=== PATIENT | male | born 1945 | race Caucasian/White ===

== ENCOUNTER 2016-08-20 09:55 | Inpatient (IN) | payer OTHER ==
[~2016-08-20] VITALS: Ht 167.6 cm; Wt 85.0 kg
[~2016-08-20 09:55] MED LIST: ALLO300T2 PO; AMLO-147 PO; ASPI-664 PO; ATOR20TA38 PO; HYDR-3671 PO; LEVO500T72 PO; MED4DP PO; METO25TA7 PO; MTF1000T PO
[2016-08-20] MEDS ORDERED: APR50 PO (10:37)
[2016-08-20] MEDS ORDERED: FURO-110 PO (10:38)
[2016-08-20] MEDS ORDERED: LOSA1TAB20 PO (10:38)
[2016-08-20] MEDS ORDERED: AZITHROMYCIN 500MG/NS (PMX) 250 ML IV STA (10:38)
[2016-08-20] MEDS ORDERED: BUDE6HFA INHALATION (10:38)
[2016-08-20] MEDS ORDERED: CEFTRIAXONE 1 GM/50 ML (PMX) 50 ML IVPB STA (10:38)
[2016-08-20] MEDS ORDERED: LEVALBUTEROL (NEB) 1.25 MG/0.5 ML AMP HHN ONE (11:00)
[2016-08-20] MEDS ORDERED: IPRATROPIUM (NEB) 0.5 MG/2.5 ML AMP INH ONE (11:00)
--- NOTE | 2016-08-20 11:13 | RADRPT ---
PROCEDURE: XR Chest. CLINICAL INDICATION: Shortness of breath. TECHNIQUE: Single frontal view of the chest was obtained COMPARISON: Chest x-ray 08/27/2015 09:24 a.m. FINDINGS: There are atherosclerotic calcifications in the aortic arch. There are degenerative osteophytes in the thoracic spine. The soft tissues are generous. The heart, pulmonary vasculature, lung chatterjee an d pleural spaces are normal. The left ventricle is mildly enlarged. There are clips in the left para tracheal area. IMPRESSION: 1. Atherosclerosis aortic arch with no evidence of an acute infiltrate. 2. Mild left ventricular enlargement. 3. Spondylosis of the thoracic spine. 4. No significant changes noted as compared to 08/27/2015. RPTAT:AAJJ Physician Timbo Date Time Electronically viewed and signed by Physician Timbo on 08/20/2016 11:13 SHIVA/
[2016-08-20 11:17] LABS: BASOPHILS % 0.1 % (0.0-2.0); HEMATOCRIT 44.2 % (42.0-52.0); HEMOGLOBIN 14.9 g/dl (14.0-18.0); LYMPHOCYTES # 0.3 10^3/ul (0.8-2.9); LYMPHOCYTES % 2.5 % (15.0-51.0); MEAN CORPUSCULAR HEMOGLOBIN 30.7 pg (29.0-33.0); MEAN CORPUSCULAR HGB CONC 33.7 g/dl (32.0-37.0); MEAN CORPUSCULAR VOLUME 91.1 fl (82.0-101.0); MEAN PLATELET VOLUME 9.8 fl (7.4-10.4); MONOCYTE # 0.4 10^3/ul (0.3-0.9); MONOCYTES % 3.8 % (0.0-11.0); NEUTROPHIL # 9.7 10^3/ul (1.6-7.5); NEUTROPHILS % 93.6 % (39.0-77.0); PLATELET COUNT 169 10^3/UL (140-440); RED BLOOD COUNT 4.86 10^6/ul (4.70-6.10); RED CELL DISTRIBUTION WIDTH 15.8 % (11.5-14.5); UNCORRECTED WBC 10.4 10^3/ul (4.8-10.8); WHITE BLOOD COUNT 10.4 10^3/ul (4.8-10.8)
[2016-08-20 11:18] LABS: CONDITION 1; LH ANALYZER COMMENTS 1
[2016-08-20 11:27] LABS: ALBUMIN 4.4 g/dl (3.3-4.9)
[2016-08-20 11:28] LABS: POTASSIUM 3.6 mmol/L (3.5-5.1)
[2016-08-20 11:29] LABS: CREATININE 3.5 mg/dl (0.61-1.24)
[2016-08-20 11:30] LABS: ALBUMIN/GLOBULIN RATIO 1.18; BILIRUBIN,INDIRECT 1.1 mg/dl (0-1.1); BILIRUBIN,TOTAL 1.1 mg/dl (0.2-1.3); TOTAL PROTEIN 8.1 g/dl (6.1-8.1)
[2016-08-20 11:31] LABS: CALCIUM 8.9 mg/dl (8.4-10.2)
[2016-08-20 11:46] LABS: TROPONIN-I 2.39 ng/ml (0.00-0.12)
[2016-08-20] MEDS ORDERED: ENOXAPARIN 100 MG/ML SYG SC ONE (12:30)
[2016-08-20 13:25] LABS: D-DIMER 3063.15 ng/ml (<460)
[2016-08-20] MEDS ORDERED: FUROSEMIDE 40 MG INJ IV ONE (14:00)
--- NOTE | 2016-08-20 14:09 | ERA ---
ER Documentation Chief Complaint Date/Time DATE: 08/20/16 TIME: 14:04 Chief Complaint sob for the past few days. no fevers. no cough or congestion no cp HPI This is 71-year-old male who states he had shortness of breath this morning that has progressively gotten worse over the past 2 days. He says that he is having dyspnea on exertion and orthopnea now and he never has had prior cardiac history. He has not had any chest pain. The daughter states that he had a fever and cough 3 days ago but lasted 1 day. Patient does not have any leg pain back pain abdominal pain nausea vomiting. He has no cough currently. He said this morning gradually started having increased work of breathing. His oxygenation level was 91% in triage ROS All systems reviewed and are negative except as per history of present illness. Medications Home Meds Active Scripts Methylprednisolone* (Medrol* DOSE PACK) 4 Mg/Dose-Pack Tab.ds.pk, 4 MG PO . DIRECTED for 6 Days, PACKET Prov:ASHWINI STARK MD 08/28/15 Levofloxacin* (Levaquin*) 500 Mg Tablet, 500 MG PO DAILY for 7 Days, TAB Prov:ASHWINI STARK MD 08/28/15 Reported Medications Budesonide-Formoterol Fumarate* (Symbicort*) 160-4.5 Hfa.aer.ad, 2 PUFF INHALATION BID, #1 EACH 08/20/16 Losartan-Hydrochlorothiazide (Losartan-HCTZ) 100-25 Mg Tab, 1 TAB PO DAILY, TAB 08/20/16 Furosemide* (Lasix*) 20 Mg Tablet, 20 MG PO DAILY, TAB 08/20/16 Hydralazine Hcl* (Hydralazine Hcl*) 50 Mg Tab, 50 MG PO Q8, #90 TAB 08/20/16 Atorvastatin Calcium* (Atorvastatin Calcium*) 20 Mg Tablet, 20 MG PO QHS, #30 TAB 08/23/15 Aspirin* (Aspirin* EC) 81 Mg Tablet.dr, 81 MG PO DAILY, TAB 08/23/15 Metoprolol Succinate* (Toprol XL*) 25 Mg Tab.sr.24h, 25 MG PO DAILY, #30 TAB 08/23/15 Amlodipine Besylate* (Amlodipine Besylate*) 10 Mg Tablet, 10 MG PO DAILY, #30 TAB 08/23/15 Metformin* (Glucophage*) 1,000 Mg Tablet, 1000 MG PO BID, #60 TAB 08/23/15 Allopurinol* (Allopurinol*) 300 Mg Tablet, 300 MG PO DAILY, TAB 08/23/15 Discontinued Reported Medications Hydralazine Hcl* (Hydralazine Hcl*) 25 Mg Tab, 25 MG PO Q8, #90 TAB 08/23/15 Allergies Allergies: Coded Allergies: No Known Allergy (Unverified , 08/20/16) PMhx/Soc History of Surgery: Yes (L Foot surgery, L carotid Endarterectomy) Anesthesia Reaction: No Hx Neurological Disorder: No Hx Respiratory Disorders: Yes (COPD ) Hx Cardiac Disorders: Yes (htn, CHF) Hx Psychiatric Problems: No Hx Miscellaneous Medical Probl: Yes (CENTRAL OBESITY) Hx Alcohol Use: No Hx Substance Use: No Hx Tobacco Use: Yes Smoking Status: Former smoker FmHx Family History: No coronary disease Physical Exam Vitals Vital Signs Date Time Temp Pulse Resp B/P Pulse Ox O2 Delivery O2 Flow Rate FiO2 08/20/16 13:45 105 22 123/81 100 Mask 08/20/16 11:09 120 28 92 Nasal Cannula 5.0 08/20/16 10:40 Nasal Cannula 5 08/20/16 10:40 Nasal Cannula 5.0 08/20/16 09:59 100.0 125 32 143/82 89 Physical Exam Const: Well-developed, well-nourished Head: Atraumatic, normocephalic Eyes: Normal Conjunctiva, PERRLA, EOMI, normal sclera, no nystagmus ENT: Normal External Ears, Nose and Mouth, moist mucus membranes. Neck: Full range of motion. No meningismus, no lymphadenopathy. Resp: Slight increased work of breathing with diffuse rhonchi scattered throughout both lung chatterjee Cardio: Tachycardia no murmurs, S1 S2 present Abd: Soft, non tender x 4, non distended. Normal bowel sounds, no guarding or rebound, no pulsitile abdominal masses or bruits Skin: No petechiae or rashes, no ecchymosis , no maculopapular rash Back: No midline or flank tenderness Ext: No cyanosis, or edema, FROM x 4, normal inspection, neurovascularly intact x 4 Neur: Awake and alert, STR 5/5 x 4, sensation intact x 4, no focal findings, cerebellum intact Psych: Normal Mood and Affect Result Diagram: 2/7/17 1030 08/20/16 1030 Results 24 hrs Laboratory Tests Test 08/20/16 10:30 08/20/16 11:30 Alanine Aminotransferase (ALT/SGPT) 60IU/L Albumin 4.4g/dl Albumin/Globulin Ratio 1.18 Alkaline Phosphatase 163IU/L Anion Gap 28 Aspartate Amino Transf (AST/SGOT) 77IU/L B-Type Natriuretic Peptide 53171WN/ML Basophils # 0.010^3/ul Basophils % 0.1% Blood Morphology Comment Blood Urea Nitrogen 66mg/dl Calcium Level 8.9mg/dl Carbon Dioxide Level 21mmol/L Chloride Level 90mmol/L Creatinine 3.50mg/dl Direct Bilirubin 0.00mg/dl Eosinophils # 0.010^3/ul Eosinophils % 0.0% Globulin 3.70g/dl Glucose Level 207mg/dl Hematocrit 44.2% Hemoglobin 14.9g/dl Indirect Bilirubin 1.1mg/dl Lymphocytes # 0.310^3/ul Lymphocytes % 2.5% Mean Corpuscular Hemoglobin 30.7pg Mean Corpuscular Hemoglobin Concent 33.7g/dl Mean Corpuscular Volume 91.1fl Mean Platelet Volume 9.8fl Monocytes # 0.410^3/ul Monocytes % 3.8% Neutrophils # 9.710^3/ul Neutrophils % 93.6% Nucleated Red Blood Cells # 0.010^3/ul Nucleated Red Blood Cells % 0.0/100WBC Platelet Count 95542^3/UL Potassium Level 3.6mmol/L Red Blood Count 4.8610^6/ul Red Cell Distribution Width 15.8% Sodium Level 135mmol/L Total Bilirubin 1.1mg/dl Total Protein 8.1g/dl Troponin I 2.390ng/ml White Blood Count 10.410^3/ul D-Dimer 3063.15ng/ml D-Dimer Comment Current Medications Medications (Trade) Dose Ordered Sig/Renato Route PRN Reason Start Time Stop Time Status Last Admin Dose Admin Ipratropium Justice 1.5 mg 1.5 mg ONCE ONCE INH 08/20/16 11:00 08/20/16 11:01 DC 08/20/16 11:08 Azithromycin 250 ml @ 250 mls/hr ONCE STAT IV 08/20/16 10:38 08/20/16 11:37 DC 2/7/17 11:44 Ceftriaxone Sodium (Rocephin) 50 ml @ 100 mls/hr ONCE STAT IVPB 08/20/16 10:38 08/20/16 11:07 DC 08/20/16 10:50 Levalbuterol (Xopenex Neb) 1.25 mg ONCE ONCE HHN 08/20/16 11:00 08/20/16 11:01 DC 08/20/16 11:08 Enoxaparin Sodium (Lovenox) 90 mg ONCE ONCE SC 08/20/16 12:30 08/20/16 12:31 DC 08/20/16 12:34 Furosemide (Lasix) 40 mg ONCE ONCE IV 08/20/16 14:00 08/20/16 14:01 UNV Procedures/MDM EKG: Rate/Rhythm: Sinus tachycardia QRS, ST, QT: NORMAL FL, QRS, QT] Impression: Sinus tachycardia ]PROCEDURE: XR Chest. CLINICAL INDICATION: Shortness of breath. TECHNIQUE: Single frontal view of the chest was obtained COMPARISON: Chest x-ray 08/27/2015 09:24 a.m. FINDINGS: There are atherosclerotic calcifications in the aortic arch. There are degenerative osteophytes in the thoracic spine. The soft tissues are generous. The heart, pulmonary vasculature, lung chatterjee and pleural spaces are normal. The left ventricle is mildly enlarged. There are clips in the left paratracheal area. IMPRESSION: 1. Atherosclerosis aortic arch with no evidence of an acute infiltrate. 2. Mild left ventricular enlargement. 3. Spondylosis of the thoracic spine. 4. No significant changes noted as compared to 08/27/2015. RPTAT:AAJJ Physician Timbo Date Time Electronically viewed and signed by Paddy Santizo Physician on 08/20/2016 11:13 SHIVA/ CC: SUSANA BABCOCK DO Patient has an elevated troponin and d-dimer and BNP. This patient may have had a myocardial infarction, though silent, that is put him into heart failure. There is no overt heart failure on chest x-ray however he sounds on his lung exam are consistent with heart failure. He also could have had a pulmonary embolism causing an elevated troponin and BNP I have ordered a VQ scan because his creatinine is too high however this may be inconclusive We will need to order sonogram of legs Been treated with Lovenox We will admit to telemetry for further workup Critical Care Time: 30 minutes Treatments/Evaluations: Close monitoring and treatment of unstable vital signs, cardiorespiratory, and neurologic status, while maintaining tight balance of fluid, respiratory, and cardiac interventions. This time includes discussing the case with the patient and the patient's family. This time does not include all procedures stated elsewhere in this record. This time also includes reviewing old records, labs and radiological studies. This time includes examining and re-examining the patient. Additionally, this time also includes arranging care with admitting and consulting physicians. Departure Diagnosis: Primary Impression: Non-STEMI (non-ST elevated myocardial infarction) Additional Impression: Dyspnea Qualified Code: R06.00 - Dyspnea, unspecified type Condition: Stable SUSANA BABCOCK DO Aug 20, 2016 14:08
[2016-08-20] MEDS ORDERED: ONDANSETRON 4 MG INJ IV PRN ×2 (14:30→15:30)
[2016-08-20] MEDS ORDERED: ACETAMINOPHEN 325 MG TAB PO PRN ×2 (14:30→15:30)
--- NOTE | 2016-08-20 14:57 | RADRPT ---
PROCEDURE: US Lower extremity Venous. CLINICAL INDICATION: Bilateral lower extremity swelling TECHNIQUE: Multiple sonographic images of the bilateral lower extremity deep venous system was obt ained utilizing grayscale, color-flow, compressive sonography and doppler imaging with augmentation. The images were reviewed on a PACS workstation. COMPARISON: None. FINDINGS: There is normal compressibility and flow within the bilateral common femoral, superficial femoral , posterior tibial and popliteal veins. RPTAT: AA IMPRESSION: No sonographic evidence for deep venous thrombosis. .David Hughes MD, MD Date Time Electronically viewed and signed by .David Hughes MD, on 08/20/2016 14:56 .S/
[2016-08-20] MEDS ORDERED: NITROGLYCERIN (SL) 0.4 MG TAB SL PRN (15:30)
[2016-08-20] MEDS ORDERED: HEPARIN 1000 UNITS/ML 10 ML INJ IV ONE (15:30)
[2016-08-20] MEDS ORDERED: LORAZEPAM 2 MG INJ IV PRN (15:30)
[2016-08-20] MEDS ORDERED: NACL 0.9% 3 ML SYG IV SCH (15:30)
[2016-08-20] MEDS ORDERED: DOCUSATE SODIUM 100 MG CAP PO PRN (15:30)
[2016-08-20] MEDS ORDERED: HEPARIN 1000 UNITS/ML 10 ML INJ IV PRN (15:30)
[2016-08-20] MEDS ORDERED: HEPARIN 25000 UNITS/D5W 250 ML IV SCH (16:00)
[2016-08-20] MEDS ORDERED: GLUCOSE GEL 15 GRAM TUBE PO PRN ×2 (16:30)
[2016-08-20] MEDS ORDERED: DEXTROSE 50% 50 ML SYRINGE IV PRN ×2 (16:30)
[2016-08-20] MEDS ORDERED: GLUCAGON 1 MG INJ IM PRN (16:30)
[2016-08-20] MEDS ORDERED: GLUCOSE GEL 15 GRAM TUBE BUCCAL PRN (16:30)
[2016-08-20 16:34] LABS: INR 0.87; PROTIME 11.8 Sec (12.2-14.2); PT RATIO 0.9
[2016-08-20 16:35] LABS: PARTIAL THROMBOPLASTIN TIME 40.7 Sec (25.0-35.0)
--- NOTE | 2016-08-20 16:35 | RADRPT ---
PROCEDURE: US Renal CLINICAL INDICATION: renal failure TECHNIQUE: Multiple sonographic images of the kidneys and bladder were obtained. Evaluation of th e kidneys and bladder was performed as well with pink scale and color and Doppler evaluation using a curved array transducer. The images were reviewed on a high-resolution PACS workstation. COMPARISON: No prior studies are available for comparison. FINDINGS: The right kidney measures 11.6 cm in length. The left kidney measures 12.4 cm in length. Mild increased echogenic kidneys. Focal 7 mm echogenic structure in the left kidney. No hydronephrosis. The bladder is grossly unrema rkable. IMPRESSION: No hydronephrosis. 7 mm nonobstructing left renal stone suggested. Echogenic kidneys can be seen with medical renal disease. RPTAT: AA .Jarad Bhandari MD, MD Date Time Electronically viewed and signed by .Jarad Bhandari MD, MD on 08/20/2016 16:35 .T/
[2016-08-20 16:36] LABS: CHOL/HDL RATIO 4.9 RATIO; MAGNESIUM 1.6 mg/dl (1.7-2.5)
--- NOTE | 2016-08-20 16:46 | HP ---
Date/Time of Note Date/Time of Note DATE: 08/20/16 TIME: 16:25 Assessment/Plan VTE Prophylaxis VTE Prophylaxis Intervention: heparin Assessment/Plan Assessment/Plan 71 yo male with past medical history of COPD, Essential Hypertension, Smoking abuse, Type II DM, CAD s/p PCI who presents with shortness of breath and lightheadedness. 1. Acute hypoxemic respiratory failure - 2/2 ACS vs PE - will admit the patient to telemetry, consult pulmonology, consult cardiology, obtain a 2D ECHO, cycle cardiac markers, check TSH/Mag, Morphine/BB/Aspirin/NTG SL prn, heparin drip 2. NSTEMI - will continue with heparin drip, see #1 3. CHF diastolic dysfunction - acute on chronic - continue with lasix, elevated BNP 4. Acute Renal Failure - 2/2 to ATN - will consult nephrology, IVF, renally adjust medications, avoid nephrotoxins 5. Essential Hypertension - continue with BB, HCTZ, lisinopril 6. Type II DM - check hgba1c, ISS 7. CAD s/p PCI - see #1 8. COPD - see #1, continue with nebulizers and symbicort 9. GI ppx - pepcid 10. DVT ppx - heparin gtt answered all of his questions. as per clinical course. this history and physical took greater then 45 minutes to complete HPI/ROS Admit Date/Time Admit Date/Time 08/20/2016, 4:26 pm Hx of Present Illness 71 yo male with past medical history of COPD, Essential Hypertension, Smoking abuse, Type II DM, CAD s/p PCI who presents with shortness of breath and lightheadedness. The patient states that for the last several days he has been having progressively worsening shortness of breath. He has been using his nebulizers and aerosol treatments for a longer period of time. Otherwise complains of chills, one episode of nausea with NBNB vomiting, no diarrhea/ constipation, and malaise. Otherwise denies any cardiac/pleuritic chest pain, loss of consciousness, headaches, urinary/bowel irregularities, or other constitutional symptoms. He did have a heart cath last year 03/2016 and underwent a PCI. ED course: therapeutic dose of lovenox, breathing treatments, V/Q scan ECHO: 08/2015 Conclusions 1. Normal left ventricular systolic function. Normal left ventricular cavity size. Normal left ventricular wall thickness. Ejection fraction is visually estimated at 60 %. Tissue Doppler/Mitral Doppler indices are consistent with impaired relaxation (Stage I diastolic dysfunction). 2. No significant aortic stenosis or insufficiency. severely thickened Non coronary cusp. clinical correlation is required. 3. Normal appearance of the tricuspid valve. Unable to obtain RVSP due to minimal presence of tricuspid regurgitation. 4. Normal appearance and function of the mitral valve with trace physiologic regurgitation. ROS 14 point review of systems completed, please refer to HPI for any positive findings PMH/Family/Social Past Medical History COPD Medical History: coronary artery disease, diabetes, high cholesterol, hypertension Past Surgical History PCI, left CEA, foot surgery Family History Significant Family History: hypertension (mother), other (both parents are ) Social History Alcohol Use: rarely Smoking Status: Former smoker Drug Use: none Exam/Review of Systems Vital Signs Vitals Vital Signs Date Time Temp Pulse Resp B/P Pulse Ox O2 Delivery O2 Flow Rate FiO2 08/20/16 16:00 101 20 122/79 08/20/16 13:45 100 Mask 08/20/16 11:09 5.0 08/20/16 09:59 100.0 Exam Exam Gen Aguila: moderate respiratory distress, AAOx4, obese male HEENT: NC/AT, PERRLA, EOMI, no pharyngeal erythema, no tonsillar exudates, no lymphadenopathy, no JVD, no carotid bruits NECK: supple, no thyromegaly THORAX: symmetrical, no obvious deformities CV: S1S2, RRR, no M/G/R Lungs: coarse breath sounds, with diminished breath sounds to the bases bilaterally, no overt wheezing or crackles appreciated Abd: soft, NT/ND, +BS, no rebound, no guarding, neg HSM, protuberant EXT: trace bilateral lower extremity edema, no ecchymosis, no clubbing, FROM Neuro: CN II-XII grossly intact, no focal deficits Psych: fair mood and affect Skin: C/D/I Labs Result Diagram: 08/20/16 1030 08/20/16 1030 Medications Medications Current Medications Sodium Chloride (NS) 1,000 ml @ 50 mls/hr Q20H IV ; Start 08/21/16 at 00:00 Lorazepam (Ativan) 0.5 mg Q6H PRN IV ANXIETY; Start 08/20/16 at 15:30 Ondansetron HCl (Zofran Inj) 4 mg Q6H PRN IV NAUSEA AND/OR VOMITING; Start 08/20 at 15:30 Aspirin (Aspirin) 81 mg DAILY PO ; Start 08/21/16 at 09:00 Nitroglycerin (Nitroglycerin (Sl Tab) 0.4 Mg) 1 tab Q5M PRN SL CHEST PAIN; Start 08/20/16 at 15:30 Acetaminophen (Tylenol Tab) 650 mg Q6H PRN PO PAIN LEVEL 1-3 OR FEVER; Start at 15:30 Morphine Sulfate (morphine) 2 mg Q4H PRN IV PAIN LEVEL 7-10; Start 08/20/16 at 15:30 Docusate Sodium (Colace) 100 mg Q12H PRN PO CONSTIPATION; Start 08/20/16 at 15: 30 Famotidine (Pepcid Iv) 20 mg DAILY IV ; Start 08/20/16 at 21:00 Atorvastatin Calcium (Lipitor) 20 mg QHS PO ; Start 08/20/16 at 21:00 Hydralazine HCl (Apresoline) 50 mg Q8 PO ; Start 08/20/16 at 22:00 Metoprolol Succinate (Toprol Xl) 25 mg DAILY PO ; Start 08/21/16 at 09:00 Hydrochlorothiazide (Hydrochlorothiazide) 25 mg DAILY PO ; Start 08/21/16 at 09: 00 Salmeterol Xinafoate/ Fluticasone (Advair 250/50 Diskus) 1 inh BID INH ; Start 08/20/16 at 21:00 Furosemide (Lasix) 20 mg BID IV ; Start 08/20/16 at 21:00 Miscellaneous Information 1 ea NOTE XX ; Start 08/20/16 at 16:30 Glucose (Glutose) 15 gm Q15M PRN PO DECREASED GLUCOSE; Start 08/20/16 at 16:30 Glucose (Glutose) 22.5 gm Q15M PRN PO DECREASED GLUCOSE; Start 08/20/16 at 16:30 Dextrose (D50w Syringe) 25 ml Q15M PRN IV DECREASED GLUCOSE; Start 08/20/16 at 16:30 Dextrose (D50w Syringe) 50 ml Q15M PRN IV DECREASED GLUCOSE; Start 08/20/16 at 16:30 Glucagon (Glucagen) 1 mg Q15M PRN IM DECREASED GLUCOSE; Start 08/20/16 at 16:30 Glucose (Glutose) 15 gm Q15M PRN BUCCAL DECREASED GLUCOSE; Start 08/20/16 at 16: 30 Procedures Procedures Venous Duplex LE IMPRESSION: No sonographic evidence for deep venous thrombosis. CXR IMPRESSION: 1. Atherosclerosis aortic arch with no evidence of an acute infiltrate. 2. Mild left ventricular enlargement. 3. Spondylosis of the thoracic spine. 4. No significant changes noted as compared to 08/27/2015. GEOVANNI GUEVARA MD Aug 20, 2016 16:36
[2016-08-20 17:07] LABS: THYROID STIMULATING HORMONE 1.56 MIU/L (0.465-4.680)
--- NOTE | 2016-08-20 17:11 | CONS ---
DATE OF ADMISSION: 08/20/2016 DATE OF CONSULTATION: 08/20/2016 REFERRING PHYSICIAN: Pedro Bashir, Nephrology. REASON FOR CONSULTATION: Acute kidney injury. Creatinine 3.5. HISTORY OF PRESENT ILLNESS: This is a 71-year-old male who has a past medical history of hypertensi on, CHF, COPD, diabetes mellitus, history of previous carotid atherosclerosis had a carotid endarter ectomy. The patient presented with a complaint of shortness of breath for the past few days. No f ever, no cough or congestion. The patient has a very congested lung examination and had a high BMP. The patient is noted to have a possible congestive heart failure exacerbation and also is noted t o have acute kidney injury with a creatinine of 3.5. The patient gives a history of dyspnea on exer tion and orthopnea now. Denies any previous cardiac history. He had a fever and cough 3 days ago, but this lasted for 1 day, currently no fever, no chills, headache, dizziness, blurry vision, consti pation, diarrhea, dysuria, increased urinary frequency. He was saturating 91% on room air. The patient denies any dysuria, hematuria or any hesitancy in the urine flow. He also denies any bl ood in the urine. No fevers, chills, headache. REVIEW OF SYSTEMS: As per HPI. PAST MEDICAL HISTORY: Hypertension, COPD, borderline diabetes mellitus, history of congestive heart failure, obesity. PAST SURGICAL HISTORY: History of left foot surgery, history of left carotid endarterectomy. FAMILY HISTORY: Noncontributory. SOCIAL HISTORY: No smoking, alcohol or recreational drug use. PHYSICAL EXAMINATION: VITAL SIGNS: Temperature 100, heart rate 105, respiration 22, blood pressure 122/79, saturation 100 % on face mask. GENERAL: Awake, in moderate distress due to the shortness of breath and hypoxia. HEENT: Pupils equal, round, reactive to light. NECK: Jugular venous distention up to the mid-neck. Neck supple. HEART: S1, S2, tachycardia, no murmur. LUNGS: Bilateral basilar crackles present. No wheezing. ABDOMEN: Soft, nontender, nondistended. Bowel sounds are present. EXTREMITIES: No clubbing, cyanosis, edema. NEUROLOGICAL: Nonfocal, intact. PSYCHIATRIC: Appropriate affect and mood. LABORATORY DATA AND DIAGNOSTIC IMAGING: Sodium 135, potassium 3.6, chloride 90, bicarbonate 21, BU N 66, creatinine 3.5, glucose 207, calcium 8.9. BNP 13,700. Troponin 2.39, albumin 4.4. D-dimer i s 3063. WBC 10.4, hemoglobin 14.9, platelet count is 169, Chest x-ray shows no obvious infiltrates. Lower extremity Doppler ultrasound is negative for DVT. IMPRESSION: This is a 71-year-old male with: 1. Acute hypoxic respiratory distress, likely secondary to congestive heart failure, diastolic, rul e out pulmonary embolism. 2. Elevated D-dimer. Rule out pulmonary embolisms. 3. Acute kidney injury versus acute kidney injury on chronic kidney disease, unknown stage, seconda ry to cardiorenal syndrome. 4. 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 5. History of congestive heart failure. 6. History of chronic obstructive pulmonary disease. 7. Acute non-ST elevation myocardial infarction. PLAN: Thank you, Dr. Bashir, for this consultation. Patient is currently seen in the emergency ro om. He is ordered to have a VQ scan to rule out pulmonary embolism. The patient cannot have a CT a ngiogram due to the elevated creatinine. I will order the CK total and uric acid with a.m. labs. 1. Urine studies including UA, urine sodium, urine protein, urine creatinine and urine eosinophils has been ordered. 2. I will stop the patient's Losartan 100 mg due to the creatinine of 3.5. 3. The patient received Lasix 40 mg IV x1 in the emergency room. I will start the patient on Lasix 20 mg IV b.i.d. 4. Heparin drip has been started with anticipation of pulmonary embolisms. 5. IV antibiotics to cover for pneumonia since the patient is febrile in the emergency room. 6. Lovenox has been given for elevated troponin consistent with non-ST elevation myocardial infarct ion. 7. Renal ultrasound has been ordered for the workup of acute kidney injury. Thank you, Dr. Bashir, for this consultation. I will continue to follow this patient while being i n the [facility]. Dictated By: LUBNA TAVARES MD, KP/JOVANNY Conf#: [id number] DID#: [id number]
--- NOTE | 2016-08-20 17:35 | CONS ---
Date/Time of Note Date/Time of Note DATE: 08/20/16 TIME: 17:26 Assessment/Plan Assessment/Plan Additional Assessment/Plan Acute kidney injury Elevated troponin concerning for non-ST elevation NM CAD with history of PCI COPD exacerbation Chronic respiratory failure Diabetes -Would continue IV heparin, patient was on Effient and tells me he has been compliant with medications. Would restart. Continue aspirin and statin therapy. Trend cardiac enzymes, obtain echocardiogram, telemetry monitoring. Hold all nephrotoxic medications. Respiratory treatment and oxygen supplementation. Consultation Date/Type/Reason Admit Date/Time 08/20/2016, 4:26 pm Type of Consultation: cv Reason for Consultation Elevated troponin Hx of Present Illness This is a 71-year-old male with history of COPD on home oxygen, CAD with PCI in March 2016, hypertension, who presents with fatigue, cough and shortness of breath going on for one week. Patient with intermittent fevers and chills. Cough is mildly productive with mild wheezing. Patient's fatigue continued to worsen today as well as cough so he came to the emergency room for evaluation. Denies any chest pain, dizziness or lightheadedness. He denies palpitations. He denies nausea or abdominal pain. 12 point review of systems was performed with all pertinent positives and negatives mentioned above and all else is negative Past Medical History COPD on home oxygen Medical History: coronary artery disease, diabetes, high cholesterol, hypertension Past Surgical History Past Surgical Hx: angioplasty Family History Significant Family History: no pertinent family hx Social History Alcohol Use: rarely Smoking Status: Former smoker Drug Use: none Exam/Review of Systems Vital Signs Vitals Vital Signs Date Time Temp Pulse Resp B/P Pulse Ox O2 Delivery O2 Flow Rate FiO2 08/20/16 16:00 101 20 122/79 08/20/16 13:45 100 Mask 08/20/16 11:09 5.0 08/20/16 09:59 100.0 Exam Mild dyspnea with wheezing, no apparent distress Constitutional: alert, oriented Head: normocephalic Neck: supple Respiratory: other (course breath sounds bilaterally with mild scattered rhonchi, minimal end expiratory wheezing) Cardiovascular: other (S1-S2 heard), regular rate and rhythm Gastrointestinal: bowel sounds, non-tender, soft Extremities: edema Results Result Diagram: 08/20/16 1030 08/20/16 1030 Results 24 hrs Laboratory Tests Test 08/20/16 10:30 08/20/16 11:30 08/20/16 15:30 Alanine Aminotransferase (ALT/SGPT) 60 Albumin 4.4 Albumin/Globulin Ratio 1.18 Alkaline Phosphatase 163 H Anion Gap 28 H Aspartate Amino Transf (AST/SGOT) 77 H B-Type Natriuretic Peptide 45528 H Basophils # 0.0 Basophils % 0.1 Blood Morphology Comment Blood Urea Nitrogen 66 H Calcium Level 8.9 Carbon Dioxide Level 21 Chloride Level 90 L Cholesterol Level 152 Cholesterol/HDL Ratio 4.9 Creatinine 3.50 H Direct Bilirubin 0.00 Eosinophils # 0.0 Eosinophils % 0.0 Globulin 3.70 H Glucose Level 207 HDL Cholesterol 31 Hematocrit 44.2 Hemoglobin 14.9 Indirect Bilirubin 1.1 LDL Cholesterol, Calculated 79 Lymphocytes # 0.3 L Lymphocytes % 2.5 L Magnesium Level 1.6 L Mean Corpuscular Hemoglobin 30.7 Mean Corpuscular Hemoglobin Concent 33.7 Mean Corpuscular Volume 91.1 Mean Platelet Volume 9.8 Monocytes # 0.4 Monocytes % 3.8 Neutrophils # 9.7 H Neutrophils % 93.6 H Nucleated Red Blood Cells # 0.0 Nucleated Red Blood Cells % 0.0 Platelet Count 169 # Potassium Level 3.6 Red Blood Count 4.86 Red Cell Distribution Width 15.8 H Sodium Level 135 Thyroid Stimulating Hormone (TSH) Pending Total Bilirubin 1.1 Total Protein 8.1 Triglycerides Level 211 H Troponin I 2.390 *H White Blood Count 10.4 D-Dimer 3063.15 H D-Dimer Comment Activated Partial Thromboplast Time 40.7 H INR International Normalized Ratio 0.87 Prothrombin Time 11.8 L Prothrombin Time Ratio 0.9 Medications Medications Current Medications Sodium Chloride (NS) 1,000 ml @ 50 mls/hr Q20H IV ; Start 08/21/16 at 00:00 Lorazepam (Ativan) 0.5 mg Q6H PRN IV ANXIETY; Start 08/20/16 at 15:30 Ondansetron HCl (Zofran Inj) 4 mg Q6H PRN IV NAUSEA AND/OR VOMITING; Start 08/20 at 15:30 Aspirin (Aspirin) 81 mg DAILY PO ; Start 08/21/16 at 09:00 Nitroglycerin (Nitroglycerin (Sl Tab) 0.4 Mg) 1 tab Q5M PRN SL CHEST PAIN; Start 08/20/16 at 15:30 Acetaminophen (Tylenol Tab) 650 mg Q6H PRN PO PAIN LEVEL 1-3 OR FEVER; Start at 15:30 Morphine Sulfate (morphine) 2 mg Q4H PRN IV PAIN LEVEL 7-10; Start 08/20/16 at 15:30 Docusate Sodium (Colace) 100 mg Q12H PRN PO CONSTIPATION; Start 08/20/16 at 15: 30 Famotidine (Pepcid Iv) 20 mg DAILY IV ; Start 08/20/16 at 21:00 Atorvastatin Calcium (Lipitor) 20 mg QHS PO ; Start 08/20/16 at 21:00 Hydralazine HCl (Apresoline) 50 mg Q8 PO ; Start 08/20/16 at 22:00 Metoprolol Succinate (Toprol Xl) 25 mg DAILY PO ; Start 08/21/16 at 09:00 Salmeterol Xinafoate/ Fluticasone (Advair 250/50 Diskus) 1 inh BID INH ; Start 08/20/16 at 21:00 Miscellaneous Information 1 ea NOTE XX ; Start 08/20/16 at 16:30 Glucose (Glutose) 15 gm Q15M PRN PO DECREASED GLUCOSE; Start 08/20/16 at 16:30 Glucose (Glutose) 22.5 gm Q15M PRN PO DECREASED GLUCOSE; Start 08/20/16 at 16:30 Dextrose (D50w Syringe) 25 ml Q15M PRN IV DECREASED GLUCOSE; Start 08/20/16 at 16:30 Dextrose (D50w Syringe) 50 ml Q15M PRN IV DECREASED GLUCOSE; Start 08/20/16 at 16:30 Glucagon (Glucagen) 1 mg Q15M PRN IM DECREASED GLUCOSE; Start 08/20/16 at 16:30 Glucose (Glutose) 15 gm Q15M PRN BUCCAL DECREASED GLUCOSE; Start 08/20/16 at 16: 30 Prasugrel (Effient) 10 mg DAILY PO ; Start 08/20/16 at 17:30; Status UNV Procedures Procedures ECG demonstrates sinus tachycardia at 121 bpm, incomplete right bundle-branch block, QRS 72 ms, nonspecific STT wave abnormalities Eddie Gutierrez DO Aug 20, 2016 17:35
[2016-08-20 17:53] LABS: CK-MB 2.01 ng/ml (0.0-2.4); TROPONIN-I 2.29 ng/ml (0.00-0.12)
[2016-08-20] MEDS: INSULIN ASPART [NOVOLOG] 3 ML PEN SC SCH ×2 (18:00→21:00)
[2016-08-20 18:05] VITALS: TEMP 100
[2016-08-20 20:09] VITALS: PULSE 108
[2016-08-20 20:33] VITALS: BP 140/79; RESP 21
[2016-08-20] MEDS: SALMETEROL/FLUTICASONE 250/50 INHA INH SCH (21:00)
[2016-08-20] MEDS ORDERED: NON-FORMULARY/PATIENT OWN MED (Budesonide-Formoterol Fumarate* (Symbicort*) 2 PUFF) INHALATION SCH (21:00)
[2016-08-20] MEDS ORDERED: ATORVASTATIN 20 MG TAB PO SCH (21:00)
[2016-08-20 21:13] VITALS: Ht 167.6 cm; Wt 85.0 kg
[2016-08-20] MEDS: ATORVASTATIN 40 MG TAB PO SCH (21:31)
[2016-08-20] MEDS: PRASUGREL HYDROCHLORIDE 10 MG TABLET PO SCH (21:31)
[2016-08-20] MEDS: FAMOTIDINE 20 MG INJ IV SCH (21:32)
[2016-08-20] MEDS: METOPROLOL 25 MG TAB PO SCH (21:32)
[2016-08-20] MEDS: FUROSEMIDE 20 MG INJ IV SCH (21:52)
[2016-08-20] MEDS: SOD CHLORIDE 0.9% 1,000 ML IV SCH (21:52)
[2016-08-20] MEDS: morphine 2 MG INJ IV PRN (22:03)
--- NOTE | 2016-08-20 22:15 | RADRPT ---
PROCEDURE: Ventilation-perfusion lung scan CLINICAL INDICATION: 71 -year-old patient with shortness of breath. TECHNIQUE: Following the inhalation of approximately 1.0 mCi of Tc-99m stannous DTPA aerosol, vent ilation images were obtained. The patient was then given an intravenous injection of 5.1 mCi of Tc- 99m MAA, in perfusion images were obtained. COMPARISON: No prior VQ scans. Correlation was made with chest x-ray dated August 20, 2016. FINDINGS: Ventilation images demonstrate nonhomogeneous distribution of activity in the lungs bilaterally. Perfusion images reveal matched nonhomogeneous distribution of activity in both lungs. The findings represent low probability for pulmonary embolus. IMPRESSION: Low probability for pulmonary embolus. RPTAT: QQ .Gail Chino MD, Date Time Electronically viewed and signed by .Gail Chino MD, on 08/20/2016 22:14 .L/
[2016-08-20 22:20] LABS: CK-MB 1.72 ng/ml (0.0-2.4)
[2016-08-20 22:22] LABS: TROPONIN-I 1.98 ng/ml (0.00-0.12)
[2016-08-20] MEDS: HEPARIN 25000 UNITS/250 ML 250 ML IV SCH (22:49)
[2016-08-20 23:11] LABS: ADD UMIC YES; URINE BILIRUBIN (Dip) NEGATIVE (NEGATIVE); URINE BLOOD (Dip) 1+ (NEGATIVE); URINE COLOR LT. YELLOW (YELLOW); URINE GLUCOSE (Dip) NEGATIVE (NEGATIVE); URINE KETONES (Dip) NEGATIVE (NEGATIVE); URINE LEUKOCYTE ESTERASE (Dip) NEGATIVE (NEGATIVE); URINE NITRITE (Dip) NEGATIVE (NEGATIVE); URINE TOTAL PROTEIN (Dip) 2+ (NEGATIVE); URINE UROBILINOGEN (Dip) 0.2 E.U./dL (0.1-1.0)
[2016-08-20 23:22] LABS: BACTERIA,URINE MODERATE; TRANSITIONAL EPI CELLS,URINE MODERATE
[2016-08-21] VITALS (12 sets, daily range): BP systolic 97–133; BP diastolic 62–90; PULSE 89–110; RESP 18–21
[2016-08-21] MEDS: FUROSEMIDE 20 MG INJ IV SCH ×2 (05:37→17:52)
[2016-08-21] MEDS: INSULIN ASPART [NOVOLOG] 3 ML PEN SC SCH ×4 (08:00→20:43)
[2016-08-21 08:21] LABS: BASOPHILS % 0.5 % (0.0-2.0); EOSINOPHILS # 0.1 10^3/ul (0.0-0.5); EOSINOPHILS % 0.9 % (0.0-7.0); HEMATOCRIT 38.9 % (42.0-52.0); LYMPHOCYTES # 0.4 10^3/ul (0.8-2.9); LYMPHOCYTES % 5.6 % (15.0-51.0); MEAN CORPUSCULAR HEMOGLOBIN 30.7 pg (29.0-33.0); MEAN CORPUSCULAR HGB CONC 33.4 g/dl (32.0-37.0); MEAN CORPUSCULAR VOLUME 91.7 fl (82.0-101.0); MEAN PLATELET VOLUME 9.4 fl (7.4-10.4); MONOCYTE # 0.8 10^3/ul (0.3-0.9); MONOCYTES % 10.6 % (0.0-11.0); NEUTROPHIL # 6.5 10^3/ul (1.6-7.5); NEUTROPHILS % 82.4 % (39.0-77.0); PLATELET COUNT 159 10^3/UL (140-440); RED BLOOD COUNT 4.24 10^6/ul (4.70-6.10); RED CELL DISTRIBUTION WIDTH 15.9 % (11.5-14.5); UNCORRECTED WBC 7.9 10^3/ul (4.8-10.8); WHITE BLOOD COUNT 7.9 10^3/ul (4.8-10.8)
[2016-08-21 08:30] LABS: CONDITION 1; LH ANALYZER COMMENTS 1
[2016-08-21 08:34] LABS: POTASSIUM 3.6 mmol/L (3.5-5.1)
[2016-08-21 08:37] LABS: CALCIUM 8.5 mg/dl (8.4-10.2); CREATININE 2.37 mg/dl (0.61-1.24)
[2016-08-21] MEDS ORDERED: LOSARTAN 50 MG TAB PO SCH ×2 (09:00)
[2016-08-21] MEDS ORDERED: HYDROCHLOROTHIAZIDE 25 MG TAB PO SCH (09:00)
[2016-08-21] MEDS ORDERED: NON-FORMULARY/PATIENT OWN MED (Losartan-Hydrochlorothiazide (Losartan-HCTZ) 1 TAB) PO SCH (09:00)
[2016-08-21] MEDS ORDERED: METOPROLOL (XL) 25 MG TAB PO SCH (09:00)
[2016-08-21] MEDS: FAMOTIDINE 20 MG INJ IV SCH (09:15)
[2016-08-21] MEDS: PRASUGREL HYDROCHLORIDE 10 MG TABLET PO SCH (09:15)
[2016-08-21] MEDS: ASPIRIN 81 MG TAB PO SCH (09:15)
[2016-08-21 09:16] LABS: URIC ACID 10.8 mg/dl (3.1-7.9)
[2016-08-21] MEDS: METOPROLOL 25 MG TAB PO SCH ×2 (09:16→20:44)
[2016-08-21] MEDS: SALMETEROL/FLUTICASONE 250/50 INHA INH SCH ×2 (09:16→20:45)
--- NOTE | 2016-08-21 11:12 | PN ---
Date/Time of Note Date/Time of Note DATE: 08/21/16 TIME: 11:07 Assessment/Plan VTE Prophylaxis VTE Prophylaxis Intervention: heparin Lines/Catheters IV [facility]ter Type [facility]from [facility] Peripheral IV Urinary Cath still in place: Yes Reason Cath still needed: urinary retention Assessment/Plan Assessment/Plan 71 yo male with past medical history of COPD, Essential Hypertension, Smoking abuse, Type II DM, CAD s/p PCI who presents with shortness of breath and lightheadedness. 1. Acute hypoxemic respiratory failure - 2/2 ACS vs PE - PE less likely, awaiting ECHO results, c/w pulm recs, supplemental O2, Stress Test today 2. NSTEMI - will continue with heparin drip, see #1 3. CHF diastolic dysfunction - acute on chronic - continue with lasix, elevated BNP, f/u ECHO 4. Acute Renal Failure - 2/2 to ATN - will consult nephrology, IVF, renally adjust medications, avoid nephrotoxins - improving 5. Essential Hypertension - continue with BB, HCTZ, lisinopril 6. Type II DM - hgba1c 7.1, ISS 7. CAD s/p PCI - see #1 8. COPD - see #1, continue with nebulizers and symbicort 9. GI ppx - pepcid 10. DVT ppx - heparin gtt dispo - continue with current treatment, possible stress test today. f/u recs. as per clinical course. this progress note took greater than 40 minutes to complete Subjective 24 Hr Interval Summary Free Text/Dictation Patient was admitted for worsening shortness of breath. still complaining of it , improved. He had a low probability V/Q scan. He was kept NPO as per nursing, possible LHC. Spoke to him about the care plan. 20 minutes spent. Exam/Review of Systems Vital Signs Vitals Vital Signs Date Time Temp Pulse Resp B/P Pulse Ox O2 Delivery O2 Flow Rate FiO2 08/21/16 08:54 100 08/21/16 08:02 98.2 18 133/74 90 08/20/16 20:00 3.0 08/20/16 18:05 Mask Intake and Output 08/20/16 08/20/16 08/21/16 15:00 23:00 07:00 Intake Total 530 ml Output Total 600 ml Balance -70 ml Exam Gen Aguila: mild respiratory distress, AAOx4, obese male HEENT: NC/AT, PERRLA, EOMI, no pharyngeal erythema, no tonsillar exudates, no lymphadenopathy, no JVD, no carotid bruits NECK: supple, no thyromegaly THORAX: symmetrical, no obvious deformities CV: S1S2, RRR, no M/G/R Lungs: coarse breath sounds, with diminished breath sounds to the bases bilaterally, no overt wheezing or crackles appreciated- improving aeration Abd: soft, NT/ND, +BS, no rebound, no guarding, neg HSM, protuberant EXT: trace bilateral lower extremity edema, no ecchymosis, no clubbing, FROM Neuro: CN II-XII grossly intact, no focal deficits Psych: fair mood and affect Skin: C/D/I Results Result Diagram: 08/21/16 0640 08/21/16 0640 Results 24 hrs Laboratory Tests Test 08/20/16 11:30 08/20/16 15:30 08/20/16 17:15 08/20/16 19:39 D-Dimer 3063.15 H D-Dimer Comment Activated Partial Thromboplast Time 40.7 H INR International Normalized Ratio 0.87 Prothrombin Time 11.8 L Prothrombin Time Ratio 0.9 Creatine Kinase 420 H Creatine Kinase Index 0.5 Creatinine Kinase MB (Mass) 2.01 Troponin I 2.290 *H Bedside Glucose 165 Test 08/20/16 21:42 08/20/16 22:00 08/21/16 06:40 08/21/16 09:12 Creatine Kinase 385 H 230 #H Creatine Kinase Index 0.4 Creatinine Kinase MB (Mass) 1.72 Troponin I 1.980 *H Urine Amorphous Urates MANY Urine Bacteria MODERATE Urine Bilirubin NEGATIVE Urine Clarity CLOUDY H Urine Coarse Granular Casts MODERATE Urine Color LT. YELLOW Urine Eosinophils % 0.0 Urine Glucose NEGATIVE Urine Hemoglobin 1+ H Urine Ketones NEGATIVE Urine Leukocyte Esterase NEGATIVE Urine Microscopic RBC 2-5 Urine Microscopic WBC 2-5 Urine Nitrite NEGATIVE Urine Random Creatinine 106.93 Urine Random Sodium 54 Urine Specific Scott 1.025 Urine Total Protein Urine Transitional Epithelial Cells MODERATE Urine Urobilinogen 0.2 E.U./dL Urine pH 5.5 Activated Partial Thromboplast Time 104.1 *H Anion Gap 21 #H Basophils # 0.0 Basophils % 0.5 Blood Morphology Comment Blood Urea Nitrogen 66 H Calcium Level 8.5 Carbon Dioxide Level 26 Chloride Level 94 L Creatinine 2.37 #H Eosinophils # 0.1 Eosinophils % 0.9 Glucose Level 125 # Hematocrit 38.9 L Hemoglobin 13.0 L Hemoglobin A1c 7.1 H Lymphocytes # 0.4 L Lymphocytes % 5.6 L Mean Corpuscular Hemoglobin 30.7 Mean Corpuscular Hemoglobin Concent 33.4 Mean Corpuscular Volume 91.7 Mean Platelet Volume 9.4 Monocytes # 0.8 Monocytes % 10.6 Neutrophils # 6.5 Neutrophils % 82.4 H Nucleated Red Blood Cells # 0.0 Nucleated Red Blood Cells % 0.0 Platelet Count 159 Potassium Level 3.6 Red Blood Count 4.24 L Red Cell Distribution Width 15.9 H Sodium Level 137 Uric Acid 10.8 H White Blood Count 7.9 # Bedside Glucose 130 Medications Medications Current Medications Sodium Chloride (NS) 1,000 ml @ 50 mls/hr Q20H IV Last administered on 21:52; Admin Dose 50 MLS/HR; Start 08/21/16 at 00:00 Lorazepam (Ativan) 0.5 mg Q6H PRN IV ANXIETY; Start 08/20/16 at 15:30 Ondansetron HCl (Zofran Inj) 4 mg Q6H PRN IV NAUSEA AND/OR VOMITING; Start 08/20 at 15:30 Aspirin (Aspirin) 81 mg DAILY PO Last administered on 08/21/16 09:15; Admin Dose 81 MG; Start 08/21/16 at 09:00 Nitroglycerin (Nitroglycerin (Sl Tab) 0.4 Mg) 1 tab Q5M PRN SL CHEST PAIN; Start 08/20/16 at 15:30 Acetaminophen (Tylenol Tab) 650 mg Q6H PRN PO PAIN LEVEL 1-3 OR FEVER; Start at 15:30 Morphine Sulfate (morphine) 2 mg Q4H PRN IV PAIN LEVEL 7-10 Last administered on 08/20/16 22:03; Admin Dose 2 MG; Start 08/20/16 at 15:30 Docusate Sodium (Colace) 100 mg Q12H PRN PO CONSTIPATION; Start 08/20/16 at 15: 30 Famotidine (Pepcid Iv) 20 mg DAILY IV Last administered on 08/21/16 09:15; Admin Dose 20 MG; Start 08/20/16 at 21:00 Hydralazine HCl (Apresoline) 50 mg Q8 PO Last administered on 08/20/16 21:32; Admin Dose 50 MG; Start 08/20/16 at 22:00 Salmeterol Xinafoate/ Fluticasone (Advair 250/50 Diskus) 1 inh BID INH Last administered on 08/21/16 09:16; Admin Dose 1 INH; Start 08/20/16 at 21:00 Miscellaneous Information 1 ea NOTE XX ; Start 08/20/16 at 16:30 Glucose (Glutose) 15 gm Q15M PRN PO DECREASED GLUCOSE; Start 08/20/16 at 16:30 Glucose (Glutose) 22.5 gm Q15M PRN PO DECREASED GLUCOSE; Start 08/20/16 at 16:30 Dextrose (D50w Syringe) 25 ml Q15M PRN IV DECREASED GLUCOSE; Start 08/20/16 at 16:30 Dextrose (D50w Syringe) 50 ml Q15M PRN IV DECREASED GLUCOSE; Start 08/20/16 at 16:30 Glucagon (Glucagen) 1 mg Q15M PRN IM DECREASED GLUCOSE; Start 08/20/16 at 16:30 Glucose (Glutose) 15 gm Q15M PRN BUCCAL DECREASED GLUCOSE; Start 08/20/16 at 16: 30 Prasugrel (Effient) 10 mg DAILY PO Last administered on 08/21/16 09:15; Admin Dose 10 MG; Start 08/20/16 at 17:30 Atorvastatin Calcium (Lipitor) 40 mg QHS PO Last administered on 08/20/16 21:31 ; Admin Dose 40 MG; Start 08/20/16 at 21:00 Metoprolol Tartrate (Lopressor) 25 mg BID PO Last administered on 08/21/16 09: 16; Admin Dose 25 MG; Start 08/20/16 at 21:00 Procedures Procedures NM scan IMPRESSION: Low probability for pulmonary embolus. GEOVANNI GUEVARA MD Aug 21, 2016 11:12
--- NOTE | 2016-08-21 13:07 | CONS ---
Date/Time of Note Date/Time of Note DATE: 08/21/16 TIME: 12:58 Assessment/Plan Assessment/Plan Additional Assessment/Plan 1. Acute hypoxic respiratory distress, likely secondary to congestive heart failure, diastoli 2. Elevated D-dimer. V/Q scan showed low probability of PE. 3. Acute kidney injury versus acute kidney injury on chronic kidney disease, unknown stage, secondary to cardiorenal syndrome. 4. 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 5. History of congestive heart failure. 6. History of chronic obstructive pulmonary disease. 7. Acute non-ST elevation myocardial infarction. 8. Left kidney Non obstructing renal stone PLAN: V/Q showed Low probability PE- on heparin gtt good urine output, Gaspar has good urine output US showed medical renal disease, left kidney non obstructinve renal stone on Lasix 20mg IV BID- CXR in AM Gaspar in place will isidroo david Consultation Date/Type/Reason Admit Date/Time Aug 20, 2016 at 14:25 Initial Consult Date Type of Consultation: NEPHROLOGY Reason for Consultation acute on chronic renal failure Referring Provider: JOAO ALBERTS MD 24 HR Interval Summary Free Text/Dictation Cr better, BUN still same, pt has Urine output 600cc Exam/Review of Systems Vital Signs Vitals Vital Signs Date Time Temp Pulse Resp B/P Pulse Ox O2 Delivery O2 Flow Rate FiO2 08/21/16 12:06 89 08/21/16 11:44 97.7 18 108/65 91 08/21/16 07:35 3.0 08/20/16 18:05 Mask Intake and Output 08/20/16 08/20/16 08/21/16 15:00 23:00 07:00 Intake Total 530 ml Output Total 600 ml Balance -70 ml Exam GENERAL: Awake, in moderate distress due to the shortness of breath and hypoxia. HEENT: Pupils equal, round, reactive to light. NECK: Jugular venous distention up to the mid-neck. Neck supple. HEART: S1, S2, tachycardia, no murmur. LUNGS: Bilateral basilar crackles present. No wheezing. ABDOMEN: Soft, nontender, nondistended. Bowel sounds are present. EXTREMITIES: No clubbing, cyanosis, edema. NEUROLOGICAL: Nonfocal, intact. PSYCHIATRIC: Appropriate affect and mood. Results Result Diagram: 2/8/17 0640 2/8/17 0640 Results 24 hrs Laboratory Tests Test 08/20/16 15:30 08/20/16 17:15 08/20/16 19:39 08/20/16 21:42 Activated Partial Thromboplast Time 40.7 H INR International Normalized Ratio 0.87 Prothrombin Time 11.8 L Prothrombin Time Ratio 0.9 Creatine Kinase 420 H 385 H Creatine Kinase Index 0.5 0.4 Creatinine Kinase MB (Mass) 2.01 1.72 Troponin I 2.290 *H 1.980 *H Bedside Glucose 165 Test 08/20/16 22:00 08/21/16 06:40 08/21/16 09:12 08/21/16 12:04 Urine Amorphous Urates MANY Urine Bacteria MODERATE Urine Bilirubin NEGATIVE Urine Clarity CLOUDY H Urine Coarse Granular Casts MODERATE Urine Color LT. YELLOW Urine Eosinophils % 0.0 Urine Glucose NEGATIVE Urine Hemoglobin 1+ H Urine Ketones NEGATIVE Urine Leukocyte Esterase NEGATIVE Urine Microscopic RBC 2-5 Urine Microscopic WBC 2-5 Urine Nitrite NEGATIVE Urine Random Creatinine 106.93 Urine Random Sodium 54 Urine Specific Jay Em 1.025 Urine Total Protein Urine Transitional Epithelial Cells MODERATE Urine Urobilinogen 0.2 E.U./dL Urine pH 5.5 Activated Partial Thromboplast Time 104.1 *H Anion Gap 21 #H Basophils # 0.0 Basophils % 0.5 Blood Morphology Comment Blood Urea Nitrogen 66 H Calcium Level 8.5 Carbon Dioxide Level 26 Chloride Level 94 L Creatine Kinase 230 #H Creatinine 2.37 #H Eosinophils # 0.1 Eosinophils % 0.9 Glucose Level 125 # Hematocrit 38.9 L Hemoglobin 13.0 L Hemoglobin A1c 7.1 H Lymphocytes # 0.4 L Lymphocytes % 5.6 L Mean Corpuscular Hemoglobin 30.7 Mean Corpuscular Hemoglobin Concent 33.4 Mean Corpuscular Volume 91.7 Mean Platelet Volume 9.4 Monocytes # 0.8 Monocytes % 10.6 Neutrophils # 6.5 Neutrophils % 82.4 H Nucleated Red Blood Cells # 0.0 Nucleated Red Blood Cells % 0.0 Platelet Count 159 Potassium Level 3.6 Red Blood Count 4.24 L Red Cell Distribution Width 15.9 H Sodium Level 137 Uric Acid 10.8 H White Blood Count 7.9 # Bedside Glucose 130 127 Medications Medications Current Medications Sodium Chloride (NS) 1,000 ml @ 50 mls/hr Q20H IV Last administered on t 21:52; Admin Dose 50 MLS/HR; Start 08/21/16 at 00:00 Lorazepam (Ativan) 0.5 mg Q6H PRN IV ANXIETY; Start 08/20/16 at 15:30 Ondansetron HCl (Zofran Inj) 4 mg Q6H PRN IV NAUSEA AND/OR VOMITING; Start 08/20 at 15:30 Aspirin (Aspirin) 81 mg DAILY PO Last administered on 08/21/16 09:15; Admin Dose 81 MG; Start 08/21/16 at 09:00 Nitroglycerin (Nitroglycerin (Sl Tab) 0.4 Mg) 1 tab Q5M PRN SL CHEST PAIN; Start 08/20/16 at 15:30 Acetaminophen (Tylenol Tab) 650 mg Q6H PRN PO PAIN LEVEL 1-3 OR FEVER; Start at 15:30 Morphine Sulfate (morphine) 2 mg Q4H PRN IV PAIN LEVEL 7-10 Last administered on 08/20/16 22:03; Admin Dose 2 MG; Start 08/20/16 at 15:30 Docusate Sodium (Colace) 100 mg Q12H PRN PO CONSTIPATION; Start 08/20/16 at 15: 30 Famotidine (Pepcid Iv) 20 mg DAILY IV Last administered on 08/21/16 09:15; Admin Dose 20 MG; Start 08/20/16 at 21:00 Hydralazine HCl (Apresoline) 50 mg Q8 PO Last administered on 08/20/16 21:32; Admin Dose 50 MG; Start 08/20/16 at 22:00 Salmeterol Xinafoate/ Fluticasone (Advair 250/50 Diskus) 1 inh BID INH Last administered on 08/21/16 09:16; Admin Dose 1 INH; Start 08/20/16 at 21:00 Miscellaneous Information 1 ea NOTE XX ; Start 08/20/16 at 16:30 Glucose (Glutose) 15 gm Q15M PRN PO DECREASED GLUCOSE; Start 08/20/16 at 16:30 Glucose (Glutose) 22.5 gm Q15M PRN PO DECREASED GLUCOSE; Start 08/20/16 at 16:30 Dextrose (D50w Syringe) 25 ml Q15M PRN IV DECREASED GLUCOSE; Start 08/20/16 at 16:30 Dextrose (D50w Syringe) 50 ml Q15M PRN IV DECREASED GLUCOSE; Start 08/20/16 at 16:30 Glucagon (Glucagen) 1 mg Q15M PRN IM DECREASED GLUCOSE; Start 08/20/16 at 16:30 Glucose (Glutose) 15 gm Q15M PRN BUCCAL DECREASED GLUCOSE; Start 08/20/16 at 16: 30 Prasugrel (Effient) 10 mg DAILY PO Last administered on 08/21/16 09:15; Admin Dose 10 MG; Start 08/20/16 at 17:30 Atorvastatin Calcium (Lipitor) 40 mg QHS PO Last administered on 08/20/16 21:31 ; Admin Dose 40 MG; Start 08/20/16 at 21:00 Metoprolol Tartrate (Lopressor) 25 mg BID PO Last administered on 08/21/16 09: 16; Admin Dose 25 MG; Start 08/20/16 at 21:00 LUBNA TAVARES MD Aug 21, 2016 13:07
--- NOTE | 2016-08-21 13:08 | CONS ---
Date/Time of Note Date/Time of Note DATE: 08/21/16 TIME: 13:06 Assessment/Plan Assessment/Plan Additional Assessment/Plan Acute kidney injury Non-ST elevation GA CAD with history of PCI COPD exacerbation Chronic respiratory failure Diabetes -Renal function improving, troponins are trending down. Patient denies any chest pain and shortness of breath has improved. Echocardiogram pending. Continue aspirin, Effient, statin, beta lory and heparin. 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 Fox and awaiting his response. Consultation Date/Type/Reason Admit Date/Time Aug 20, 2016 at 14:25 Initial Consult Date Type of Consultation: cv 24 HR Interval Summary Free Text/Dictation Patient denies chest pain, shortness of breath has improved significantly. Cough is still present but improving Exam/Review of Systems Vital Signs Vitals Vital Signs Date Time Temp Pulse Resp B/P Pulse Ox O2 Delivery O2 Flow Rate FiO2 08/21/16 12:06 89 08/21/16 11:44 97.7 18 108/65 91 08/21/16 07:35 3.0 08/20/16 18:05 Mask Intake and Output 08/20/16 08/20/16 08/21/16 15:00 23:00 07:00 Intake Total 530 ml Output Total 600 ml Balance -70 ml Exam No apparent distress Constitutional: alert, oriented Neck: supple Respiratory: other (course breath sounds bilaterally, minimal end expiratory wheezing) Cardiovascular: other (S1 and S2), regular rate and rhythm Gastrointestinal: bowel sounds, non-tender, soft Extremities: edema (trace) Results Result Diagram: 08/21/16 0640 08/21/16 0640 Results 24 hrs Laboratory Tests Test 08/20/16 15:30 08/20/16 17:15 08/20/16 19:39 08/20/16 21:42 Activated Partial Thromboplast Time 40.7 H INR International Normalized Ratio 0.87 Prothrombin Time 11.8 L Prothrombin Time Ratio 0.9 Creatine Kinase 420 H 385 H Creatine Kinase Index 0.5 0.4 Creatinine Kinase MB (Mass) 2.01 1.72 Troponin I 2.290 *H 1.980 *H Bedside Glucose 165 Test 08/20/16 22:00 08/21/16 06:40 08/21/16 09:12 08/21/16 12:04 Urine Amorphous Urates MANY Urine Bacteria MODERATE Urine Bilirubin NEGATIVE Urine Clarity CLOUDY H Urine Coarse Granular Casts MODERATE Urine Color LT. YELLOW Urine Eosinophils % 0.0 Urine Glucose NEGATIVE Urine Hemoglobin 1+ H Urine Ketones NEGATIVE Urine Leukocyte Esterase NEGATIVE Urine Microscopic RBC 2-5 Urine Microscopic WBC 2-5 Urine Nitrite NEGATIVE Urine Random Creatinine 106.93 Urine Random Sodium 54 Urine Specific [place] 1.025 Urine Total Protein Urine Transitional Epithelial Cells MODERATE Urine Urobilinogen 0.2 E.U./dL Urine pH 5.5 Activated Partial Thromboplast Time 104.1 *H Anion Gap 21 #H Basophils # 0.0 Basophils % 0.5 Blood Morphology Comment Blood Urea Nitrogen 66 H Calcium Level 8.5 Carbon Dioxide Level 26 Chloride Level 94 L Creatine Kinase 230 #H Creatinine 2.37 #H Eosinophils # 0.1 Eosinophils % 0.9 Glucose Level 125 # Hematocrit 38.9 L Hemoglobin 13.0 L Hemoglobin A1c 7.1 H Lymphocytes # 0.4 L Lymphocytes % 5.6 L Mean Corpuscular Hemoglobin 30.7 Mean Corpuscular Hemoglobin Concent 33.4 Mean Corpuscular Volume 91.7 Mean Platelet Volume 9.4 Monocytes # 0.8 Monocytes % 10.6 Neutrophils # 6.5 Neutrophils % 82.4 H Nucleated Red Blood Cells # 0.0 Nucleated Red Blood Cells % 0.0 Platelet Count 159 Potassium Level 3.6 Red Blood Count 4.24 L Red Cell Distribution Width 15.9 H Sodium Level 137 Uric Acid 10.8 H White Blood Count 7.9 # Bedside Glucose 130 127 Medications Medications Current Medications Sodium Chloride (NS) 1,000 ml @ 50 mls/hr Q20H IV Last administered on 21:52; Admin Dose 50 MLS/HR; Start 08/21/16 at 00:00 Lorazepam (Ativan) 0.5 mg Q6H PRN IV ANXIETY; Start 08/20/16 at 15:30 Ondansetron HCl (Zofran Inj) 4 mg Q6H PRN IV NAUSEA AND/OR VOMITING; Start 08/20 at 15:30 Aspirin (Aspirin) 81 mg DAILY PO Last administered on 08/21/16 09:15; Admin Dose 81 MG; Start 08/21/16 at 09:00 Nitroglycerin (Nitroglycerin (Sl Tab) 0.4 Mg) 1 tab Q5M PRN SL CHEST PAIN; Start 08/20/16 at 15:30 Acetaminophen (Tylenol Tab) 650 mg Q6H PRN PO PAIN LEVEL 1-3 OR FEVER; Start at 15:30 Morphine Sulfate (morphine) 2 mg Q4H PRN IV PAIN LEVEL 7-10 Last administered on 08/20/16 22:03; Admin Dose 2 MG; Start 08/20/16 at 15:30 Docusate Sodium (Colace) 100 mg Q12H PRN PO CONSTIPATION; Start 08/20/16 at 15: 30 Famotidine (Pepcid Iv) 20 mg DAILY IV Last administered on 08/21/16 09:15; Admin Dose 20 MG; Start 08/20/16 at 21:00 Hydralazine HCl (Apresoline) 50 mg Q8 PO Last administered on 08/20/16 21:32; Admin Dose 50 MG; Start 08/20/16 at 22:00 Salmeterol Xinafoate/ Fluticasone (Advair 250/50 Diskus) 1 inh BID INH Last administered on 08/21/16 09:16; Admin Dose 1 INH; Start 08/20/16 at 21:00 Miscellaneous Information 1 ea NOTE XX ; Start 08/20/16 at 16:30 Glucose (Glutose) 15 gm Q15M PRN PO DECREASED GLUCOSE; Start 08/20/16 at 16:30 Glucose (Glutose) 22.5 gm Q15M PRN PO DECREASED GLUCOSE; Start 08/20/16 at 16:30 Dextrose (D50w Syringe) 25 ml Q15M PRN IV DECREASED GLUCOSE; Start 08/20/16 at 16:30 Dextrose (D50w Syringe) 50 ml Q15M PRN IV DECREASED GLUCOSE; Start 08/20/16 at 16:30 Glucagon (Glucagen) 1 mg Q15M PRN IM DECREASED GLUCOSE; Start 08/20/16 at 16:30 Glucose (Glutose) 15 gm Q15M PRN BUCCAL DECREASED GLUCOSE; Start 08/20/16 at 16: 30 Prasugrel (Effient) 10 mg DAILY PO Last administered on 08/21/16 09:15; Admin Dose 10 MG; Start 08/20/16 at 17:30 Atorvastatin Calcium (Lipitor) 40 mg QHS PO Last administered on 08/20/16 21:31 ; Admin Dose 40 MG; Start 08/20/16 at 21:00 Metoprolol Tartrate (Lopressor) 25 mg BID PO Last administered on 08/21/16 09: 16; Admin Dose 25 MG; Start 08/20/16 at 21:00 Eddie Gutierrez DO Aug 21, 2016 13:08
[2016-08-21] MEDS: morphine 2 MG INJ IV PRN (15:50)
[2016-08-21] MEDS ORDERED: ALBUTEROL/IPRATROPIUM (NEB) 3 ML AMP HHN SCH (16:00)
[2016-08-21] MEDS: SOD CHLORIDE 0.9% 1,000 ML IV SCH (16:01)
--- NOTE | 2016-08-21 16:23 | CONS ---
DATE OF ADMISSION: 08/20/2016 DATE OF CONSULTATION: PULMONARY CONSULTATION REASON FOR CONSULTATION: Shortness of breath. Thank you, Dr. Bashir, for this consultation. HISTORY OF PRESENT ILLNESS: This is a pleasant 71-year-old gentleman with extensive remote tobacco history, came in with a several-day history of increasing shortness of breath, orthopnea, PND. Unde rwent a V/Q scan which showed low probability of pulmonary embolism. He did have elevated D-dimer. In addition, past medical history is complicated by diastolic dysfunction and chronic kidney diseas e which made CT angiogram contraindicated. Denied any fever or chills. He had occasional cough. N o hemoptysis or hematemesis. No nausea, no vomiting, no recent travel history. 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 MEDICATIONS: Per chart. ALLERGIES: NONE KNOWN. SOCIAL HISTORY: Nonsmoker, no alcohol, no history of drug use. FAMILY HISTORY: Noncontributory. SYSTEMS REVIEW: A 12-point review of systems was negative other than that mentioned above. PHYSICAL EXAMINATION: GENERAL: Well-nourished, well-developed gentleman, comfortable at rest, in no acute distress. VITAL SIGNS: Currently afebrile, pulse is 100, blood pressure 108/65, O2 saturation 96% on 3 L nasa l cannula. NECK: Supple. No JVD or lymphadenopathy. CARDIAC: S1, S2, no added sounds or murmurs. CHEST: Diminished air entry bilaterally. No rales or wheezes. ABDOMEN: Soft, nontender. No guarding or rebound. EXTREMITIES: No cyanosis, clubbing, edema. NEUROLOGIC: Generalized weakness, but no focal deficits. LABORATORY DATA: BUN 66, creatinine 2.37. INR was 0.87. White count 7.9, hemoglobin 13. DIAGNOSTIC DATA: Chest x-ray: No significant infiltrates or effusions. V/Q scan was low probabili ty. Lower extremity Dopplers unremarkable for deep vein thrombosis. Renal ultrasound showed a 7 mm nonobstructing left renal calculus. IMPRESSION AND PLAN: 1. Dyspnea, likely secondary to diastolic dysfunction and volume overload. 2. Possible component of acute on chronic bronchitis, although no bronchospasm today. 3. Hypoxemia secondary to above. 4. Chronic kidney disease. 5. History of essential hypertension. PLAN: 1. Agree with gentle diuresis. 2. Arterial blood gas on room air in the a.m. 3. Probable home O2 evaluation. 4. Outpatient pulmonary function testing. 5. Outpatient bronchodilator treatment. Dictated By: ALISA TAYLOR/JOVANNY Conf#: [id number] DID#: [id number]
[2016-08-21] MEDS ORDERED: LEVALBUTEROL (NEB) 0.63 MG/3 ML AMP HHN PRN (18:00)
[2016-08-21] MEDS ORDERED: IPRATROPIUM (NEB) 0.5 MG/2.5 ML AMP HHN PRN (18:00)
[2016-08-21 18:47] LABS: AADO2 Arterial 34.9 mmHg (7.0-24.0); Allen Test ACCEPTAB; Arterial Base Excess -1.7 mmol/L (-3.0-3); Arterial COHb 0.6 % (0.0-3.0); Arterial Fraction of Oxyhgb 92.3 % (93.0-99.0); Arterial HCO3 21.2 mmol/L (22.0-26.0); Arterial MetHb 0.5 % (0.0-1.5); Arterial Total Hemglobin 14.5 g/dl (12.0-18.0); MODE ROOM AIR
[2016-08-21] MEDS: HEPARIN 25000 UNITS/250 ML 250 ML IV SCH (19:46)
[2016-08-21] MEDS ORDERED: IPRATROPIUM (NEB) 0.5 MG/2.5 ML AMP HHN SCH (20:00)
[2016-08-21] MEDS ORDERED: LEVALBUTEROL (NEB) 0.63 MG/3 ML AMP HHN SCH (20:00)
[2016-08-21] MEDS: ATORVASTATIN 40 MG TAB PO SCH (20:43)
[2016-08-21] MEDS: ALBUTEROL/IPRATROPIUM (NEB) 3 ML AMP HHN SCH (21:50)
--- NOTE | 2016-08-21 21:54 | RADRPT ---
Echocardiogram Report Patient Name: PRAVEENA ROMANO Gender: Male Date: 1945 Study Date: 21-Aug-2016 Depositing Machine Operator: Monica Koehler [facility] Location: [id number] Ref. Physician: GEOVANNI GUEVARA Quality: Good Procedures: Transthoracic echocardiogram with complete 2D, M-Mode, and doppler examination. Indications: NSTEMI. Pulmonary embolism. 2D/M Mode Doppler Measurement Value Normal Ranges Measurement Value Normal Ranges LVIDd 2D 4.3 3.5 - 5.6 cm AV Peak Jaya 1.6 m/sec LVIDs 2D 2.1 2.1 - 4.1 cm AV Peak PG 9.9 mmHg LVPWd 2D 0.7 0.6 - 1.1 cm LVOT Peak Jaya 1.1 m/sec IVSd 2D 0.9 0.6 - 1.1 cm LVOT Peak PG 5.1 mmHg AoR Diam 2D 2.4 2.0 - 3.7 cm MV E Peak Jaya 0.6 m/sec EDV 2D 84.4 cm3 MV A Peak Jaya 1.2 m/sec ESV 2D 9.6 cm3 MV E/A 0.5 LA Dimen 2D 3.2 2.3 - 4.0 cm MV Decel Time 171 msec MV Decel [place] 3 MV E/A 0.5 TR Peak Jaya 3.5 m/sec TR Peak PG 49.2 mmHg RVSP 52.0 mmHg Findings Left Ventricle: Normal left ventricular systolic function. Normal left ventricular cavity size. Normal left ventricular wall thickness. Ejection fraction is visually estimated at 65 %. Tissue Doppler/Mitral Doppler indices are consistent with impaired relaxation (Stage I diastolic dysfunction). These segments of the LV are hypokinetic inferolateral mid segment and inferolateral base. Right Ventricle: Moderate enlargement of right ventricle. Mild right ventricular hypokinesis. Flattened septum in systole consistent with RV pressure overload. Left Atrium: The left atrium is normal in size. Right Atrium: There is mild enlargement of right atrium. Mitral Valve: Mitral valve leaflets appear mildly thickened. Trace mitral regurgitation. Aortic Valve: No significant aortic stenosis or insufficiency. Aortic cusps appear mildly calcified. Tricuspid Valve: Normal appearance of the tricuspid valve. Estimated peak PA systolic pressure 52 mmHg. There is mild tricuspid regurgitation. Pulmonic Valve: Normal pulmonic valve appearance. There is trace pulmonic regurgitation. Pericardium: Normal pericardium with no significant pericardial effusion. Aorta: Normal aortic root. IVC: Normal size and normal respiratory collapse consistent with normal right atrial pressure. Conclusions Normal left ventricular systolic function. Normal left ventricular cavity size. Normal left ventricular wall thickness. Ejection fraction is visually estimated at 65 %. Tissue Doppler/Mitral Doppler indices are consistent with impaired relaxation (Stage I diastolic dysfunction). These segments of the LV are hypokinetic infero-lateral mid segment. and infero-lateral base. Moderate enlargement of right ventricle. Mild right ventricular hypokinesis. Flattened septum in systole consistent with RV pressure overload. The left atrium is normal in size. There is mild enlargement of right atrium. Estimated peak PA systolic pressure 52 mmHg. There is mild tricuspid regurgitation. No significant valvular stenosis or regurgitation seen of remaining visualized valves. Normal pericardium with no significant pericardial effusion. Electronically Signed By: Eddie Gutierrez 21-Aug-2016 21:54:20 -0800 Patient Name: PRAVEENA ROMANO Study Date: 21-Aug-2016 [id number]
[2016-08-22] VITALS (12 sets, daily range): BP systolic 117–128; BP diastolic 63–73; PULSE 85–112; RESP 19–21
[2016-08-22] MEDS: ALBUTEROL/IPRATROPIUM (NEB) 3 ML AMP HHN SCH ×4 (02:12→19:53)
[2016-08-22] MEDS: HEPARIN 25000 UNITS/250 ML 250 ML IV SCH ×3 (03:34→21:46)
[2016-08-22] MEDS: FUROSEMIDE 20 MG INJ IV SCH ×2 (05:40→17:09)
[2016-08-22 07:03] LABS: INR 0.96; PROTIME 12.8 Sec (12.2-14.2)
[2016-08-22 07:08] LABS: BASOPHILS % 0.4 % (0.0-2.0); EOSINOPHILS # 0.1 10^3/ul (0.0-0.5); EOSINOPHILS % 1.6 % (0.0-7.0); HEMATOCRIT 37.8 % (42.0-52.0); LYMPHOCYTES # 0.5 10^3/ul (0.8-2.9); LYMPHOCYTES % 6.2 % (15.0-51.0); MEAN CORPUSCULAR HEMOGLOBIN 30.9 pg (29.0-33.0); MEAN CORPUSCULAR HGB CONC 34.4 g/dl (32.0-37.0); MEAN CORPUSCULAR VOLUME 89.8 fl (82.0-101.0); MEAN PLATELET VOLUME 9.6 fl (7.4-10.4); MONOCYTES % 12.8 % (0.0-11.0); NEUTROPHIL # 5.9 10^3/ul (1.6-7.5); PLATELET COUNT 158 10^3/UL (140-440); RED BLOOD COUNT 4.22 10^6/ul (4.70-6.10); UNCORRECTED WBC 7.5 10^3/ul (4.8-10.8); WHITE BLOOD COUNT 7.5 10^3/ul (4.8-10.8)
[2016-08-22 07:22] LABS: CONDITION 1; LH ANALYZER COMMENTS 1
[2016-08-22 07:35] LABS: ALBUMIN 3.5 g/dl (3.3-4.9)
[2016-08-22 07:38] LABS: ALBUMIN/GLOBULIN RATIO 1.16; BILIRUBIN,INDIRECT 0.6 mg/dl (0-1.1); BILIRUBIN,TOTAL 0.6 mg/dl (0.2-1.3); CALCIUM 8.5 mg/dl (8.4-10.2); CREATININE 1.48 mg/dl (0.61-1.24); TOTAL PROTEIN 6.5 g/dl (6.1-8.1)
[2016-08-22 07:39] LABS: POTASSIUM 2.8 mmol/L (3.5-5.1)
[2016-08-22 07:40] LABS: PARTIAL THROMBOPLASTIN TIME 83.3 Sec (25.0-35.0)
[2016-08-22] MEDS: INSULIN ASPART [NOVOLOG] 3 ML PEN SC SCH ×6 (08:32→20:25)
[2016-08-22] MEDS ORDERED: POTASSIUM CHLORIDE (SR) 20 MEQ TAB PO SCH (09:00)
[2016-08-22 09:39] LABS: AADO2 Arterial 98.5 mmHg (7.0-24.0); Allen Test ACCEPTAB; Arterial Base Excess 0.2 mmol/L (-3.0-3); Arterial COHb 0.7 % (0.0-3.0); Arterial Fraction of Oxyhgb 88.1 % (93.0-99.0); Arterial HCO3 22.9 mmol/L (22.0-26.0); Arterial MetHb 0.2 % (0.0-1.5); Arterial Total Hemglobin 14.4 g/dl (12.0-18.0); MODE NASAL CANNULA
[2016-08-22] MEDS: ASPIRIN 81 MG TAB PO SCH (10:01)
[2016-08-22] MEDS: PRASUGREL HYDROCHLORIDE 10 MG TABLET PO SCH (10:01)
[2016-08-22] MEDS: METOPROLOL 25 MG TAB PO SCH ×2 (10:02→20:26)
[2016-08-22] MEDS: FAMOTIDINE 20 MG INJ IV SCH (10:02)
[2016-08-22] MEDS: SALMETEROL/FLUTICASONE 250/50 INHA INH SCH ×2 (10:03→20:27)
--- NOTE | 2016-08-22 10:49 | PN ---
Date/Time of Note Date/Time of Note DATE: 08/22/16 TIME: 10:45 Assessment/Plan VTE Prophylaxis VTE Prophylaxis Intervention: heparin Lines/Catheters IV Catheter Type (from Nrs): Peripheral IV Urinary Cath still in place: Yes Reason Cath still needed: urinary retention Assessment/Plan Assessment/Plan 71 yo male with past medical history of COPD, Essential Hypertension, Smoking abuse, Type II DM, CAD s/p PCI who presents with shortness of breath and lightheadedness. 1. Acute hypoxemic respiratory failure - 2/2 ACS vs PE - PE less likely, ECHO EF 65% with stage I diastolic dysfunction, c/w pulm recs, supplemental O2, 2. NSTEMI - will continue with heparin drip, see #1 3. CHF diastolic dysfunction - acute on chronic - continue with lasix, elevated BNP, gentle diuresis 4. Acute Renal Failure - 2/2 to ATN - will consult nephrology, IVF, renally adjust medications, avoid nephrotoxins - improving 5. Essential Hypertension - continue with BB, HCTZ, lisinopril 6. Type II DM - hgba1c 7.1, ISS 7. CAD s/p PCI - see #1 8. COPD - see #1, continue with nebulizers and symbicort 9. GI ppx - pepcid 10. DVT ppx - heparin gtt dispo - continue with current treatment, right shoulder xray - if stable, dc tomorrow? this progress note took greater than 30 minutes to complete Subjective 24 Hr Interval Summary Free Text/Dictation No overnight events. States that he is breathing better. spoke to him about the care plan. he is complaining of right shoulder pain, denies any direct trauma or injury. 15 minutes spent. Exam/Review of Systems Vital Signs Vitals Vital Signs Date Time Temp Pulse Resp B/P Pulse Ox O2 Delivery O2 Flow Rate FiO2 08/22/16 08:36 2.0 08/22/16 08:35 76 20 Nasal Cannula 08/22/16 08:22 98.1 123/71 90 08/22/16 02:13 100 Intake and Output 08/21/16 08/21/16 08/22/16 15:00 23:00 07:00 Intake Total 1200 ml Output Total 1200 ml Balance 0 ml Exam Gen Aguila: mild respiratory distress, AAOx4, obese male HEENT: NC/AT, PERRLA, EOMI, no pharyngeal erythema, no tonsillar exudates, no lymphadenopathy, no JVD, no carotid bruits NECK: supple, no thyromegaly THORAX: symmetrical, no obvious deformities CV: S1S2, RRR, no M/G/R Lungs: coarse breath sounds, with diminished breath sounds to the bases bilaterally, no overt wheezing or crackles appreciated- improving aeration Abd: soft, NT/ND, +BS, no rebound, no guarding, neg HSM, protuberant EXT: trace bilateral lower extremity edema, no ecchymosis, no clubbing, FROM MSK: decreased range of motion on right shoulder, pain with passive elevation Neuro: CN II-XII grossly intact, no focal deficits Psych: fair mood and affect Skin: C/D/I Results Result Diagram: 08/22/16 0555 08/22/16 0555 Results 24 hrs Laboratory Tests Test 08/21/16 12:04 08/21/16 16:44 08/21/16 17:42 08/21/16 18:00 Bedside Glucose 127 270 H Activated Partial Thromboplast Time 37.5 H Arterial Blood HCO3 21.2 L Arterial Blood Base Excess -1.7 Arterial Blood Oxygen Saturation 93.3 L Wan Test ACCEPTAB Arterial Blood Gas Puncture Site Left Radial Arterial Blood Carboxyhemoglobin 0.6 Arterial Blood Date Drawn 08/21/2016 6:30:59 PM Arterial Blood Methemoglobin 0.5 Arterial Blood pCO2 (Temp correct) 30.9 L Arterial Blood pH (Temp corrected) 7.454 H Arterial Blood pO2 (Temp corrected) 69.4 L Blood Gas A-a O2 Differential 34.9 H Blood Gas Actual Respiration Rate 18 Blood Gas Modality ROOM AIR Blood Gas Notified Time 08/21/2016 6:46:45 PM Blood Gas Notified Whom AC Blood Gas Specimen Source Blood arterial Blood Gas Temperature 37.0 FiO2 21.0 Oxyhemoglobin Percent 92.3 L Total Hemoglobin 14.5 Test 08/21/16 20:43 08/22/16 01:33 08/22/16 05:55 08/22/16 07:00 Bedside Glucose 143 Activated Partial Thromboplast Time 126.7 *H 83.3 *H Alanine Aminotransferase (ALT/SGPT) 80 H Albumin 3.5 Albumin/Globulin Ratio 1.16 Alkaline Phosphatase 163 H Anion Gap 18 H Aspartate Amino Transf (AST/SGOT) 95 H Basophils # 0.0 Basophils % 0.4 Blood Morphology Comment Blood Urea Nitrogen 56 H Calcium Level 8.5 Carbon Dioxide Level 24 Chloride Level 95 L Creatinine 1.48 H Direct Bilirubin 0.00 Eosinophils # 0.1 Eosinophils % 1.6 Globulin 3.00 Glucose Level 145 Hematocrit 37.8 L Hemoglobin 13.0 L INR International Normalized Ratio 0.96 Indirect Bilirubin 0.6 Lymphocytes # 0.5 L Lymphocytes % 6.2 L Magnesium Level 1.5 L Mean Corpuscular Hemoglobin 30.9 Mean Corpuscular Hemoglobin Concent 34.4 Mean Corpuscular Volume 89.8 Mean Platelet Volume 9.6 Monocytes # 1.0 H Monocytes % 12.8 H Neutrophils # 5.9 Neutrophils % 79.0 H Nucleated Red Blood Cells # 0.0 Nucleated Red Blood Cells % 0.0 Platelet Count 158 Potassium Level 2.8 *L Prothrombin Time 12.8 Prothrombin Time Ratio 1.0 Red Blood Count 4.22 L Red Cell Distribution Width 16.0 H Sodium Level 134 L Total Bilirubin 0.6 Total Protein 6.5 # White Blood Count 7.5 Arterial Blood HCO3 22.9 Arterial Blood Base Excess 0.2 Arterial Blood Oxygen Saturation 88.9 L Wan Test ACCEPTAB Arterial Blood Gas Puncture Site Right Radial Arterial Blood Carboxyhemoglobin 0.7 Arterial Blood Date Drawn 08/22/2016 9:20:48 AM Arterial Blood Methemoglobin 0.2 Arterial Blood pCO2 (Temp correct) 32.0 L Arterial Blood pH (Temp corrected) 7.473 H Arterial Blood pO2 (Temp corrected) 56.2 L Blood Gas A-a O2 Differential 98.5 H Blood Gas Modality NASAL CANNULA Blood Gas Notified Time 08/22/2016 9:38:59 AM Blood Gas Notified Whom JLD Blood Gas Specimen Source Blood arterial Blood Gas Temperature 37.0 FiO2 27.0 Oxyhemoglobin Percent 88.1 L Total Hemoglobin 14.4 Test 08/22/16 08:17 Bedside Glucose 221 H Medications Medications Current Medications Sodium Chloride (NS) 1,000 ml @ 50 mls/hr Q20H IV Last administered on t 16:01; Admin Dose 50 MLS/HR; Start 08/21/16 at 00:00 Lorazepam (Ativan) 0.5 mg Q6H PRN IV ANXIETY; Start 08/20/16 at 15:30 Ondansetron HCl (Zofran Inj) 4 mg Q6H PRN IV NAUSEA AND/OR VOMITING; Start 08/20 at 15:30 Aspirin (Aspirin) 81 mg DAILY PO Last administered on 08/22/16 10:01; Admin Dose 81 MG; Start 08/21/16 at 09:00 Nitroglycerin (Nitroglycerin (Sl Tab) 0.4 Mg) 1 tab Q5M PRN SL CHEST PAIN; Start 08/20/16 at 15:30 Acetaminophen (Tylenol Tab) 650 mg Q6H PRN PO PAIN LEVEL 1-3 OR FEVER; Start at 15:30 Morphine Sulfate (morphine) 2 mg Q4H PRN IV PAIN LEVEL 7-10 Last administered on 08/21/16 15:50; Admin Dose 2 MG; Start 08/20/16 at 15:30 Docusate Sodium (Colace) 100 mg Q12H PRN PO CONSTIPATION; Start 08/20/16 at 15: 30 Famotidine (Pepcid Iv) 20 mg DAILY IV Last administered on 08/22/16 10:02; Admin Dose 20 MG; Start 08/20/16 at 21:00 Hydralazine HCl (Apresoline) 50 mg Q8 PO Last administered on 08/22/16 05:39; Admin Dose 50 MG; Start 08/20/16 at 22:00 Salmeterol Xinafoate/ Fluticasone (Advair 250/50 Diskus) 1 inh BID INH Last administered on 08/22/16 10:03; Admin Dose 1 INH; Start 08/20/16 at 21:00 Miscellaneous Information 1 ea NOTE XX ; Start 08/20/16 at 16:30 Glucose (Glutose) 15 gm Q15M PRN PO DECREASED GLUCOSE; Start 08/20/16 at 16:30 Glucose (Glutose) 22.5 gm Q15M PRN PO DECREASED GLUCOSE; Start 08/20/16 at 16:30 Dextrose (D50w Syringe) 25 ml Q15M PRN IV DECREASED GLUCOSE; Start 08/20/16 at 16:30 Dextrose (D50w Syringe) 50 ml Q15M PRN IV DECREASED GLUCOSE; Start 08/20/16 at 16:30 Glucagon (Glucagen) 1 mg Q15M PRN IM DECREASED GLUCOSE; Start 08/20/16 at 16:30 Glucose (Glutose) 15 gm Q15M PRN BUCCAL DECREASED GLUCOSE; Start 08/20/16 at 16: 30 Prasugrel (Effient) 10 mg DAILY PO Last administered on 08/22/16 10:01; Admin Dose 10 MG; Start 08/20/16 at 17:30 Atorvastatin Calcium (Lipitor) 40 mg QHS PO Last administered on 08/21/16 20:43 ; Admin Dose 40 MG; Start 08/20/16 at 21:00 Metoprolol Tartrate (Lopressor) 25 mg BID PO Last administered on 08/22/16 10: 02; Admin Dose 25 MG; Start 08/20/16 at 21:00 Potassium Chloride 40 meq 40 meq BID PO Last administered on 08/22/16 10:01; Admin Dose 40 MEQ; Start 08/22/16 at 09:00; Stop 08/22/16 at 17:00 Magnesium Sulfate/ Sodium Chloride (Magnesium Sulfate/NS) 106 ml @ 35.333 mls/ hr ONCE ONCE IVPB ; Start 08/22/16 at 12:00; Stop 08/22/16 at 14:59 Procedures Procedures ECHO Conclusions Normal left ventricular systolic function. Normal left ventricular cavity size. Normal left ventricular wall thickness. Ejection fraction is visually estimated at 65 %. Tissue Doppler/Mitral Doppler indices are consistent with impaired relaxation (Stage I diastolic dysfunction). These segments of the LV are hypokinetic infero-lateral mid segment. and infero-lateral base. Moderate enlargement of right ventricle. Mild right ventricular hypokinesis. Flattened septum in systole consistent with RV pressure overload. The left atrium is normal in size. There is mild enlargement of right atrium. Estimated peak PA systolic pressure 52 mmHg. There is mild tricuspid regurgitation. No significant valvular stenosis or regurgitation seen of remaining visualized valves. Normal pericardium with no significant pericardial effusion. GEOVANNI GUEVARA MD Aug 22, 2016 10:49
[2016-08-22] MEDS ORDERED: MAGNESIUM SULFATE 3 GM in SOD CHLORIDE 0.9% 100 ML IVPB ONE (12:00)
[2016-08-22] MEDS: SOD CHLORIDE 0.9% 1,000 ML IV SCH (12:21)
--- NOTE | 2016-08-22 12:49 | CONS ---
Date/Time of Note Date/Time of Note DATE: 08/22/16 TIME: 12:48 Consult Date/Type/Reason Admit Date/Time Aug 20, 2016 at 14:25 Initial Consult Date Type of Consultation: pulmonary Ordering Provider: JOAO ALBERTS MD Subjective Patient stable no new events breathing improved today Objective Vital Signs Date Time Temp Pulse Resp B/P Pulse Ox O2 Delivery O2 Flow Rate FiO2 08/22/16 08:36 2.0 08/22/16 08:35 76 20 Nasal Cannula 08/22/16 08:22 98.1 123/71 90 08/22/16 02:13 100 Intake and Output 08/21/16 08/21/16 08/22/16 15:00 23:00 07:00 Intake Total 1200 ml Output Total 1200 ml Balance 0 ml PHYSICAL EXAMINATION: GENERAL: Well-nourished, well-developed gentleman, comfortable at rest, in no acute distress. VITAL SIGNS: As above NECK: Supple. No JVD or lymphadenopathy. CARDIAC: S1, S2, no added sounds or murmurs. CHEST: Diminished air entry bilaterally. No rales or wheezes. ABDOMEN: Soft, nontender. No guarding or rebound. EXTREMITIES: No cyanosis, clubbing, edema. NEUROLOGIC: Generalized weakness, but no focal deficits. Results/Medications Result Diagram: 08/22/16 0555 08/22/16 0555 Results 24 hrs Laboratory Tests Test 08/21/16 16:44 08/21/16 17:42 08/21/16 18:00 08/21/16 20:43 Activated Partial Thromboplast Time 37.5 H Bedside Glucose 270 H 143 Arterial Blood HCO3 21.2 L Arterial Blood Base Excess -1.7 Arterial Blood Oxygen Saturation 93.3 L Wan Test ACCEPTAB Arterial Blood Gas Puncture Site Left Radial Arterial Blood Carboxyhemoglobin 0.6 Arterial Blood Date Drawn 08/21/2016 6:30:59 PM Arterial Blood Methemoglobin 0.5 Arterial Blood pCO2 (Temp correct) 30.9 L Arterial Blood pH (Temp corrected) 7.454 H Arterial Blood pO2 (Temp corrected) 69.4 L Blood Gas A-a O2 Differential 34.9 H Blood Gas Actual Respiration Rate 18 Blood Gas Modality ROOM AIR Blood Gas Notified Time 08/21/2016 6:46:45 PM Blood Gas Notified Whom AC Blood Gas Specimen Source Blood arterial Blood Gas Temperature 37.0 FiO2 21.0 Oxyhemoglobin Percent 92.3 L Total Hemoglobin 14.5 Test 08/22/16 01:33 08/22/16 05:55 08/22/16 07:00 08/22/16 08:17 Activated Partial Thromboplast Time 126.7 *H 83.3 *H Alanine Aminotransferase (ALT/SGPT) 80 H Albumin 3.5 Albumin/Globulin Ratio 1.16 Alkaline Phosphatase 163 H Anion Gap 18 H Aspartate Amino Transf (AST/SGOT) 95 H Basophils # 0.0 Basophils % 0.4 Blood Morphology Comment Blood Urea Nitrogen 56 H Calcium Level 8.5 Carbon Dioxide Level 24 Chloride Level 95 L Creatinine 1.48 H Direct Bilirubin 0.00 Eosinophils # 0.1 Eosinophils % 1.6 Globulin 3.00 Glucose Level 145 Hematocrit 37.8 L Hemoglobin 13.0 L INR International Normalized Ratio 0.96 Indirect Bilirubin 0.6 Lymphocytes # 0.5 L Lymphocytes % 6.2 L Magnesium Level 1.5 L Mean Corpuscular Hemoglobin 30.9 Mean Corpuscular Hemoglobin Concent 34.4 Mean Corpuscular Volume 89.8 Mean Platelet Volume 9.6 Monocytes # 1.0 H Monocytes % 12.8 H Neutrophils # 5.9 Neutrophils % 79.0 H Nucleated Red Blood Cells # 0.0 Nucleated Red Blood Cells % 0.0 Platelet Count 158 Potassium Level 2.8 *L Prothrombin Time 12.8 Prothrombin Time Ratio 1.0 Red Blood Count 4.22 L Red Cell Distribution Width 16.0 H Sodium Level 134 L Total Bilirubin 0.6 Total Protein 6.5 # White Blood Count 7.5 Arterial Blood HCO3 22.9 Arterial Blood Base Excess 0.2 Arterial Blood Oxygen Saturation 88.9 L Wan Test ACCEPTAB Arterial Blood Gas Puncture Site Right Radial Arterial Blood Carboxyhemoglobin 0.7 Arterial Blood Date Drawn 08/22/2016 9:20:48 AM Arterial Blood Methemoglobin 0.2 Arterial Blood pCO2 (Temp correct) 32.0 L Arterial Blood pH (Temp corrected) 7.473 H Arterial Blood pO2 (Temp corrected) 56.2 L Blood Gas A-a O2 Differential 98.5 H Blood Gas Modality NASAL CANNULA Blood Gas Notified Time 08/22/2016 9:38:59 AM Blood Gas Notified Whom JLD Blood Gas Specimen Source Blood arterial Blood Gas Temperature 37.0 FiO2 27.0 Oxyhemoglobin Percent 88.1 L Total Hemoglobin 14.4 Bedside Glucose 221 H Medications Current Medications Sodium Chloride (NS) 1,000 ml @ 50 mls/hr Q20H IV Last administered on 12:21; Admin Dose 50 MLS/HR; Start 08/21/16 at 00:00 Lorazepam (Ativan) 0.5 mg Q6H PRN IV ANXIETY; Start 08/20/16 at 15:30 Ondansetron HCl (Zofran Inj) 4 mg Q6H PRN IV NAUSEA AND/OR VOMITING; Start 08/20 at 15:30 Aspirin (Aspirin) 81 mg DAILY PO Last administered on 08/22/16 10:01; Admin Dose 81 MG; Start 08/21/16 at 09:00 Nitroglycerin (Nitroglycerin (Sl Tab) 0.4 Mg) 1 tab Q5M PRN SL CHEST PAIN; Start 08/20/16 at 15:30 Acetaminophen (Tylenol Tab) 650 mg Q6H PRN PO PAIN LEVEL 1-3 OR FEVER; Start at 15:30 Morphine Sulfate (morphine) 2 mg Q4H PRN IV PAIN LEVEL 7-10 Last administered on 08/21/16 15:50; Admin Dose 2 MG; Start 08/20/16 at 15:30 Docusate Sodium (Colace) 100 mg Q12H PRN PO CONSTIPATION; Start 08/20/16 at 15: 30 Famotidine (Pepcid Iv) 20 mg DAILY IV Last administered on 08/22/16 10:02; Admin Dose 20 MG; Start 08/20/16 at 21:00 Hydralazine HCl (Apresoline) 50 mg Q8 PO Last administered on 08/22/16 05:39; Admin Dose 50 MG; Start 08/20/16 at 22:00 Salmeterol Xinafoate/ Fluticasone (Advair 250/50 Diskus) 1 inh BID INH Last administered on 08/22/16 10:03; Admin Dose 1 INH; Start 08/20/16 at 21:00 Miscellaneous Information 1 ea NOTE XX ; Start 08/20/16 at 16:30 Glucose (Glutose) 15 gm Q15M PRN PO DECREASED GLUCOSE; Start 08/20/16 at 16:30 Glucose (Glutose) 22.5 gm Q15M PRN PO DECREASED GLUCOSE; Start 08/20/16 at 16:30 Dextrose (D50w Syringe) 25 ml Q15M PRN IV DECREASED GLUCOSE; Start 08/20/16 at 16:30 Dextrose (D50w Syringe) 50 ml Q15M PRN IV DECREASED GLUCOSE; Start 08/20/16 at 16:30 Glucagon (Glucagen) 1 mg Q15M PRN IM DECREASED GLUCOSE; Start 08/20/16 at 16:30 Glucose (Glutose) 15 gm Q15M PRN BUCCAL DECREASED GLUCOSE; Start 08/20/16 at 16: 30 Prasugrel (Effient) 10 mg DAILY PO Last administered on 08/22/16 10:01; Admin Dose 10 MG; Start 08/20/16 at 17:30 Atorvastatin Calcium (Lipitor) 40 mg QHS PO Last administered on 08/21/16 20:43 ; Admin Dose 40 MG; Start 08/20/16 at 21:00 Metoprolol Tartrate (Lopressor) 25 mg BID PO Last administered on 08/22/16 10: 02; Admin Dose 25 MG; Start 08/20/16 at 21:00 Potassium Chloride 40 meq 40 meq BID PO Last administered on 08/22/16 10:01; Admin Dose 40 MEQ; Start 08/22/16 at 09:00; Stop 08/22/16 at 17:00 Magnesium Sulfate/ Sodium Chloride (Magnesium Sulfate/NS) 106 ml @ 35.333 mls/ hr ONCE ONCE IVPB ; Start 08/22/16 at 12:00; Stop 08/22/16 at 14:59 Insulin Glargine (Lantus) 15 unit DAILY@20 SC ; Start 08/22/16 at 20:00 Assessment/Plan Chief Complaint/Hosp Course IMPRESSION AND PLAN: 1. Dyspnea, likely secondary to diastolic dysfunction and volume overload. 2. Possible component of acute on chronic bronchitis, although no bronchospasm today. 3. Hypoxemia secondary to above. 4. Chronic kidney disease. 5. History of essential hypertension. PLAN: 1. Continue diuretics 2. Arterial blood gas on room air 3. Probable home O2 evaluation. 4. Outpatient pulmonary function testing. 5. Outpatient bronchodilator treatment. 6. Replace potassium Consider discharge planning soon Problems: ALISA CHAVEZ MD, [facility] Aug 22, 2016 12:49
--- NOTE | 2016-08-22 12:55 | CONS ---
Date/Time of Note Date/Time of Note DATE: 08/22/16 TIME: 12:51 Assessment/Plan Assessment/Plan Additional Assessment/Plan 1. Acute hypoxic respiratory distress, likely secondary to congestive heart failure, diastoli 2. Elevated D-dimer. V/Q scan showed low probability of PE. 3. Acute kidney injury versus acute kidney injury on chronic kidney disease, unknown stage, secondary to cardiorenal syndrome. 4. 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 5. History of congestive heart failure. 6. History of chronic obstructive pulmonary disease. 7. Acute non-ST elevation myocardial infarction. 8. Left kidney Non obstructing renal stone PLAN: V/Q showed Low probability PE KCl 20meQ IV x 1 in addition to PO replacement good urine output, magnesium replacement, Cr improved to 1.5 US showed medical renal disease, left kidney non obstructinve renal stone continue Lasix 20mg IV BID Gaspar in place will tricia hernandez Consultation Date/Type/Reason Admit Date/Time Aug 20, 2016 at 14:25 Type of Consultation: NEPHROLOGY Referring Provider: JOAO ALBERTS MD 24 HR Interval Summary Free Text/Dictation K low, on IV lasix 20mg BID, Cr improved to 1.5 Exam/Review of Systems Vital Signs Vitals Vital Signs Date Time Temp Pulse Resp B/P Pulse Ox O2 Delivery O2 Flow Rate FiO2 08/22/16 08:36 2.0 08/22/16 08:35 76 20 Nasal Cannula 08/22/16 08:22 98.1 123/71 90 08/22/16 02:13 100 Intake and Output 08/21/16 08/21/16 08/22/16 14:59 22:59 06:59 Intake Total 1200 ml Output Total 1200 ml Balance 0 ml Exam HEART: S1, S2, tachycardia, no murmur. LUNGS: Bilateral basilar crackles present. No wheezing. ABDOMEN: Soft, nontender, nondistended. Bowel sounds are present. EXTREMITIES: No clubbing, cyanosis, edema. NEUROLOGICAL: Nonfocal, intact. PSYCHIATRIC: Appropriate affect and mood Results Result Diagram: 08/22/16 0555 08/22/16 0555 Results 24 hrs Laboratory Tests Test 08/21/16 16:44 08/21/16 17:42 08/21/16 18:00 08/21/16 20:43 Activated Partial Thromboplast Time 37.5 H Bedside Glucose 270 H 143 Arterial Blood HCO3 21.2 L Arterial Blood Base Excess -1.7 Arterial Blood Oxygen Saturation 93.3 L Wan Test ACCEPTAB Arterial Blood Gas Puncture Site Left Radial Arterial Blood Carboxyhemoglobin 0.6 Arterial Blood Date Drawn 08/21/2016 6:30:59 PM Arterial Blood Methemoglobin 0.5 Arterial Blood pCO2 (Temp correct) 30.9 L Arterial Blood pH (Temp corrected) 7.454 H Arterial Blood pO2 (Temp corrected) 69.4 L Blood Gas A-a O2 Differential 34.9 H Blood Gas Actual Respiration Rate 18 Blood Gas Modality ROOM AIR Blood Gas Notified Time 08/21/2016 6:46:45 PM Blood Gas Notified Whom AC Blood Gas Specimen Source Blood arterial Blood Gas Temperature 37.0 FiO2 21.0 Oxyhemoglobin Percent 92.3 L Total Hemoglobin 14.5 Test 08/22/16 01:33 08/22/16 05:55 08/22/16 07:00 08/22/16 08:17 Activated Partial Thromboplast Time 126.7 *H 83.3 *H Alanine Aminotransferase (ALT/SGPT) 80 H Albumin 3.5 Albumin/Globulin Ratio 1.16 Alkaline Phosphatase 163 H Anion Gap 18 H Aspartate Amino Transf (AST/SGOT) 95 H Basophils # 0.0 Basophils % 0.4 Blood Morphology Comment Blood Urea Nitrogen 56 H Calcium Level 8.5 Carbon Dioxide Level 24 Chloride Level 95 L Creatinine 1.48 H Direct Bilirubin 0.00 Eosinophils # 0.1 Eosinophils % 1.6 Globulin 3.00 Glucose Level 145 Hematocrit 37.8 L Hemoglobin 13.0 L INR International Normalized Ratio 0.96 Indirect Bilirubin 0.6 Lymphocytes # 0.5 L Lymphocytes % 6.2 L Magnesium Level 1.5 L Mean Corpuscular Hemoglobin 30.9 Mean Corpuscular Hemoglobin Concent 34.4 Mean Corpuscular Volume 89.8 Mean Platelet Volume 9.6 Monocytes # 1.0 H Monocytes % 12.8 H Neutrophils # 5.9 Neutrophils % 79.0 H Nucleated Red Blood Cells # 0.0 Nucleated Red Blood Cells % 0.0 Platelet Count 158 Potassium Level 2.8 *L Prothrombin Time 12.8 Prothrombin Time Ratio 1.0 Red Blood Count 4.22 L Red Cell Distribution Width 16.0 H Sodium Level 134 L Total Bilirubin 0.6 Total Protein 6.5 # White Blood Count 7.5 Arterial Blood HCO3 22.9 Arterial Blood Base Excess 0.2 Arterial Blood Oxygen Saturation 88.9 L Wan Test ACCEPTAB Arterial Blood Gas Puncture Site Right Radial Arterial Blood Carboxyhemoglobin 0.7 Arterial Blood Date Drawn 08/22/2016 9:20:48 AM Arterial Blood Methemoglobin 0.2 Arterial Blood pCO2 (Temp correct) 32.0 L Arterial Blood pH (Temp corrected) 7.473 H Arterial Blood pO2 (Temp corrected) 56.2 L Blood Gas A-a O2 Differential 98.5 H Blood Gas Modality NASAL CANNULA Blood Gas Notified Time 08/22/2016 9:38:59 AM Blood Gas Notified Whom JLD Blood Gas Specimen Source Blood arterial Blood Gas Temperature 37.0 FiO2 27.0 Oxyhemoglobin Percent 88.1 L Total Hemoglobin 14.4 Bedside Glucose 221 H Medications Medications Current Medications Sodium Chloride (NS) 1,000 ml @ 50 mls/hr Q20H IV Last administered on 12:21; Admin Dose 50 MLS/HR; Start 08/21/16 at 00:00 Lorazepam (Ativan) 0.5 mg Q6H PRN IV ANXIETY; Start 08/20/16 at 15:30 Ondansetron HCl (Zofran Inj) 4 mg Q6H PRN IV NAUSEA AND/OR VOMITING; Start 08/20 at 15:30 Aspirin (Aspirin) 81 mg DAILY PO Last administered on 08/22/16 10:01; Admin Dose 81 MG; Start 08/21/16 at 09:00 Nitroglycerin (Nitroglycerin (Sl Tab) 0.4 Mg) 1 tab Q5M PRN SL CHEST PAIN; Start 08/20/16 at 15:30 Acetaminophen (Tylenol Tab) 650 mg Q6H PRN PO PAIN LEVEL 1-3 OR FEVER; Start at 15:30 Morphine Sulfate (morphine) 2 mg Q4H PRN IV PAIN LEVEL 7-10 Last administered on 08/21/16 15:50; Admin Dose 2 MG; Start 08/20/16 at 15:30 Docusate Sodium (Colace) 100 mg Q12H PRN PO CONSTIPATION; Start 08/20/16 at 15: 30 Famotidine (Pepcid Iv) 20 mg DAILY IV Last administered on 08/22/16 10:02; Admin Dose 20 MG; Start 08/20/16 at 21:00 Hydralazine HCl (Apresoline) 50 mg Q8 PO Last administered on 08/22/16 05:39; Admin Dose 50 MG; Start 08/20/16 at 22:00 Salmeterol Xinafoate/ Fluticasone (Advair 250/50 Diskus) 1 inh BID INH Last administered on 08/22/16 10:03; Admin Dose 1 INH; Start 08/20/16 at 21:00 Miscellaneous Information 1 ea NOTE XX ; Start 08/20/16 at 16:30 Glucose (Glutose) 15 gm Q15M PRN PO DECREASED GLUCOSE; Start 08/20/16 at 16:30 Glucose (Glutose) 22.5 gm Q15M PRN PO DECREASED GLUCOSE; Start 08/20/16 at 16:30 Dextrose (D50w Syringe) 25 ml Q15M PRN IV DECREASED GLUCOSE; Start 08/20/16 at 16:30 Dextrose (D50w Syringe) 50 ml Q15M PRN IV DECREASED GLUCOSE; Start 08/20/16 at 16:30 Glucagon (Glucagen) 1 mg Q15M PRN IM DECREASED GLUCOSE; Start 08/20/16 at 16:30 Glucose (Glutose) 15 gm Q15M PRN BUCCAL DECREASED GLUCOSE; Start 08/20/16 at 16: 30 Prasugrel (Effient) 10 mg DAILY PO Last administered on 08/22/16 10:01; Admin Dose 10 MG; Start 08/20/16 at 17:30 Atorvastatin Calcium (Lipitor) 40 mg QHS PO Last administered on 08/21/16 20:43 ; Admin Dose 40 MG; Start 08/20/16 at 21:00 Metoprolol Tartrate (Lopressor) 25 mg BID PO Last administered on 08/22/16 10: 02; Admin Dose 25 MG; Start 08/20/16 at 21:00 Potassium Chloride 40 meq 40 meq BID PO Last administered on 08/22/16 10:01; Admin Dose 40 MEQ; Start 08/22/16 at 09:00; Stop 08/22/16 at 17:00 Magnesium Sulfate/ Sodium Chloride (Magnesium Sulfate/NS) 106 ml @ 35.333 mls/ hr ONCE ONCE IVPB ; Start 08/22/16 at 12:00; Stop 08/22/16 at 14:59 Insulin Glargine (Lantus) 15 unit DAILY@20 SC ; Start 08/22/16 at 20:00 LUBNA TAVARES MD Aug 22, 2016 12:55
[2016-08-22] MEDS ORDERED: POTASSIUM CHLORIDE (SR) 20 MEQ TAB PO STA (12:58)
[2016-08-22] MEDS ORDERED: POTASSIUM CHLORIDE 20 MEQ in SOD CHLORIDE 0.9% 100 ML IVPB ONE (13:00)
--- NOTE | 2016-08-22 14:46 | RADRPT ---
PROCEDURE: CR Right shoulder CLINICAL INDICATION: Shoulder pain TECHNIQUE: AP supine and Y view performed COMPARISON: No comparison available. FINDINGS: There is moderate glenohumeral osteoarthrosis. This is associated with joint space narrowing, subch ondral sclerosis and osteophytosis. There is moderate acromioclavicular degenerative disease. This is associated with narrowing, subchondral sclerosis and osteophytosis. The osseous structures are ot herwise normal the mineralization, architecture and alignment.No fracture or osseous lesion is ident ified. The soft tissues are unremarkable. IMPRESSION: Moderate glenohumeral osteoarthrosis. Moderate acromioclavicular degenerative disease RPTAT: RICNH .Mina Ceballos MD, MD Date Time Electronically viewed and signed by .Mina Ceballos MD, on 08/22/2016 14:45 .B/
--- NOTE | 2016-08-22 18:21 | CONS ---
Date/Time of Note Date/Time of Note DATE: 08/22/16 TIME: 18:19 Assessment/Plan Assessment/Plan Additional Assessment/Plan Acute kidney injury Non-ST elevation NH Preserved ejection fraction CAD with history of PCI COPD exacerbation Chronic respiratory failure Diabetes -Respiratory status continues to improve. Renal function improving. Would switch to p.o. Lasix from tomorrow. Continue dual antiplatelet therapy, beta- lory and statin therapy. Supplement potassium to maintain above 4.0 and magnesium above 2.0 .DC planning. Consultation Date/Type/Reason Admit Date/Time Aug 20, 2016 at 14:25 Type of Consultation: cv Referring Provider: JOAO ALBERTS MD 24 HR Interval Summary Free Text/Dictation Shortness of breath continues to improve, denies chest pain or palpitations Exam/Review of Systems Vital Signs Vitals Vital Signs Date Time Temp Pulse Resp B/P Pulse Ox O2 Delivery O2 Flow Rate FiO2 08/22/16 16:38 98.4 89 19 127/73 90 08/22/16 16:30 2.0 08/22/16 13:06 Nasal Cannula 08/22/16 02:13 100 Intake and Output 08/21/16 08/21/16 08/22/16 15:00 23:00 07:00 Intake Total 1200 ml Output Total 1200 ml Balance 0 ml Exam No apparent distress Constitutional: alert, oriented Head: normocephalic Neck: supple Respiratory: other (Coarse breath sounds bilaterally, no wheezing) Cardiovascular: other (S1-S2 heard), regular rate and rhythm Gastrointestinal: bowel sounds, non-tender, other (No guarding), soft Extremities: edema (Trace) Results Result Diagram: 08/22/16 0555 08/22/16 0555 Results 24 hrs Laboratory Tests Test 08/21/16 20:43 08/22/16 01:33 08/22/16 05:55 08/22/16 07:00 Bedside Glucose 143 Activated Partial Thromboplast Time 126.7 *H 83.3 *H Alanine Aminotransferase (ALT/SGPT) 80 H Albumin 3.5 Albumin/Globulin Ratio 1.16 Alkaline Phosphatase 163 H Anion Gap 18 H Aspartate Amino Transf (AST/SGOT) 95 H Basophils # 0.0 Basophils % 0.4 Blood Morphology Comment Blood Urea Nitrogen 56 H Calcium Level 8.5 Carbon Dioxide Level 24 Chloride Level 95 L Creatinine 1.48 H Direct Bilirubin 0.00 Eosinophils # 0.1 Eosinophils % 1.6 Globulin 3.00 Glucose Level 145 Hematocrit 37.8 L Hemoglobin 13.0 L INR International Normalized Ratio 0.96 Indirect Bilirubin 0.6 Lymphocytes # 0.5 L Lymphocytes % 6.2 L Magnesium Level 1.5 L Mean Corpuscular Hemoglobin 30.9 Mean Corpuscular Hemoglobin Concent 34.4 Mean Corpuscular Volume 89.8 Mean Platelet Volume 9.6 Monocytes # 1.0 H Monocytes % 12.8 H Neutrophils # 5.9 Neutrophils % 79.0 H Nucleated Red Blood Cells # 0.0 Nucleated Red Blood Cells % 0.0 Platelet Count 158 Potassium Level 2.8 *L Prothrombin Time 12.8 Prothrombin Time Ratio 1.0 Red Blood Count 4.22 L Red Cell Distribution Width 16.0 H Sodium Level 134 L Total Bilirubin 0.6 Total Protein 6.5 # White Blood Count 7.5 Arterial Blood HCO3 22.9 Arterial Blood Base Excess 0.2 Arterial Blood Oxygen Saturation 88.9 L Wan Test ACCEPTAB Arterial Blood Gas Puncture Site Right Radial Arterial Blood Carboxyhemoglobin 0.7 Arterial Blood Date Drawn 08/22/2016 9:20:48 AM Arterial Blood Methemoglobin 0.2 Arterial Blood pCO2 (Temp correct) 32.0 L Arterial Blood pH (Temp corrected) 7.473 H Arterial Blood pO2 (Temp corrected) 56.2 L Blood Gas A-a O2 Differential 98.5 H Blood Gas Modality NASAL CANNULA Blood Gas Notified Time 08/22/2016 9:38:59 AM Blood Gas Notified Whom JLD Blood Gas Specimen Source Blood arterial Blood Gas Temperature 37.0 FiO2 27.0 Oxyhemoglobin Percent 88.1 L Total Hemoglobin 14.4 Test 08/22/16 08:17 08/22/16 10:37 08/22/16 12:57 08/22/16 14:17 Bedside Glucose 221 H 167 Activated Partial Thromboplast Time 73.4 *H 58.1 H Test 08/22/16 17:06 Bedside Glucose 195 Medications Medications Current Medications Sodium Chloride (NS) 1,000 ml @ 50 mls/hr Q20H IV Last administered on t 12:21; Admin Dose 50 MLS/HR; Start 08/21/16 at 00:00 Lorazepam (Ativan) 0.5 mg Q6H PRN IV ANXIETY; Start 08/20/16 at 15:30 Ondansetron HCl (Zofran Inj) 4 mg Q6H PRN IV NAUSEA AND/OR VOMITING; Start 08/20 at 15:30 Aspirin (Aspirin) 81 mg DAILY PO Last administered on 08/22/16 10:01; Admin Dose 81 MG; Start 08/21/16 at 09:00 Nitroglycerin (Nitroglycerin (Sl Tab) 0.4 Mg) 1 tab Q5M PRN SL CHEST PAIN; Start 08/20/16 at 15:30 Acetaminophen (Tylenol Tab) 650 mg Q6H PRN PO PAIN LEVEL 1-3 OR FEVER; Start at 15:30 Morphine Sulfate (morphine) 2 mg Q4H PRN IV PAIN LEVEL 7-10 Last administered on 08/21/16 15:50; Admin Dose 2 MG; Start 08/20/16 at 15:30 Docusate Sodium (Colace) 100 mg Q12H PRN PO CONSTIPATION; Start 08/20/16 at 15: 30 Hydralazine HCl (Apresoline) 50 mg Q8 PO Last administered on 08/22/16 14:54; Admin Dose 50 MG; Start 08/20/16 at 22:00 Salmeterol Xinafoate/ Fluticasone (Advair 250/50 Diskus) 1 inh BID INH Last administered on 08/22/16 10:03; Admin Dose 1 INH; Start 08/20/16 at 21:00 Miscellaneous Information 1 ea NOTE XX ; Start 08/20/16 at 16:30 Glucose (Glutose) 15 gm Q15M PRN PO DECREASED GLUCOSE; Start 08/20/16 at 16:30 Glucose (Glutose) 22.5 gm Q15M PRN PO DECREASED GLUCOSE; Start 08/20/16 at 16:30 Dextrose (D50w Syringe) 25 ml Q15M PRN IV DECREASED GLUCOSE; Start 08/20/16 at 16:30 Dextrose (D50w Syringe) 50 ml Q15M PRN IV DECREASED GLUCOSE; Start 08/20/16 at 16:30 Glucagon (Glucagen) 1 mg Q15M PRN IM DECREASED GLUCOSE; Start 08/20/16 at 16:30 Glucose (Glutose) 15 gm Q15M PRN BUCCAL DECREASED GLUCOSE; Start 08/20/16 at 16: 30 Prasugrel (Effient) 10 mg DAILY PO Last administered on 08/22/16 10:01; Admin Dose 10 MG; Start 08/20/16 at 17:30 Atorvastatin Calcium (Lipitor) 40 mg QHS PO Last administered on 08/21/16 20:43 ; Admin Dose 40 MG; Start 08/20/16 at 21:00 Metoprolol Tartrate (Lopressor) 25 mg BID PO Last administered on 08/22/16 10: 02; Admin Dose 25 MG; Start 08/20/16 at 21:00 Insulin Glargine (Lantus) 15 unit DAILY@20 SC ; Start 08/22/16 at 20:00 Famotidine (Pepcid) 20 mg DAILY PO ; Start 08/23/16 at 09:00 Eddie Gutierrez DO Aug 22, 2016 18:21
[2016-08-22] MEDS ORDERED: INSULIN GLARGINE [LANtus] 3 ML PEN SC SCH (20:00)
[2016-08-22] MEDS: ATORVASTATIN 40 MG TAB PO SCH (20:26)
[2016-08-23] VITALS (9 sets, daily range): BP systolic 131–149; BP diastolic 71–83; PULSE 85–96; RESP 19–20
[2016-08-23] MEDS: ALBUTEROL/IPRATROPIUM (NEB) 3 ML AMP HHN SCH ×2 (02:26→07:36)
[2016-08-23 07:33] LABS: ADD SCAN DIFF NO
[2016-08-23 07:42] LABS: BASOPHILS % 0.3 % (0.0-2.0); EOSINOPHILS # 0.1 10^3/ul (0.0-0.5); HEMATOCRIT 37.4 % (42.0-52.0); HEMOGLOBIN 12.6 g/dl (14.0-18.0); LYMPHOCYTES # 0.7 10^3/ul (0.8-2.9); LYMPHOCYTES % 10.2 % (15.0-51.0); MEAN CORPUSCULAR HGB CONC 33.7 g/dl (32.0-37.0); MEAN PLATELET VOLUME 11.2 fl (7.4-10.4); MONOCYTE # 0.7 10^3/ul (0.3-0.9); MONOCYTES % 10.2 % (0.0-11.0); NEUTROPHIL # 5.4 10^3/ul (1.6-7.5); NEUTROPHILS % 76.2 % (39.0-77.0); PLATELET COUNT 179 10^3/UL (140-415); RED CELL DISTRIBUTION WIDTH 14.6 % (11.5-14.5); WHITE BLOOD COUNT 7.1 10^3/ul (4.8-10.8)
[2016-08-23 07:55] LABS: INR 0.96; PROTIME 12.8 Sec (12.2-14.2)
[2016-08-23 07:59] LABS: PARTIAL THROMBOPLASTIN TIME 85.3 Sec (25.0-35.0)
[2016-08-23 08:01] LABS: POTASSIUM 3.8 mmol/L (3.5-5.1)
[2016-08-23 08:04] LABS: CREATININE 1.22 mg/dl (0.61-1.24)
[2016-08-23 08:05] LABS: CALCIUM 8.8 mg/dl (8.4-10.2)
[2016-08-23] MEDS: HEPARIN 25000 UNITS/250 ML 250 ML IV SCH (08:25)
[2016-08-23] MEDS: ASPIRIN 81 MG TAB PO SCH (08:46)
[2016-08-23] MEDS: PRASUGREL HYDROCHLORIDE 10 MG TABLET PO SCH (08:46)
[2016-08-23] MEDS: METOPROLOL 25 MG TAB PO SCH (08:47)
[2016-08-23] MEDS: INSULIN ASPART [NOVOLOG] 3 ML PEN SC SCH ×4 (08:50→12:36)
[2016-08-23] MEDS: SALMETEROL/FLUTICASONE 250/50 INHA INH SCH (08:52)
[2016-08-23] MEDS ORDERED: FUROSEMIDE 40 MG TAB PO SCH (09:00)
[2016-08-23] MEDS ORDERED: FAMOTIDINE 20 MG TAB PO SCH (09:00)
--- NOTE | 2016-08-23 09:52 | RADRPT ---
PROCEDURE: XR Chest 1 View. CLINICAL INDICATION: Shortness of breath, congestive heart failure TECHNIQUE: AP view of the chest were obtained. COMPARISON: August 20, 2016 FINDINGS: The heart size is within normal limits. Calcified atherosclerosis is noted in the aorta. The lungs are hyperexpanded. Mild interstitial prominence in both lungs is unchanged. Atelectasis versus mini mal infiltrate is seen at the medial right lung base. No pneumothorax is seen. The osseous structur es are osteopenic and are stable. Degenerative changes are seen in the shoulders. IMPRESSION: Calcified atherosclerosis in the aorta. Hyperexpanded lungs with diffuse mild interstitial prominence in both lungs. Interstitial prominenc e could be chronic. Findings could reflect COPD. Interval development of atelectasis versus mild infiltrate at the medial right lung base. RPTAT: AA .Julian Dove MD, Date Time Electronically viewed and signed by .Julian Dove MD, MD on 08/23/2016 09:51 .P/
--- NOTE | 2016-08-23 11:08 | CONS ---
Date/Time of Note Date/Time of Note DATE: 08/23/16 TIME: 11:06 Assessment/Plan Assessment/Plan Additional Assessment/Plan Acute kidney injury Non-ST elevation [place] Preserved ejection fraction CAD with history of PCI COPD exacerbation Chronic respiratory failure Diabetes -Respiratory status continues to improve. Renal function improving. Continue dual antiplatelet therapy, beta-lory and statin therapy. Continue maintenance diuretics. DC planning with follow-up with patient's primary ultrasonic cleaner. Consultation Date/Type/Reason Admit Date/Time Aug 20, 2016 at 14:25 Type of Consultation: cv Referring Provider: JOAO ALBERTS MD 24 HR Interval Summary Free Text/Dictation Shortness of breath continues to improve. Denies chest pain or palpitations Exam/Review of Systems Vital Signs Vitals Vital Signs Date Time Temp Pulse Resp B/P Pulse Ox O2 Delivery O2 Flow Rate FiO2 08/23/16 08:28 2.0 08/23/16 08:01 93 08/23/16 07:51 98.3 19 131/78 94 08/23/16 07:37 Nasal Cannula 08/22/16 02:13 100 Intake and Output 08/22/16 08/22/16 08/23/16 15:00 23:00 07:00 Intake Total 700 ml 250 ml Output Total 2000 ml 1500 ml Balance -1300 ml -1250 ml Exam No apparent distress Constitutional: alert, oriented Head: normocephalic Neck: supple Respiratory: other (Coarse breath sounds bilaterally, no wheezing) Cardiovascular: other (S1-S2 heard), regular rate and rhythm Gastrointestinal: bowel sounds, non-tender, soft Extremities: edema (Trace) Results Result Diagram: 08/23/16 0646 08/23/16 0646 Results 24 hrs Laboratory Tests Test 08/22/16 12:57 08/22/16 14:17 08/22/16 17:06 08/22/16 20:25 Bedside Glucose 167 195 170 Activated Partial Thromboplast Time 58.1 H Test 08/22/16 20:52 08/23/16 06:46 08/23/16 07:35 Activated Partial Thromboplast Time 53.3 H 85.3 *H Anion Gap 17 H Basophils # 0.0 Basophils % 0.3 Blood Urea Nitrogen 38 #H Calcium Level 8.8 Carbon Dioxide Level 28 Chloride Level 98 Creatinine 1.22 Eosinophils # 0.1 Eosinophils % 2.0 Glucose Level 148 Hematocrit 37.4 L Hemoglobin 12.6 L INR International Normalized Ratio 0.96 Lymphocytes # 0.7 L Lymphocytes % 10.2 L Magnesium Level 2.0 Mean Corpuscular Hemoglobin 30.0 Mean Corpuscular Hemoglobin Concent 33.7 Mean Corpuscular Volume 89.0 Mean Platelet Volume 11.2 H Monocytes # 0.7 Monocytes % 10.2 Neutrophils # 5.4 Neutrophils % 76.2 Nucleated Red Blood Cells # 0.0 Nucleated Red Blood Cells % 0.0 Platelet Count 179 Potassium Level 3.8 Prothrombin Time 12.8 Prothrombin Time Ratio 1.0 Red Blood Count 4.20 L Red Cell Distribution Width 14.6 H Sodium Level 139 White Blood Count 7.1 Bedside Glucose 147 Medications Medications Current Medications Sodium Chloride (NS) 1,000 ml @ 50 mls/hr Q20H IV Last administered on 12:21; Admin Dose 50 MLS/HR; Start 08/21/16 at 00:00 Lorazepam (Ativan) 0.5 mg Q6H PRN IV ANXIETY; Start 08/20/16 at 15:30 Ondansetron HCl (Zofran Inj) 4 mg Q6H PRN IV NAUSEA AND/OR VOMITING; Start 08/20 at 15:30 Aspirin (Aspirin) 81 mg DAILY PO Last administered on 08/23/16 08:46; Admin Dose 81 MG; Start 08/21/16 at 09:00 Nitroglycerin (Nitroglycerin (Sl Tab) 0.4 Mg) 1 tab Q5M PRN SL CHEST PAIN; Start 08/20/16 at 15:30 Acetaminophen (Tylenol Tab) 650 mg Q6H PRN PO PAIN LEVEL 1-3 OR FEVER; Start at 15:30 Morphine Sulfate (morphine) 2 mg Q4H PRN IV PAIN LEVEL 7-10 Last administered on 08/21/16 15:50; Admin Dose 2 MG; Start 08/20/16 at 15:30 Docusate Sodium (Colace) 100 mg Q12H PRN PO CONSTIPATION; Start 08/20/16 at 15: 30 Hydralazine HCl (Apresoline) 50 mg Q8 PO Last administered on 08/23/16 05:45; Admin Dose 50 MG; Start 08/20/16 at 22:00 Salmeterol Xinafoate/ Fluticasone (Advair 250/50 Diskus) 1 inh BID INH Last administered on 08/23/16 08:52; Admin Dose 1 INH; Start 08/20/16 at 21:00 Miscellaneous Information 1 ea NOTE XX ; Start 08/20/16 at 16:30 Glucose (Glutose) 15 gm Q15M PRN PO DECREASED GLUCOSE; Start 08/20/16 at 16:30 Glucose (Glutose) 22.5 gm Q15M PRN PO DECREASED GLUCOSE; Start 08/20/16 at 16:30 Dextrose (D50w Syringe) 25 ml Q15M PRN IV DECREASED GLUCOSE; Start 08/20/16 at 16:30 Dextrose (D50w Syringe) 50 ml Q15M PRN IV DECREASED GLUCOSE; Start 08/20/16 at 16:30 Glucagon (Glucagen) 1 mg Q15M PRN IM DECREASED GLUCOSE; Start 08/20/16 at 16:30 Glucose (Glutose) 15 gm Q15M PRN BUCCAL DECREASED GLUCOSE; Start 08/20/16 at 16: 30 Prasugrel (Effient) 10 mg DAILY PO Last administered on 08/23/16 08:46; Admin Dose 10 MG; Start 08/20/16 at 17:30 Atorvastatin Calcium (Lipitor) 40 mg QHS PO Last administered on 08/22/16 20:26 ; Admin Dose 40 MG; Start 08/20/16 at 21:00 Metoprolol Tartrate (Lopressor) 25 mg BID PO Last administered on 08/23/16 08: 47; Admin Dose 25 MG; Start 08/20/16 at 21:00 Insulin Glargine (Lantus) 15 unit DAILY@20 SC Last administered on 08/22/16 20: 32; Admin Dose 15 UNIT; Start 08/22/16 at 20:00 Famotidine (Pepcid) 20 mg DAILY PO Last administered on 08/23/16 08:47; Admin Dose 20 MG; Start 08/23/16 at 09:00 Furosemide (Lasix) 40 mg DAILY PO Last administered on 08/23/16 08:47; Admin Dose 40 MG; Start 08/23/16 at 09:00 Eddie Gutierrez DO Aug 23, 2016 11:08
[2016-08-23] MEDS ORDERED: PRAS10TA6 PO (11:42)
--- NOTE | 2016-08-23 11:45 | PDOCDIS ---
Discharge Instructions DIAGNOSIS Discharge Diagnosis: NSTEMI, Hypoxic Respiratory Failuire CONDITION Patient Condition: Stable HOME CARE INSTRUCTIONS: Special Diet: cardiac 1800 vinh ACTIVITY: Activity Restrictions: Slowly Increase Activity Rest between Activity Avoid heavy lifting FOLLOW UP/APPOINTMENTS Appointments follow up with primary care physician in one week. follow up with your operations management professionals in 2 weeks. Follow up with pulmonary as needed. OTHER ORDERS: Other Orders: NSTEMI - most likely due to demand ischemia, continue with aspirin and effient Hypoxemic respiratory failure - improved - continue with oxygen therapy and kelyix GEOVANNI GUEVARA MD Aug 23, 2016 11:45
[2016-08-23] MEDS: SOD CHLORIDE 0.9% 1,000 ML IV SCH (12:00)
--- NOTE | 2016-08-23 12:57 | PN ---
DATE: 08/23/2016 SUBJECTIVE: Mr. Helm is stable this morning, complaining of pain around Gaspar catheter site ____. Requesting removal of Gaspar catheter. PHYSICAL EXAMINATION: VITAL SIGNS: Temperature 98. Pulse is 85, blood pressure 131/78, O2 saturation 92% on 2 L nasal ca nnula. NECK: Supple, no JVD or lymphadenopathy. CARDIAC: S1, S2, no added sounds or murmurs. CHEST: Diminished air entry bilaterally. No rales or wheezes. ABDOMEN: Soft, nontender. No guarding or rebound. EXTREMITIES: No cyanosis, clubbing, 1+ edema. NEUROLOGIC: Generalized weakness, but no focal deficits. LABORATORY DATA: White count , hemoglobin 12.6. BUN 38, creatinine 1.2. PTT is 85. IMPRESSION AND PLAN: 1. Chronic obstructive pulmonary disease with acute exacerbation. 2. Mild congestive cardiac failure with preserved ejection fraction. 3. Chronic hypoxemia. The patient is stable for discharge today. Should continue home inhalers, supplemental O2. Encoura ge ambulation. Outpatient pulmonary function tests and can follow up with primary care physician. Dictated By: ALISA TAYLOR/JOVANNY Conf#: [id number] DID#: [id number]
--- NOTE | 2016-08-23 13:44 | CONS ---
Date/Time of Note Date/Time of Note DATE: 08/23/16 TIME: 13:43 Assessment/Plan Assessment/Plan Additional Assessment/Plan 1. Acute hypoxic respiratory distress, likely secondary to congestive heart failure, diastoli 2. Elevated D-dimer. V/Q scan showed low probability of PE. 3. Acute kidney injury versus acute kidney injury on chronic kidney disease, unknown stage, secondary to cardiorenal syndrome. 4. 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 5. History of congestive heart failure. 6. History of chronic obstructive pulmonary disease. 7. Acute non-ST elevation myocardial infarction. 8. Left kidney Non obstructing renal stone PLAN: V/Q showed Low probability PE lasix changed to 40mg PO daily good urine output, magnesium replacement, Cr improved to normal US showed medical renal disease, left kidney non obstructinve renal stone d/c richards catheter will follo wup Consultation Date/Type/Reason Admit Date/Time Aug 20, 2016 at 14:25 Type of Consultation: NEPHROLOGY Referring Provider: JOAO ALBERTS MD 24 HR Interval Summary Free Text/Dictation pt creatinine better, BP stable, Exam/Review of Systems Vital Signs Vitals Vital Signs Date Time Temp Pulse Resp B/P Pulse Ox O2 Delivery O2 Flow Rate FiO2 08/23/16 12:48 91 08/23/16 12:14 98.0 19 149/83 90 08/23/16 08:28 2.0 08/23/16 07:37 Nasal Cannula 08/22/16 02:13 100 Intake and Output 08/22/16 08/22/16 08/23/16 15:00 23:00 07:00 Intake Total 700 ml 250 ml Output Total 2000 ml 1500 ml Balance -1300 ml -1250 ml Results Result Diagram: 08/23/16 0646 08/23/16 0646 Results 24 hrs Laboratory Tests Test 08/22/16 14:17 08/22/16 17:06 08/22/16 20:25 08/22/16 20:52 Activated Partial Thromboplast Time 58.1 H 53.3 H Bedside Glucose 195 170 Test 08/23/16 06:46 08/23/16 07:35 08/23/16 12:16 Activated Partial Thromboplast Time 85.3 *H Anion Gap 17 H Basophils # 0.0 Basophils % 0.3 Blood Urea Nitrogen 38 #H Calcium Level 8.8 Carbon Dioxide Level 28 Chloride Level 98 Creatinine 1.22 Eosinophils # 0.1 Eosinophils % 2.0 Glucose Level 148 Hematocrit 37.4 L Hemoglobin 12.6 L INR International Normalized Ratio 0.96 Lymphocytes # 0.7 L Lymphocytes % 10.2 L Magnesium Level 2.0 Mean Corpuscular Hemoglobin 30.0 Mean Corpuscular Hemoglobin Concent 33.7 Mean Corpuscular Volume 89.0 Mean Platelet Volume 11.2 H Monocytes # 0.7 Monocytes % 10.2 Neutrophils # 5.4 Neutrophils % 76.2 Nucleated Red Blood Cells # 0.0 Nucleated Red Blood Cells % 0.0 Platelet Count 179 Potassium Level 3.8 Prothrombin Time 12.8 Prothrombin Time Ratio 1.0 Red Blood Count 4.20 L Red Cell Distribution Width 14.6 H Sodium Level 139 White Blood Count 7.1 Bedside Glucose 147 280 H Medications Medications Current Medications Sodium Chloride (NS) 1,000 ml @ 50 mls/hr Q20H IV Last administered on 12:21; Admin Dose 50 MLS/HR; Start 08/21/16 at 00:00 Lorazepam (Ativan) 0.5 mg Q6H PRN IV ANXIETY; Start 08/20/16 at 15:30 Ondansetron HCl (Zofran Inj) 4 mg Q6H PRN IV NAUSEA AND/OR VOMITING; Start 08/20 at 15:30 Aspirin (Aspirin) 81 mg DAILY PO Last administered on 08/23/16 08:46; Admin Dose 81 MG; Start 08/21/16 at 09:00 Nitroglycerin (Nitroglycerin (Sl Tab) 0.4 Mg) 1 tab Q5M PRN SL CHEST PAIN; Start 08/20/16 at 15:30 Acetaminophen (Tylenol Tab) 650 mg Q6H PRN PO PAIN LEVEL 1-3 OR FEVER; Start at 15:30 Morphine Sulfate (morphine) 2 mg Q4H PRN IV PAIN LEVEL 7-10 Last administered on 08/21/16 15:50; Admin Dose 2 MG; Start 08/20/16 at 15:30 Docusate Sodium (Colace) 100 mg Q12H PRN PO CONSTIPATION; Start 08/20/16 at 15: 30 Hydralazine HCl (Apresoline) 50 mg Q8 PO Last administered on 08/23/16 05:45; Admin Dose 50 MG; Start 08/20/16 at 22:00 Salmeterol Xinafoate/ Fluticasone (Advair 250/50 Diskus) 1 inh BID INH Last administered on 08/23/16 08:52; Admin Dose 1 INH; Start 08/20/16 at 21:00 Miscellaneous Information 1 ea NOTE XX ; Start 08/20/16 at 16:30 Glucose (Glutose) 15 gm Q15M PRN PO DECREASED GLUCOSE; Start 08/20/16 at 16:30 Glucose (Glutose) 22.5 gm Q15M PRN PO DECREASED GLUCOSE; Start 08/20/16 at 16:30 Dextrose (D50w Syringe) 25 ml Q15M PRN IV DECREASED GLUCOSE; Start 08/20/16 at 16:30 Dextrose (D50w Syringe) 50 ml Q15M PRN IV DECREASED GLUCOSE; Start 08/20/16 at 16:30 Glucagon (Glucagen) 1 mg Q15M PRN IM DECREASED GLUCOSE; Start 08/20/16 at 16:30 Glucose (Glutose) 15 gm Q15M PRN BUCCAL DECREASED GLUCOSE; Start 08/20/16 at 16: 30 Prasugrel (Effient) 10 mg DAILY PO Last administered on 08/23/16 08:46; Admin Dose 10 MG; Start 08/20/16 at 17:30 Atorvastatin Calcium (Lipitor) 40 mg QHS PO Last administered on 08/22/16 20:26 ; Admin Dose 40 MG; Start 08/20/16 at 21:00 Metoprolol Tartrate (Lopressor) 25 mg BID PO Last administered on 08/23/16 08: 47; Admin Dose 25 MG; Start 08/20/16 at 21:00 Insulin Glargine (Lantus) 15 unit DAILY@20 SC Last administered on 08/22/16 20: 32; Admin Dose 15 UNIT; Start 08/22/16 at 20:00 Famotidine (Pepcid) 20 mg DAILY PO Last administered on 08/23/16 08:47; Admin Dose 20 MG; Start 08/23/16 at 09:00 Furosemide (Lasix) 40 mg DAILY PO Last administered on 08/23/16 08:47; Admin Dose 40 MG; Start 08/23/16 at 09:00 LUBNA TAVARES MD Aug 23, 2016 13:44
--- NOTE | 2016-08-24 08:07 | DS ---
DATE OF ADMISSION: 08/20/2016 DATE OF DISCHARGE: 08/23/2016 DISCHARGE DIAGNOSES: NSTEMI secondary to demand ischemia; acute hypoxemic respiratory failure secondary to congestive heart failure exacerbation, COPD exacerbation, improved; CHF acute on chronic; diastolic dysfunction, improved; acute renal failure, improved; hepatorenal syndrome, hypertension, type 2 diabetes, CAD status post PCI. HOSPITAL COURSE: This is a 71-year-old male with a past medical history of COPD, essential hypertension, type 2 diabetes, CAD status post PCI, who presents with shortness of breath and lightheadedness. States for the last several days, progressively worsening shortness of breath, and using his nebulizer and aerosol treatments more frequently. CONSULTANTS ON THIS CASE: Cardiology, nephrology as well as pulmonology. The patient was admitted to telemetry for further evaluation and treatment. Initial imaging had shown a chest x-ray with: 1. Atherosclerosis. Aortic arch showed no evidence of acute infiltrate. 2. Mild left ventricular enlargement. 3. Spondylosis of the thoracic spine. 4. No significant change noted as of 08/27/2015 . A lung scan was done, nuclear, because of his creatinine being high. A low probability for pulmonary embolism. The patient was placed on heparin drip because of NSTEMI. A venous duplex was done showing no sonographic evidence for DVT. Renal ultrasound was done showing: No hydronephrosis, 7 mm nonobstructing left renal stones suggest echogenic kidneys as can be seen with medical renal disease. A shoulder x-ray showed moderate glenohumeral osteoarthrosis, moderate acromioclavicular degenerative disease. Chest x-ray repeat was done showing calcified atherosclerosis in the aorta, hyperexpanded lungs with diffuse mild interstitial prominence in both lungs. Interstitial prominence could be due to chronic findings, could reflect COPD or interval development of atelectasis. Rule out ____ changes in the medial right lung base. Initial laboratory findings had shown a white count of 10.4 and currently 7.1, H and H has been stable. Platelets of 179. Chemistry: His initial potassium was 3.6, chloride of 90, carbon dioxide 21, anion gap 28, BUN and creatinine 66 and 3.50, AST of 77, ALT of 60, alkaline phosphatase of 163, troponin of 2.390, went down 2.290 to 1.980; LDL 79, HDL 31, cholesterol 152, triglycerides 211, BUN and creatinine subsequently went down to 38 and 1.22, hemoglobin A1c was 7.1. Uric acid 10.8. The patient was restarted on his Effient as per previous , because he has a complete total occlusion of one of his coronary arteries at this time, was monitored for any acute changes. A repeat echocardiogram was also done that showed: Normal left ventricular systolic function, normal left ventricular cavity size, normal left ventricular wall thickness, ejection fraction visually estimated at 65%, stage I diastolic dysfunction. The segments of LV are hypokinetic inferolateral mid-segment, inferolateral base, moderate enlargement of right ventricle, mild right ventricular hypokinesis, flattened septum consistent with RV pressure overload, left atrium is normal in size. There is mild enlargement of right atrium. Estimated peak PA systolic pressure 52 mmHg. There is mild tricuspid regurgitation, no significant valvular stenosis or regurgitation seen of remaining visualized valves, normal pericardium with no significant pericardial effusion. Subsequently, the patient had an ABG on admission showing pH of 7.454, pCO2 of 30.9, pO2 of 69.4, bicarbonate 21.2, O2 sats 93.3, base excess -1.7, improved. At this time, patient is on 2 liters which is his home dose and urine was also negative at this time. Microbiology was negative. Blood cultures were negative as well. Otherwise, on the day of discharge, the patient's physical exam findings improved. I spoke to him about the care plan and reviewed the care plan at this time. DISPOSITION: Home. CONDITION: Stable. DISCHARGE MEDICATIONS: . Will include 1. Effient 10 mg p.o. daily. 2. Allopurinol 300 mg p.o. daily. 3. Norvasc 10 mg p.o. daily. 4. Aspirin 81 mg p.o. daily. 5. Atorvastatin 20 mg p.o. at bedtime. 6. Symbicort 2 puffs inhaled b.i.d. 7. Lasix 20 mg p.o. daily. 8. Hydralazine 25 mg p.o. q. 8. 9. Losartan/hydrochlorothiazide 100/25 mg 1 tab p.o. daily. 10. Metformin 1000 mg p.o. b.i.d. 11. Toprol-XL 25 mg p.o. daily. FOLLOWUP: The patient will follow up with his primary care physician in 1 week. Will follow with cardiology in 2 weeks. Will follow with his regular resource conservation specialist in 2 weeks and follow up with pulmonology in 2 weeks as well. The patient and consultants were made aware of this and agree with the plan. Coordination of discharge greater than 45 minutes. Dictated By: GEOVANNI HOGAN/JOVANNY Conf#: [id number] DID#: [id number]
== END 2016-08-23 14:17 | disposition home or self-care (01) | DRG 280 ==
LOC: E/R 09:55 → MS4 14:25
PROVIDERS: ADMIT Family Medicine; ATTEND Family Medicine
DX: I21.4 Non-ST elevation (NSTEMI) myocardial infarction (principal); N17.0 Acute kidney failure with tubular necrosis; J96.21 Acute and chronic respiratory failure with hypoxia; I50.33 Acute on chronic diastolic (congestive) heart failure; J44.1 Chronic obstructive pulmonary disease with (acute) exacerbation; I13.0 Hypertensive heart and chronic kidney disease with heart failure and stage 1 through stage 4 chronic kidney disease, or unspecified chronic kidney disease; Z87.891 Personal history of nicotine dependence; E11.9 Type 2 diabetes mellitus without complications; N18.9 Chronic kidney disease, unspecified; E11.21 Type 2 diabetes mellitus with diabetic nephropathy; I25.10 Atherosclerotic heart disease of native coronary artery without angina pectoris; I25.82 Chronic total occlusion of coronary artery
CPT/HCPCS: 36415; 36600; 71010; 76775; 78582; 80048; 80053; 80061; 81001; 81003; 82550; 82553; 82803; 82962; 83036; 83735; 83880; 84155; 84300; 84443; 84484; 84560; 85025; 85378; 85610; 85730; 87040; 89190; 93005; 93306; 93970; 94640; 94664; 96372; 96374; 96375; J1940; A9539; A9540; J0456; J0696; J1644; J1650; J1815; J2270; J3475; J3480; J7030

== ENCOUNTER 2016-12-16 09:17 | Inpatient (IN) | payer OTHER ==
[~2016-12-16] VITALS: Ht 167.6 cm; Wt 70.0 kg
[2016-12-16] VITALS (8 sets, daily range): BP systolic 128–142; BP diastolic 79–92; PULSE 101–110; RESP 18–19; TEMP 97.1; Ht 167.6 cm; Wt 70.0 kg
[~2016-12-16 09:17] MED LIST changes: +BUDE6HFA INHALATION; +FURO-110 PO; -HYDR-3671 PO; +HYDR-3672 PO; -LEVO500T72 PO; +LOSA1TAB20 PO; -MED4DP PO; +PRAS10TA6 PO
[2016-12-16] MEDS ORDERED: ALBUTEROL 0.5% (NEB) 2.5 MG/0.5 ML AMP INH STA (09:44)
[2016-12-16] MEDS ORDERED: METHYLPREDNISOLONE 125 MG INJ IV STA (09:44)
[2016-12-16 10:01] LABS: ADD SCAN DIFF NO
[2016-12-16 10:04] LABS: BASOPHIL # 0.1 10^3/ul (0.0-0.1); BASOPHILS % 0.8 % (0.0-2.0); EOSINOPHILS # 0.1 10^3/ul (0.0-0.5); EOSINOPHILS % 1.1 % (0.0-7.0); HEMATOCRIT 42.8 % (42.0-52.0); LYMPHOCYTES # 0.9 10^3/ul (0.8-2.9); LYMPHOCYTES % 14.6 % (15.0-51.0); MEAN CORPUSCULAR HGB CONC 32.7 g/dl (32.0-37.0); MEAN CORPUSCULAR VOLUME 91.6 fl (82.0-101.0); MEAN PLATELET VOLUME 10.1 fl (7.4-10.4); MONOCYTE # 0.3 10^3/ul (0.3-0.9); MONOCYTES % 5.4 % (0.0-11.0); NEUTROPHIL # 4.9 10^3/ul (1.6-7.5); NEUTROPHILS % 77.8 % (39.0-77.0); PLATELET COUNT 217 10^3/UL (140-415); RED BLOOD COUNT 4.67 10^6/ul (4.70-6.10); RED CELL DISTRIBUTION WIDTH 15.3 % (11.5-14.5); WHITE BLOOD COUNT 6.3 10^3/ul (4.8-10.8)
--- NOTE | 2016-12-16 10:04 | RADRPT ---
PROCEDURE: XR Chest. CLINICAL INDICATION: Chest pain TECHNIQUE: Single frontal view of the chest was obtained COMPARISON: 08/23/1969 FINDINGS: The heart is enlarged. The thoracic aorta is calcified. There is a right lower lobe infiltrate and small right pleural effusion. There is no pneumothorax. RPTAT: AA IMPRESSION: Right lower lobe infiltrate and small right pleural effusion. Mild cardiomegaly. Calcified aorta consistent with atherosclerotic disease. .David Hughse MD, MD Date Time Electronically viewed and signed by .David Hughes MD, on 12/16/2016 10:03 .S/
[2016-12-16] MEDS ORDERED: FURO40TA4 ORAL (10:08)
[2016-12-16] MEDS ORDERED: LOSA100T7 ORAL (10:08)
[2016-12-16] MEDS ORDERED: POTA10TA37 ORAL (10:11)
[2016-12-16 10:32] LABS: INR 1.07; PROTIME 13.9 Sec (12.2-14.2); PT RATIO 1.1
[2016-12-16 10:33] LABS: ALBUMIN 4.6 g/dl (3.3-4.9); ALBUMIN/GLOBULIN RATIO 2.3; BILIRUBIN,INDIRECT 0.7 mg/dl (0-1.1); BILIRUBIN,TOTAL 0.7 mg/dl (0.2-1.3); CALCIUM 9.3 mg/dl (8.4-10.2); CREATININE 2.41 mg/dl (0.61-1.24); PARTIAL THROMBOPLASTIN TIME 29.7 Sec (25.0-35.0); POTASSIUM 5.3 mmol/L (3.5-5.1); TOTAL PROTEIN 6.6 g/dl (6.1-8.1)
[2016-12-16 10:43] LABS: TROPONIN-I 0.045 ng/ml (0.00-0.12)
[2016-12-16] MEDS ORDERED: CEFEPIME 1GM/50 ML (PMX) 50 ML IVPB STA (10:50)
[2016-12-16] MEDS ORDERED: VANCOMYCIN 1 GM (PMX) 250 ML IVPB STA (10:50)
[2016-12-16] MEDS ORDERED: ACETAMINOPHEN 325 MG TAB PO PRN ×2 (14:00→16:00)
[2016-12-16] MEDS ORDERED: ONDANSETRON 4 MG INJ IV PRN ×2 (14:00→16:00)
--- NOTE | 2016-12-16 14:01 | ERA ---
ER Documentation Chief Complaint Date/Time DATE: 12/16/16 TIME: 13:58 Chief Complaint SHORTNESS OF BREATH; COUGH ; HX OF COPD HPI This is a 71-year-old male with history of COPD, CHF who is complaining of some shortness of breath and a cough over the past several days. Patient has a history of heart failure with chronic swelling of the legs. He does state that lately he has had shortness of breath when he walks or lays flat. He says he has had a cough with occasional productive sputum but no fever. This morning he stated he was worse in his breathing so he came to the ER. He is not in any respiratory distress. No palpitations no substernal chest pain ROS All systems reviewed and are negative except as per history of present illness. Medications Home Meds Reported Medications Potassium Chloride* (K-Dur*) 10 Meq Tab.prt.sr, 10 MEQ ORAL DAILY, #30 12/16/16 Furosemide* (Furosemide*) 40 Mg Tablet, 40 MG ORAL DAILY, #30 12/16/16 Losartan Potassium* (Losartan Potassium*) 100 Mg Tablet, 100 MG ORAL DAILY, #90 12/16/16 Budesonide-Formoterol Fumarate* (Symbicort*) 160-4.5 Hfa.aer.ad, 2 PUFF INHALATION BID, #1 EACH 08/20/16 Hydralazine Hcl* (Hydralazine Hcl*) 50 Mg Tab, 50 MG PO Q8, #90 TAB 08/20/16 Atorvastatin Calcium* (Atorvastatin Calcium*) 20 Mg Tablet, 20 MG PO QHS, #30 TAB 08/23/15 Aspirin* (Aspirin* EC) 81 Mg Tablet.dr, 81 MG PO DAILY, TAB 08/23/15 Metoprolol Succinate* (Toprol XL*) 25 Mg Tab.sr.24h, 25 MG PO DAILY, #30 TAB 08/23/15 Amlodipine Besylate* (Amlodipine Besylate*) 10 Mg Tablet, 10 MG PO DAILY, #30 TAB 08/23/15 Metformin* (Glucophage*) 1,000 Mg Tablet, 1000 MG PO BID, #60 TAB 08/23/15 Allopurinol* (Allopurinol*) 300 Mg Tablet, 300 MG PO DAILY, TAB 08/23/15 Discontinued Reported Medications Losartan-Hydrochlorothiazide (Losartan-HCTZ) 100-25 Mg Tab, 1 TAB PO DAILY, TAB 08/20/16 Furosemide* (Lasix*) 20 Mg Tablet, 20 MG PO DAILY, TAB 08/20/16 Discontinued Scripts Prasugrel Hydrochloride* (Effient*) 10 Mg Tablet, 10 MG PO DAILY for 30 Days, # 30 TAB Prov:GEOVANNI GUEVARA MD 08/23/16 Allergies Allergies: Coded Allergies: No Known Allergy (Unverified , 12/16/16) PMhx/Soc History of Surgery: Yes (2 stents in March 2016) Anesthesia Reaction: No Hx Neurological Disorder: No Hx Respiratory Disorders: Yes (COPD) Hx Cardiac Disorders: Yes (HTN, high chol, history of stents) Hx Psychiatric Problems: No Hx Miscellaneous Medical Probl: No Hx Alcohol Use: Yes Hx Substance Use: No Hx Tobacco Use: Yes FmHx Family History: No coronary disease Physical Exam Vitals Vital Signs Date Time Temp Pulse Resp B/P Pulse Ox O2 Delivery O2 Flow Rate FiO2 12/16/16 13:00 98.3 98 20 128/84 90 Nasal Cannula 3.0 12/16/16 11:30 97.4 97 29 131/90 93 Mask 3.0 12/16/16 10:16 89 22 92 Nasal Cannula 3.0 12/16/16 10:00 89 25 120/91 100 Mask 10.0 12/16/16 09:40 Nasal Cannula 3.0 12/16/16 09:35 Nasal Cannula 3 12/16/16 09:18 98.2 86 25 11/68 96 Physical Exam Const: Well-developed, well-nourished Head: Atraumatic, normocephalic Eyes: Normal Conjunctiva, PERRLA, EOMI, normal sclera, no nystagmus ENT: Normal External Ears, Nose and Mouth, moist mucus membranes. Neck: Full range of motion. No meningismus, no lymphadenopathy. Resp: [Decreased breath sounds in the right base with distant sounds throughout Cardio: Regular rate and rhythm, no murmurs, S1 S2 present Abd: Soft, non tender x 4, non distended. Normal bowel sounds, no guarding or rebound, no pulsitile abdominal masses or bruits Skin: No petechiae or rashes, no ecchymosis , no maculopapular rash Back: No midline or flank tenderness Ext: No cyanosis, +4 edema, FROM x 4, normal inspection, neurovascularly intact x 4 Neur: Awake and alert, STR 5/5 x 4, sensation intact x 4, no focal findings, cerebellum intact Psych: Normal Mood and Affect Result Diagram: 12/16/1694412/16/1645 Results 24 hrs Laboratory Tests Test 12/16/16 09:39 12/16/16 09:45 Bedside Glucose 123mg/dL White Blood Count 6.310^3/ul Red Blood Count 4.6710^6/ul Hemoglobin 14.0g/dl Hematocrit 42.8% Mean Corpuscular Volume 91.6fl Mean Corpuscular Hemoglobin 30.0pg Mean Corpuscular Hemoglobin Concent 32.7g/dl Red Cell Distribution Width 15.3% Platelet Count 91895^3/UL Mean Platelet Volume 10.1fl Neutrophils % 77.8% Lymphocytes % 14.6% Monocytes % 5.4% Eosinophils % 1.1% Basophils % 0.8% Nucleated Red Blood Cells % 0.0/100WBC Neutrophils # 4.910^3/ul Lymphocytes # 0.910^3/ul Monocytes # 0.310^3/ul Eosinophils # 0.110^3/ul Basophils # 0.110^3/ul Nucleated Red Blood Cells # 0.010^3/ul Prothrombin Time 13.9Sec Prothrombin Time Ratio 1.1 INR International Normalized Ratio 1.07 Activated Partial Thromboplast Time 29.7Sec Sodium Level 144mmol/L Potassium Level 5.3mmol/L Chloride Level 108mmol/L Carbon Dioxide Level 22mmol/L Anion Gap 19 Blood Urea Nitrogen 57mg/dl Creatinine 2.41mg/dl Glucose Level 135mg/dl Calcium Level 9.3mg/dl Total Bilirubin 0.7mg/dl Direct Bilirubin 0.00mg/dl Indirect Bilirubin 0.7mg/dl Aspartate Amino Transf (AST/SGOT) 40IU/L Alanine Aminotransferase (ALT/SGPT) 59IU/L Alkaline Phosphatase 94IU/L Troponin I 0.045ng/ml B-Type Natriuretic Peptide 5980PG/ML Total Protein 6.6g/dl Albumin 4.6g/dl Globulin 2.00g/dl Albumin/Globulin Ratio 2.30 Current Medications Medications (Trade) Dose Ordered Sig/Renato Route PRN Reason Start Time Stop Time Status Last Admin Dose Admin Albuterol (Proventil 0.5% (Neb)) 10 mg ONCE STAT INH 12/16/16 09:44 12/16/16 09:48 DC 12/16/16 10:16 Methylprednisolone Sodium Succinate 125 mg 125 mg ONCE STAT IV 12/16/16 09:44 12/16/16 09:48 DC 12/16/16 10:23 Cefepime HCl 50 ml @ 100 mls/hr ONCE STAT IVPB 12/16/16 10:50 12/16/16 11:19 DC 12/16/16 11:43 Vancomycin HCl (Vancocin) 250 ml @ 125 mls/hr ONCE STAT IVPB 12/16/16 10:50 12/16/16 12:49 DC Procedures/MDM EKG: Rate/Rhythm: Normal sinus rhythm, right axis deviation QRS, ST, QT: NORMAL IA, QRS, QT] Impression: NORMAL EKG PROCEDURE: XR Chest. CLINICAL INDICATION: Chest pain TECHNIQUE: Single frontal view of the chest was obtained COMPARISON: 08/23/1969 FINDINGS: The heart is enlarged. The thoracic aorta is calcified. There is a right lower lobe infiltrate and small right pleural effusion. There is no pneumothorax. RPTAT: AA IMPRESSION: Right lower lobe infiltrate and small right pleural effusion. Mild cardiomegaly. Calcified aorta consistent with atherosclerotic disease. .David Hughes MD, MD Date Time Electronically viewed and signed by .David Hughes MD, MD on 12/16/2016 10: 03 .S/ CC: SUSANA BABCOCK DO Patient received IV antibiotics and blood cultures. We will admit to the hospital for pulmonary therapy and antibiotic therapy Departure Diagnosis: Primary Impression: Pneumonia Qualified Code: J18.1 - Pneumonia of right lower lobe due to infectious organism Additional Impressions: COPD (chronic obstructive pulmonary disease) Qualified Code: J44.9 - Chronic obstructive pulmonary disease, unspecified COPD type CHF (congestive heart failure) Qualified Code: I50.9 - Congestive heart failure, unspecified congestive heart failure chronicity, unspecified congestive heart failure type Condition: Stable SUSANA BABCOCK A. DO Dec 16, 2016 14:01
[2016-12-16] MEDS ORDERED: HYDROCODONE/APAP (5/325) TAB PO PRN (16:00)
[2016-12-16] MEDS ORDERED: morphine 2 MG INJ IV PRN (16:00)
[2016-12-16] MEDS ORDERED: MAGNESIUM HYDROXIDE 30ML CUP PO PRN (16:00)
[2016-12-16] MEDS ORDERED: DOCUSATE SODIUM 100 MG CAP PO PRN (16:00)
[2016-12-16] MEDS ORDERED: NACL 0.9% 3 ML SYG IV SCH (16:00)
[2016-12-16] MEDS ORDERED: hydrALAzine 20 MG INJ IV PRN (16:00)
[2016-12-16] MEDS ORDERED: NITROGLYCERIN (SL) 0.4 MG TAB SL PRN (16:00)
[2016-12-16] MEDS ORDERED: NA PHOSPHATE/BIPHOS 133 ML ENEMA PR PRN (16:00)
[2016-12-16] MEDS ORDERED: DEXTROSE 50% 50 ML SYRINGE IV PRN ×2 (16:30)
[2016-12-16] MEDS ORDERED: GLUCOSE GEL 15 GRAM TUBE BUCCAL PRN (16:30)
[2016-12-16] MEDS ORDERED: GLUCOSE GEL 15 GRAM TUBE PO PRN ×2 (16:30)
[2016-12-16] MEDS ORDERED: GLUCAGON 1 MG INJ IM PRN (16:30)
[2016-12-16] MEDS ORDERED: LEVOFLOXACIN 750MG/D5W (PMX) 150 ML IVPB SCH (16:50)
[2016-12-16] MEDS: ALBUTEROL/IPRATROPIUM (NEB) 3 ML AMP HHN SCH ×2 (17:00→21:16)
[2016-12-16] MEDS ORDERED: LORAZEPAM 0.5 MG TAB PO PRN (17:00)
--- NOTE | 2016-12-16 17:08 | HP ---
DATE OF ADMISSION: 12/16/2016 This is a 71-year-old male. CHIEF COMPLAINT: Shortness of breath and cough. HISTORY OF PRESENT ILLNESS: A 71-year-old male with past medical history of COPD on home oxygen, ty pe 2 diabetes, essential hypertension, CAD, status post PCI x2, CHF, diastolic dysfunction, renal in sufficiency, hepatorenal syndrome, who presents with shortness of breath symptoms that have been goi ng on for the last few days. The patient also noticed some increased swelling in his lower extremit ies bilaterally. He has positive orthopnea and also shortness breath when he ambulates with slightl y decreased exercise tolerance. He also been having cough symptoms with occasional productive sputu m. No fevers or chills. No nausea, vomiting, no diarrhea, no constipation, no headaches, dizziness , or loss of consciousness. 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 Denies any significant chest pain. When he came into the ER today, he was found with elevated creatinine level s of 2.41. His ____ was slightly high at 5.3 and his BNP was elevated at 5900 as well. The patient was last here at our hospital from 08/20/2016 of 08/23/2016 at that time, he was treated for COPD a nd CHF exacerbation at that time as well. PAST MEDICAL HISTORY: As above. ALLERGIES: NO KNOWN DRUG ALLERGIES. MEDICATIONS AT HOME: 1. Effient 10 mg daily. 2. Lasix 40 mg daily. 3. K-Dur 10 mEq daily. 4. Symbicort 2 puffs inhaled b.i.d. 5. Metformin 1000 mg b.i.d. 6. Allopurinol 300 mg daily. 7. Amlodipine 10 mg daily. 8. Atorvastatin 20 mg at bedtime. 9. Hydralazine 50 mg q.8h. 10. Losartan 100 mg daily. 11. Toprol-XL 25 mg daily. 12. Aspirin 81 mg daily. PAST SURGICAL HISTORY: Again, he has had his PCI placement x2 in the past. He has also had a left carotid endarterectomy in the past and foot surgery in the past. FAMILY HISTORY: Mother had hypertension. SOCIAL HISTORY: Former smoker, apparently occasional alcohol use. Denies any IV drug abuse. PHYSICAL EXAMINATION: VITAL SIGNS: T-max 98.2, pulse 86 to 98, respirations 20 to 29, blood pressure is 131/90, saturatin g at 93% on 3 liters nasal cannula. GENERAL: The patient is sitting up in bed, answering questions appropriately, in mild distress but alert. HEENT: Pupils equal, round, react to light. Extraocular muscles intact. NECK: Supple, no thyromegaly. LUNGS: Decreased breath sounds, right greater than left with no rhonchi. CARDIOVASCULAR: S1, S2 heard. No rubs or gallops. ABDOMEN: Soft, nontender, nondistended. Normal bowel sounds. No rebound or guarding. MUSCULOSKELETAL: 3+ pitting edema bilateral lower extremities to the mid calves. NEUROLOGIC: No focal deficits. LABORATORIES: CBC is completely normal. Basic metabolic panel shows sodium 144, potassium 5.3, chl oride 108, CO2 22, BUN 57, creatinine 2.41, glucose 135. LFTs are normal. BNP is 5980. His chest x-ray today showed right lower lobe infiltrate and small right pleural effusion. ASSESSMENT: A 71-year-old male coming in with shortness of breath symptoms, likely secondary to chr onic obstructive pulmonary disease and congestive heart failure exacerbation along with renal insuff iciency. 1. Shortness of breath. Again secondary to combination of chronic obstructive pulmonary disease an d CHF. We will admit the patient to telemetry floor. We will get a cardiology consult, check TSH, A1c, lipid panel, get PT and OT consults, will put him on Solu-Medrol IV q.6h. DuoNeb q.4h. around the clock as well, give him IV Lasix for now, although cautiously given his elev ated creatinine. Monitor ins and outs, keep the head of the bed greater than 30 degrees. 2. Type 2 diabetes, check A1c, put him on sliding scale insulin. 3. Essential hypertension. Again, continue current cardiac medications. Blood pressure is present ly stable. Hydralazine p.r.n. 4. History of coronary artery disease status post stent in the past. Continue aspirin and Effient. Will get a cardiology consult as well. May need to have a repeat echocardiogram performed. Histo ry of chronic obstructive pulmonary disease, see #1. Again, breathing treatments and steroids. 5. History of hepatorenal syndrome. Again, will get a renal consult. Monitor ins and outs as well . 6. Gastrointestinal prophylaxis. He will be on Protonix. 7. Deep venous thrombosis prophylaxis, heparin subcu. Dictated By: FLY RAMIREZ Conf#: [id number] DID#: [id number]
--- NOTE | 2016-12-16 17:29 | CONS ---
DATE OF ADMISSION: 12/16/2016 DATE OF CONSULTATION: 12/16/2016 TYPE OF CONSULTATION: Cardiology. REFERRING PHYSICIAN: Dr. Peres. REASON FOR CONSULTATION: Congestive heart failure, coronary artery disease. CHIEF COMPLAINT: Shortness of breath. HISTORY OF PRESENT ILLNESS: Thank you for this referral. History obtained from the patient, allyssa de santiago review of the chart, review of the old chart, discussion with Dr. Peres and the staff. This is a pleasant 71-year-old gentleman with history of severe coronary artery disease, multivessel coronary artery disease, status post multivessel stenting in March 2016 with reportedly known chronic to harry occlusion of the right coronary artery and recent AR in August, history of severe COPD, who ca me to emergency room with complaint. Patient was supposed to see his chief clerk, who has been fee ling increasing shortness of breath, which may limit his activity. Also, has been coughing over the past few days. Denies any chest pain or pressure to me. Denies any palpitation to me. He has bee n admitted for COPD/pneumonia as well as congestive heart failure exacerbation. We were kindly aske d to evaluate. PAST MEDICAL HISTORY: History of coronary artery disease. Review of the old chart showed the patie nt has had an angioplasty of the left circumflex artery and LAD done in 2015. At that time, he was noted to have multivessel disease including chronic total occlusion of right coronary artery, but fe lt not to be a candidate for bypass surgery due to his pulmonary disease. History of severe COPD, h ypertension, diabetes, dyslipidemia. History of renal failure. History of congestive heart failure secondary to diastolic dysfunction, lower extremity edema. SOCIAL HISTORY: The patient quit smoking many years ago. FAMILY HISTORY: No reported coronary artery disease. ALLERGIES: NO REPORTED ALLERGIES. MEDICATIONS: As per medication reconciliation, which was personally reviewed. REVIEW OF SYSTEMS: Negative except for above-mentioned. PHYSICAL EXAMINATION: VITAL SIGNS: Temperature 97.6, heart rate of 100, blood pressure 140/90, respiration rate of 18, sa turating 95%. HEENT: Normocephalic, atraumatic. Pupils are equal. NECK: Supple. Positive for JVD. CARDIOVASCULAR: Regular rate and rhythm, systolic murmur. PULMONARY: Anteriorly with no wheezes, minimal rhonchi at the base. GASTROINTESTINAL: Soft, nontender. EXTREMITIES: Diffuse 3 to 4+ bilateral lower extremity edema. NEUROLOGIC: Awake and alert. PSYCHIATRIC: Appears to be calm and pleasant. DIAGNOSTIC DATA: The EKG was personally reviewed, showed normal sinus rhythm with ST-T abnormalitie s, inferolateral ischemia. LABORATORY: WBC of 6.3, hemoglobin 14, platelets 217. Sodium 144, potassium 5.3, BUN of 57, creati nine 2.51, glucose 135. ProBNP of 5980. Troponin 0.045. Albumin is 4.6. Chest x-ray was personal ly reviewed, which shows right lower lobe infiltrate, small right pleural effusion. Review of the o ld chart showed echocardiogram done in 08/2015 showed normal ejection fraction of 60%. Echocardiogr am in August 2016 shows again normal ejection fraction with pulmonary hypertension, PA pressure of 50 mmHg. ASSESSMENT AND PLAN: 1. Hypoxemia ____ respiratory failure. 2. Pneumonia. 3. Chronic obstructive pulmonary disease exacerbation. 4. Congestive heart failure, acute on chronic, secondary to diastolic dysfunction, history of coron flor artery disease. History of multiple percutaneous coronary interventions. 5. Renal failure, acute on chronic. 6. Dyslipidemia. 7. Hypertension. 8. Diabetes. RECOMMENDATIONS: ____ including aspirin and Effient will be continued. Beta lory will be contin ued for now. Patient has not been placed on ANTOINETTE inhibitor due to his renal failure. I will continu e with the IV Lasix once a day for now and adjust it as needed. Hydralazine will be continued. Pul monary care. Antibiotic as per internal medicine. Continue to monitor on telemetry. I have left a message for patient's chief clerk, Dr. Fox, awaiting the response as well. Thank you for this referral. We will continue to follow along with you. Dictated By: LEELEE BROWN/JOVANNY Conf#: [id number] DID#: [id number]
[2016-12-16] MEDS: FUROSEMIDE 40 MG INJ IV SCH (18:02)
[2016-12-16] MEDS: METHYLPREDNISOLONE 125 MG INJ IV SCH ×2 (18:03→23:28)
[2016-12-16] MEDS: INSULIN ASPART [NOVOLOG] 3 ML PEN SC SCH ×2 (18:31→20:39)
--- NOTE | 2016-12-16 19:24 | CONS ---
DATE OF ADMISSION: 12/16/2016 DATE OF CONSULTATION: 12/16/2016 TYPE OF CONSULTATION: Nephrology. REFERRING PHYSICIAN: Ezequiel Dominguez MD/ Arsenio Peres REASON FOR CONSULTATION: Acute kidney injury versus acute kidney injury on chronic kidney disease. HISTORY OF PRESENT ILLNESS: This is a 71-year-old male with a past medical history of diabetes mellitus, essential hypertension, coronary artery disease, status post PCI x2, CHF with diastolic dysfunction, history of chronic kidney disease, possibly secondary to congestive heart failure and diabetic nephropathy , presented with a complaint of shortness of breath and cough which has been going on for the last 2 days. The patient also recently noticed increased swelling in his lower extremities bilaterally. He presented to the [facility] Emergency Room where he had a chest x-ray showing pulmonary vascular congestion, his BNP was elevated with 5900. The patient was recently admitted at [facility] 08/20/2016 to 08/23/2016 for COPD and congestive heart failure exacerbation. At this time, he had a BUN of 57, creatinine of 2.4. On the previous admissions , he was discharged with a creatinine of 1.22 on 08/23/2016. REVIEW OF SYSTEMS: Positive for shortness of breath, cough, lower extremity swelling. Other review of systems has been obtained and is negative except what is mentioned in history of present illness. PAST MEDICAL HISTORY: 1. Notable for hypertension, type 2 diabetes mellitus, history of coronary artery disease, status post PCI x2. 2. History of congestive heart failure with diastolic dysfunction. 3. History of chronic kidney disease, possibly secondary to diabetic nephropathy and CHF. ALLERGIES: NO KNOWN DRUG ALLERGIES. HOME MEDICATIONS: Have been reviewed and include: 1. Metformin. 2. Allopurinol. 3. Losartan. 4. Toprol-XL. PAST SURGICAL HISTORY: The patient had a previous cardiac catheterization with PCI with stent placement x2, history of left carotid endarterectomy in the past and foot surgery in the past. FAMILY HISTORY: Mother had hypertension. SOCIAL HISTORY: The patient is a former smoker, apparently does not use alcohol. Denies any recreational drug use. PHYSICAL EXAMINATION: VITAL SIGNS: Temperature 98.7, heart rate 75, respiration 19, blood pressure 135/89, saturation 92% to 95% on 3 liters nasal cannula. GENERAL: Awake, alert, mild to moderate distress due to his hypoxia and shortness of breath. HEENT: Pupils equal, round, reactive to light and accommodation. Extraocular muscles are intact. NECK: Supple, jugular venous distention up to the mid neck. No lymphadenopathy. LUNGS: Bibasilar rales present/crackles present. HEART: S1, S2, with regular rhythm, no murmur. ABDOMEN: Soft, nontender, nondistended. Bowel sounds are present. EXTREMITIES: 1 to 2+ pitting edema, no clubbing, no cyanosis. PSYCHIATRIC: Appropriate affect and mood. LABORATORY DATA/DIAGNOSTIC IMAGING: Sodium 144, potassium 5.2, chloride 102, bicarbonate 22, BUN 57, creatinine 2.4, glucose 135, calcium 9.3. LFTs are normal. BNP 5980. PT 13.9, PTT 29.7, INR 1.07. WBC 6.3, hemoglobin 14, platelet count 217. Chest x-ray shows right lower lobe infiltrate, small right pleural effusions, mild cardiomegaly and calcified aorta consistent with atherosclerotic disease. IMPRESSION: This is a 71-year-old male who is getting admitted for acute COPD and CHF exacerbations and nephrology was consulted for acute kidney injury on chronic kidney disease. IMPRESSION: 1. Acute kidney injury on chronic kidney disease secondary to hemodynamics from CHF and also possibly secondary to diastolic heart failure. 2. Acute chronic obstructive pulmonary disease exacerbation. 3. Acute congestive heart failure exacerbation, acute on chronic, diastolic dysfunction. 4. History of chronic kidney disease secondary to diabetes, hypertension and congestive heart failure. 5. Hypertension. 6. Hyperlipidemia. 7. Mild Hyperkalemia PLAN: Thank you, Dr. Peres, for this consultation. I will stop the Losartan due to the rising BUN and creatinine, continue the Lasix diuresis with Lasix 40 mg IV daily. Patient already received a high dose of Lasix today. 1. Solu-Medrol IV for COPD exacerbation. Kayexalate 15 gram PO x 1 dose now 2. The patient has been started on IV antibiotics, Levaquin and vancomycin for his right basilar infiltrates. 3. Continue to hold ANTOINETTE inhibitors and ARB at this point due to the rising BUN and creatinine. 4. The patient previously had a full CKD workup done on last admission and also had renal ultrasounds done, so no need to repeat renal ultrasound at this time. 5. I am expecting the patient's creatinine to improve with IV fluid hydration. I will continue to follow this patient along with cardiology and the primary care service. Patient is currently seen on the telemetry floor. Total time spent in this patient's consultation making assessment and plan, communicating with the patient and family at bedside and communicating with the nursing staff took more than 60 minutes. Dictated By: LUBNA TAVARES MD, KP/JOAVNNY Conf#: [id number] DID#: [id number] MTDD
[2016-12-16] MEDS ORDERED: NA POLYST SULFON 15 GM/60 ML BTL PO ONE (19:30)
[2016-12-16] MEDS: ATORVASTATIN 20 MG TAB PO SCH (20:34)
[2016-12-16] MEDS: SALMETEROL/FLUTICASONE 250/50 INHA INH SCH (20:35)
[2016-12-16] MEDS: HEPARIN 5,000 UNIT/0.5 ML VIAL SC SCH (20:44)
[2016-12-17] VITALS (11 sets, daily range): BP systolic 120–142; BP diastolic 75–83; PULSE 99–115; RESP 19–20
[2016-12-17] MEDS: INSULIN ASPART [NOVOLOG] 3 ML PEN SC SCH ×3 (00:38→08:44)
[2016-12-17] MEDS: ALBUTEROL/IPRATROPIUM (NEB) 3 ML AMP HHN SCH ×6 (00:47→21:15)
[2016-12-17] MEDS: METHYLPREDNISOLONE 125 MG INJ IV SCH ×3 (05:58→17:26)
[2016-12-17] MEDS: PANTOPRAZOLE (EC) 40 MG TAB PO SCH (05:58)
[2016-12-17 07:32] LABS: ADD SCAN DIFF NO
[2016-12-17 07:39] LABS: ABNORMAL IP MESSAGE 1; HEMATOCRIT 38.3 % (42.0-52.0); HEMOGLOBIN 12.6 g/dl (14.0-18.0); LYMPHOCYTES # 0.3 10^3/ul (0.8-2.9); LYMPHOCYTES % 6.3 % (15.0-51.0); MEAN CORPUSCULAR HEMOGLOBIN 29.8 pg (29.0-33.0); MEAN CORPUSCULAR HGB CONC 32.9 g/dl (32.0-37.0); MEAN CORPUSCULAR VOLUME 90.5 fl (82.0-101.0); MEAN PLATELET VOLUME 11.4 fl (7.4-10.4); MONOCYTE # 0.1 10^3/ul (0.3-0.9); NEUTROPHIL # 4.7 10^3/ul (1.6-7.5); NEUTROPHILS % 91.9 % (39.0-77.0); PLATELET COUNT 182 10^3/UL (140-415); RED BLOOD COUNT 4.23 10^6/ul (4.70-6.10); RED CELL DISTRIBUTION WIDTH 14.9 % (11.5-14.5); WHITE BLOOD COUNT 5.1 10^3/ul (4.8-10.8)
[2016-12-17 08:16] LABS: CALCIUM 9.3 mg/dl (8.4-10.2); CHOL/HDL RATIO 2.8 RATIO; CREATININE 1.75 mg/dl (0.61-1.24); MAGNESIUM 1.3 mg/dl (1.7-2.5); PHOSPHORUS 4.6 mg/dl (2.5-4.9); POTASSIUM 4.2 mmol/L (3.5-5.1)
[2016-12-17 08:39] LABS: THYROID STIMULATING HORMONE 0.743 MIU/L (0.465-4.680)
[2016-12-17] MEDS: PRASUGREL HYDROCHLORIDE 10 MG TABLET PO SCH (10:06)
[2016-12-17] MEDS: ALLOPURINOL 300 MG TAB PO SCH (10:06)
[2016-12-17] MEDS: SALMETEROL/FLUTICASONE 250/50 INHA INH SCH ×2 (10:06→21:26)
[2016-12-17] MEDS: ASPIRIN (EC) 81 MG TAB PO SCH (10:07)
[2016-12-17] MEDS: METOPROLOL (XL) 25 MG TAB PO SCH (10:08)
[2016-12-17] MEDS: FUROSEMIDE 40 MG INJ IV SCH (10:08)
--- NOTE | 2016-12-17 10:19 | RADRPT ---
Echocardiogram Report Patient Name: PRAVEENA ROMANO Gender: Male Date: 1945 Study Date: 17-Dec-2016 Manager Baby: Rashaun Goins RDCS Location: [facility] Ref. Physician: LEELEE SWANSON Quality: Good Procedures: Transthoracic echocardiogram with complete 2D, M-Mode, and doppler examination. Indications: Congestive Heart Failure. Coronary Artery Disease. 2D/M Mode Doppler Measurement Value Normal Ranges Measurement Value Normal Ranges LVIDd 2D 4.3 3.5 - 5.6 cm INEZ Vmax 1.5 cm2 LVIDs 2D 1.9 2.1 - 4.1 cm INEZ VTI 2.0 cm2 FS 2D 55.8 % AV Mean Jaya 1.5 m/sec LVPWd 2D 1.0 0.6 - 1.1 cm AV Mean PG 11.0 mmHg IVSd 2D 1.1 0.6 - 1.1 cm AV Peak Jaay 2.3 m/sec IVS/LVPW 2D 1.1 AV Peak PG 21.0 mmHg AoR Diam 2D 2.8 2.0 - 3.7 cm AV VTI 32.5 cm LA/Ao 2D 1 0 - 1 LVOT Mean Jaya 0.7 m/sec EDV 2D 81.7 cm3 LVOT Mean PG 3.0 mmHg ESV 2D 7.1 cm3 LVOT Peak Jaya 1.2 m/sec LA Dimen 2D 3.0 2.3 - 4.0 cm LVOT Peak PG 6.0 mmHg LVOT Diam 1.9 cm LVOT VTI 22.3 cm LVOT Area 2.8 cm2 TR Peak Jaya 4.6 m/sec TR Peak PG 86.0 mmHg RVSP 101.0 mmHg Findings Left Ventricle: Hyperdynamic left ventricular systolic function. Normal left ventricular cavity size. Mild concentric left ventricular hypertrophy. Ejection fraction is visually estimated at 70 %. Right Ventricle: Severe right ventricular systolic dysfunction. Severe enlargement of right ventricle. Flattened septum in systole and diastole consistent with increased RV pressure and volume overload. Left Atrium: The left atrium is normal in size. Right Atrium: There is severe enlargement of right atrium. Mitral Valve: Mitral valve leaflets appear mildly thickened. Mild mitral annular calcification. Trace mitral regurgitation. Aortic Valve: Aortic valve Max velocity 2.28 m/sec. Max PG 21.00 mmHg. Mean PG 11.00 mmHg. Aortic valve area 1.95 cm2. Aortic sclerosis without stenosis. Non coronary cusp appears moderately calcified. Trileaflet aortic valve. Trace aortic valve regurgitation. Tricuspid Valve: Estimated peak PA systolic pressure 101 mmHg. Tricuspid valve appears mildly thickened. There is severe tricuspid regurgitation. Pulmonic Valve: Normal pulmonic valve appearance. Pericardium: Normal pericardium with no significant pericardial effusion. Aorta: Normal aortic root. IVC: Dilated IVC without respiratory collapse consistent with elevated right atrial pressure. Conclusions 1.Hyperdynamic left ventricular systolic function. Normal left ventricular cavity size. Mild concentric left ventricular hypertrophy. Ejection fraction is visually estimated at 70 %. 2.Severe right ventricular systolic dysfunction. Severe enlargement of right ventricle. Flattened septum in systole and diastole consistent with increased RV pressure and volume overload. 3.There is severe enlargement of right atrium. 4.Mitral valve leaflets appear mildly thickened. Mild mitral annular calcification. Trace mitral regurgitation. 5.Aortic valve Max velocity 2.28 m/sec. Max PG 21.00 mmHg. Mean PG 11.00 mmHg. Aortic valve area 1.95 cm2. Aortic sclerosis without stenosis. Non coronary cusp appears moderately calcified. Trileaflet aortic valve. Trace aortic valve regurgitation. 6.Estimated peak PA systolic pressure 101 mmHg. Tricuspid valve appears mildly thickened. There is severe tricuspid regurgitation. 7.Dilated IVC without respiratory collapse consistent with elevated right atrial pressure. Electronically Signed By: Leelee Swanson 17-Dec-2016 10:19:08 -0700 Patient Name: PRAVEENA ROMANO Study Date: 17-Dec-2016 [id number]
[2016-12-17] MEDS: HEPARIN 5,000 UNIT/0.5 ML VIAL SC SCH ×2 (10:42→21:29)
--- NOTE | 2016-12-17 12:18 | PN ---
Date/Time of Note Date/Time of Note DATE: 12/17/16 TIME: 12:12 Assessment/Plan VTE Prophylaxis VTE Prophylaxis Intervention: heparin Lines/Catheters IV Catheter Type (from [facility]): [facility] Urinary Cath still in place: No Assessment/Plan Chief Complaint/Hosp Course ASSESSMENT/PLAN: 71-year-old male coming in with shortness of breath symptoms, likely secondary to chronic obstructive pulmonary disease and congestive heart failure exacerbation along with renal insufficiency. 1. Shortness of breath. Again secondary to combination of chronic obstructive pulmonary disease and CHF - improving - f/u cardiology consult, PT and OT consults as well, will put him on Solu- Medrol IV q.6h. - continue DuoNeb q.4h. around the clock, IV Lasix for now, although cautiously given his elevated creatinine. - Monitor ins and outs, keep the head of the bed greater than 30 degrees. 2. Type 2 diabetes - A1c = 7.4, - continue sliding scale insulin. 3. Essential hypertension. Again, continue current cardiac medications. Blood pressure is presently stable. Hydralazine p.r.n. 4. History of coronary artery disease status post stent in the past. - Continue aspirin and Effient. - f/u cardiology consult rec's. See echocardiogram results below. 5. History of chronic obstructive pulmonary disease, see #1. Again, breathing treatments and steroids. 6. History of hepatorenal syndrome - f/u renal consult rec's, monitor Cr, Monitor ins and outs as well. 7. Gastrointestinal prophylaxis -Protonix. 8. Deep venous thrombosis prophylaxis, heparin subcu. Problems: Subjective 24 Hr Interval Summary Free Text/Dictation Pt has less SOB, had ECHo performed, and seen by CV and renal teams. Exam/Review of Systems Vital Signs Vitals Vital Signs Date Time Temp Pulse Resp B/P Pulse Ox O2 Delivery O2 Flow Rate FiO2 12/17/16 12:00 115 12/17/16 11:34 18 91 Nasal Cannula 3.0 12/17/16 11:06 97.9 130/81 Intake and Output 12/16/16 12/16/16 12/17/16 15:00 23:00 07:00 Intake Total 50 ml 300 ml 120 ml Output Total 700 ml Balance 50 ml 300 ml -580 ml Exam GENERAL: The patient is sitting up in bed, answering questions appropriately, in mild distress but alert. HEENT: Pupils equal, round, react to light. Extraocular muscles intact. NECK: Supple, no thyromegaly. LUNGS: less decreased breath sounds, no rhonchi. CARDIOVASCULAR: S1, S2 heard. No rubs or gallops. ABDOMEN: Soft, nontender, nondistended. Normal bowel sounds. No rebound or guarding. MUSCULOSKELETAL: 1+ pitting edema bilateral lower extremities to the mid calves. NEUROLOGIC: No focal deficits. Results Result Diagram: 12/17/16 0612/17/16 0600 Results 24 hrs Laboratory Tests Test 12/16/16 17:01 12/16/16 20:33 12/17/16 00:32 12/17/16 05:07 Bedside Glucose 193 277 H 175 212 Test 12/17/16 06:00 12/17/16 08:31 White Blood Count 5.1 Red Blood Count 4.23 L Hemoglobin 12.6 L Hematocrit 38.3 L Mean Corpuscular Volume 90.5 Mean Corpuscular Hemoglobin 29.8 Mean Corpuscular Hemoglobin Concent 32.9 Red Cell Distribution Width 14.9 H Platelet Count 182 Mean Platelet Volume 11.4 H Neutrophils % 91.9 H Lymphocytes % 6.3 L Monocytes % 1.0 Eosinophils % 0.0 Basophils % 0.0 Nucleated Red Blood Cells % 0.0 Neutrophils # 4.7 Lymphocytes # 0.3 L Monocytes # 0.1 L Eosinophils # 0.0 Basophils # 0.0 Nucleated Red Blood Cells # 0.0 Sodium Level 144 Potassium Level 4.2 Chloride Level 110 Carbon Dioxide Level 19 L Anion Gap 19 H Blood Urea Nitrogen 56 H Creatinine 1.75 H Glucose Level 208 Hemoglobin A1c 7.4 H Calcium Level 9.3 Phosphorus Level 4.6 Magnesium Level 1.3 L Triglycerides Level 66 Cholesterol Level 123 LDL Cholesterol, Calculated 67 HDL Cholesterol 43 Cholesterol/HDL Ratio 2.8 Thyroid Stimulating Hormone (TSH) 0.743 Bedside Glucose 230 H Medications Medications Current Medications Ondansetron HCl (Zofran Inj) 4 mg Q6H PRN IV NAUSEA AND/OR VOMITING; Start 12/16 at 16:00 Acetaminophen (Tylenol Tab) 650 mg Q6H PRN PO PAIN LEVEL 1-3 OR FEVER; Start at 16:00 Acetaminophen/ Hydrocodone Bitart (Groom (5/325)) 1 tab Q6H PRN PO MODERATE PAIN LEVEL 4-6; Start 12/16/16 at 16:00 Morphine Sulfate (morphine) 2 mg Q4H PRN IV SEVERE PAIN LEVEL 7-10; Start at 16:00 Docusate Sodium (Colace) 100 mg Q12H PRN PO CONSTIPATION; Start 12/16/16 at 16: 00 Magnesium Hydroxide (Milk Of Mag) 30 ml DAILY PRN PO CONSTIPATION; Start at 16:00 Sodium Biphosphate/ Sodium Phosphate (Fleet Enema) 133 ml DAILY PRN LA CONSTIPATION; Start 12/16/16 at 16:00 Pantoprazole (Protonix Tab) 40 mg DAILY@06 PO Last administered on 12/17/16 05: 58; Admin Dose 40 MG; Start 12/17/16 at 06:00 Heparin Sodium (Porcine) (Heparin (5000 Units/0.5 ml)) 5,000 unit Q12 SC Last administered on 12/17/16 10:42; Admin Dose 5,000 UNIT; Start 12/16/16 at 21:00 Lorazepam (Ativan) 0.5 mg Q6H PRN PO ANXIETY; Start 12/16/16 at 17:00 Hydralazine HCl (Apresoline) 10 mg Q6H PRN IV ELEVATED BLOOD PRESSURE; Start at 16:00 Nitroglycerin (Nitroglycerin (Sl Tab) 0.4 Mg) 1 tab Q5M PRN SL ANGINA; Start at 16:00 Allopurinol (Zyloprim) 300 mg DAILY PO Last administered on 12/17/16 10:06; Admin Dose 300 MG; Start 12/17/16 at 09:00 Aspirin (Halfprin) 81 mg DAILY PO Last administered on 12/17/16 10:07; Admin Dose 81 MG; Start 12/17/16 at 09:00 Atorvastatin Calcium (Lipitor) 20 mg QHS PO Last administered on 12/16/16 20:34 ; Admin Dose 20 MG; Start 12/16/16 at 21:00 Hydralazine HCl (Apresoline) 50 mg Q8 PO Last administered on 12/17/16 05:58; Admin Dose 50 MG; Start 12/16/16 at 22:00 Metoprolol Succinate (Toprol Xl) 25 mg DAILY PO Last administered on 12/17/16 10:08; Admin Dose 25 MG; Start 12/17/16 at 09:00 Salmeterol Xinafoate/ Fluticasone (Advair 250/50 Diskus) 1 inh BID INH Last administered on 12/17/16 10:06; Admin Dose 1 INH; Start 12/16/16 at 21:00 Methylprednisolone Sodium Succinate (Solu-Medrol) 80 mg Q6 IV Last administered on 12/17/16 05:58; Admin Dose 80 MG; Start 12/16/16 at 18:00 Furosemide (Lasix) 40 mg DAILY IV Last administered on 12/17/16 10:08; Admin Dose 40 MG; Start 12/16/16 at 16:00 Prasugrel (Effient) 10 mg DAILY PO Last administered on 12/17/16 10:06; Admin Dose 10 MG; Start 12/17/16 at 09:00 Insulin Aspart (Novolog Insulin Pen) NOVOLOG *MILD* ALGORI... Q4 SC Last administered on 12/17/16 08:44; Admin Dose 3 UNIT; Start 12/16/16 at 17:00 Miscellaneous Information 1 ea NOTE XX ; Start 12/16/16 at 16:30 Glucose (Glutose) 15 gm Q15M PRN PO DECREASED GLUCOSE; Start 12/16/16 at 16:30 Glucose (Glutose) 22.5 gm Q15M PRN PO DECREASED GLUCOSE; Start 12/16/16 at 16:30 Dextrose (D50w Syringe) 25 ml Q15M PRN IV DECREASED GLUCOSE; Start 12/16/16 at 16:30 Dextrose (D50w Syringe) 50 ml Q15M PRN IV DECREASED GLUCOSE; Start 12/16/16 at 16:30 Glucagon (Glucagen) 1 mg Q15M PRN IM DECREASED GLUCOSE; Start 12/16/16 at 16:30 Glucose 15 gm 15 gm Q15M PRN BUCCAL DECREASED GLUCOSE; Start 12/16/16 at 16:30 Levofloxacin/ Dextrose 100 ml @ 100 mls/hr Q48H IVPB ; Start 12/18/16 at 17:00 Magnesium Sulfate/ Sodium Chloride (Magnesium Sulfate/NS) 106 ml @ 35.333 mls/ hr ONCE ONCE IVPB ; Start 12/17/16 at 13:30; Stop 12/17/16 at 16:29 Procedures Procedures 2D ECHO Conclusions 1. Hyperdynamic left ventricular systolic function. Normal left ventricular cavity size. Mild concentric left ventricular hypertrophy. Ejection fraction is visually estimated at 70 %. 2. Severe right ventricular systolic dysfunction. Severe enlargement of right ventricle. Flattened septum in systole and diastole consistent with increased RV pressure and volume overload. 3. There is severe enlargement of right atrium. 4. Mitral valve leaflets appear mildly thickened. Mild mitral annular calcification. Trace mitral regurgitation. 5. Aortic valve Max velocity 2.28 m/sec. Max PG 21.00 mmHg. Mean PG 11.00 mmHg. Aortic valve area 1.95 cm2. Aortic sclerosis without stenosis. Non coronary cusp appears moderately calcified. Trileaflet aortic valve. Trace aortic valve regurgitation. 6. Estimated peak PA systolic pressure 101 mmHg. Tricuspid valve appears mildly thickened. There is severe tricuspid regurgitation. 7. Dilated IVC without respiratory collapse consistent with elevated right atrial pressure. FLY BROTHERS. Dec 17, 2016 12:18
--- NOTE | 2016-12-17 12:37 | PN ---
DATE: 12/17/2016 CARDIOLOGY FOLLOWUP SUBJECTIVE: Discussed with the staff. Discussed with pulmonary. The patient still has shortness o f breath. No chest pain or pressure. Breathing better. MEDICATIONS: Reviewed, which include: 1. Levofloxacin. 2. Aspirin. 3. Toprol 25. 4. Effient. 5. Hydralazine. 6. Lipitor. 7. Advair. 8. Solu-Medrol. PHYSICAL EXAMINATION VITAL SIGNS: Temperature 97.9, heart rate 113, blood pressure 130/81, respiratory rate of 18, satur ating 91%. HEENT: Normocephalic, atraumatic. Appears in moderate respiratory distress. CARDIOVASCULAR: Tachycardic. PULMONARY: With no wheezes, mild rhonchi. GASTROINTESTINAL: Soft, nontender. EXTREMITIES: With decreased lower extremity edema. NEUROLOGIC: Awake and alert. PSYCHIATRIC: Appears to be calm, pleasant. LABORATORY DATA: WBC of 5.1, hemoglobin 12.6, platelet 182. Sodium 144, potassium 4.2, BUN of 56, creatinine 1.75, glucose of 208. LDL 67, HDL 43. TSH is 0.7. Echocardiogram was personally reviewed, showed normal LV size and systolic function, ejection fracti on is about 70%. However, right-sided chambers are severely dilated with severe pulmonary hypertens ion. PA pressure estimated about 100 mmHg with severe tricuspid insufficiency and dilated IVC. ASSESSMENT AND PLAN: 1. Severe pulmonary hypertension. 2. Hypoxemic, hypercapnic respiratory failure. 3. Possible pneumonia. 4. Chronic obstructive pulmonary disease. 5. congestive heart failure secondary to diastolic dysfunction. 6. History of coronary artery disease, status post percutaneous coronary intervention of left anter ior descending and left circumflex artery with chronic total occlusion right coronary artery. 7. Hypertension. 8. Diabetes. 9. Renal insufficiency, chronic. RECOMMENDATIONS: We will repeat cardiac enzymes including troponins. Follow renal function. I hav e asked from pulmonary to see and evaluate the patient as well. Continue with the current diuretic dose and monitor closely. Continue on telemetry. Dictated By: LEELEE BARROS MD AV/NTS Conf#: [id number] DID#: [id number] CC: LUBNA TAVARES MD;*EndCC*
--- NOTE | 2016-12-17 12:52 | CONS ---
Date/Time of Note Date/Time of Note DATE: 12/17/16 TIME: 12:44 Assessment/Plan Assessment/Plan Additional Assessment/Plan Chest x-ray was reviewed from yesterday which is essentially unremarkable except for flattening of diaphragms indicative of underlying emphysema. 2D echocardiogram showing severe right ventricular dilatation with evidence of severe underlying pulmonary hypertension. Assessment recommendations; 1. Patient admitted with right ventricular failure with lower extremity edema with interval improvement. 2. Difficult to rule out underlying chronic thromboembolic disease causing severe pulmonary hypertension. 3. Underlying coronary artery disease patient on nitrates on a as needed basis. 4. Renal insufficiency. 5. Hypertension and diabetes. 6. COPD. 7. 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 Because of underlying renal insufficiency patient cannot get chest CT that would severely limit further evaluation. Patient also cannot get any phosphodiesterase inhibitors for relief of underlying pulmonary hypertension because of ongoing requirement for nitrates. Continue current treatment. Patient may benefit from a empiric administration of apixaban or Xarelto on a long-term basis. Consultation Date/Type/Reason Admit Date/Time Dec 16, 2016 at 13:57 Date of Consultation: Dec 17, 2016 Type of Consultation: Pulmonary Reason for Consultation Pulmonary consultations requested for evaluation of shortness of breath. History of presenting any; patient is a pleasant 71-year-old oriental gentleman who was admitted yesterday with complaints of being short of breath as well as with complaints of lower extremity swelling for the last several weeks. According the patient he does get short of breath upon minimal exertion which has been a chronic complaint patient however denies any chest pain, wheezing, sputum production or any hemoptysis. Upon evaluation further workup was done including echocardiogram which is showing severe right ventricular strain pattern with evidence of severe underlying pulmonary hypertension. Started function is normal. The patient has improved since admission and according to him shortness of breath as well as lower extremity edema is substantially improved. Past medical history; next 1. History of COPD 2. History of coronary artery disease status post stenting. 3. History of left carotid endarterectomy next #4. Diabetes. 5. Hypertension. 6. History of renal insufficiency. Medications; reviewed. Allergies; none. Social history; patient has been a heavy smoker in the past. Most of alcohol or drug abuse. Family history; he is , he has 3 children. No history of any significant illnesses in the family. 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 Next Review systems; denies any headache, visual changes, sinus symptoms. Denies any chest pain, angina wheezing. Denies any cough or hemoptysis. Does complain of chronic shortness of breath upon exertion. Has lost some weight recently. Lower extremity edema is improving. Complains of mild chronic orthopnea. Denies any GI or urinary symptoms. Denies any skin changes. General exam; elderly male, awake alert currently in no distress. Past Surgical History Past Surgical Hx: angioplasty Social History Smoking Status: Former smoker Exam/Review of Systems Vital Signs Vitals Vital Signs Date Time Temp Pulse Resp B/P Pulse Ox O2 Delivery O2 Flow Rate FiO2 12/17/16 12:00 115 12/17/16 11:34 18 91 Nasal Cannula 3.0 12/17/16 11:06 97.9 130/81 Intake and Output 12/16/16 12/16/16 12/17/16 15:00 23:00 07:00 Intake Total 50 ml 300 ml 120 ml Output Total 700 ml Balance 50 ml 300 ml -580 ml Exam HEENT examination; supple neck, positive JVD. No lymphadenopathy. Midline trachea. No thyromegaly. Pupils are midsize and reactive to light. Patient is edentulous and wears dentures. No neck bruits. There is a well-healed left carotid scar. Chest examination; diminished but clear vessel. No added sound. S1-S2 audible , no murmurs. Regular rhythm. No gallop. Abdomen examination; soft, nondistended. No organomegaly. Bowel sounds audible. Extremity examination; 1+ peripheral edema. Pulses 1+ bilaterally. No clubbing. WOOL DYER examination; cranial nerves are grossly intact there is no motor deficit. Results Result Diagram: 12/17/16 0600 12/17/16 0600 Results 24 hrs Laboratory Tests Test 12/16/16 17:01 12/16/16 20:33 12/17/16 00:32 12/17/16 05:07 Bedside Glucose 193 277 H 175 212 Test 12/17/16 06:00 12/17/16 08:31 White Blood Count 5.1 Red Blood Count 4.23 L Hemoglobin 12.6 L Hematocrit 38.3 L Mean Corpuscular Volume 90.5 Mean Corpuscular Hemoglobin 29.8 Mean Corpuscular Hemoglobin Concent 32.9 Red Cell Distribution Width 14.9 H Platelet Count 182 Mean Platelet Volume 11.4 H Neutrophils % 91.9 H Lymphocytes % 6.3 L Monocytes % 1.0 Eosinophils % 0.0 Basophils % 0.0 Nucleated Red Blood Cells % 0.0 Neutrophils # 4.7 Lymphocytes # 0.3 L Monocytes # 0.1 L Eosinophils # 0.0 Basophils # 0.0 Nucleated Red Blood Cells # 0.0 Sodium Level 144 Potassium Level 4.2 Chloride Level 110 Carbon Dioxide Level 19 L Anion Gap 19 H Blood Urea Nitrogen 56 H Creatinine 1.75 H Glucose Level 208 Hemoglobin A1c 7.4 H Calcium Level 9.3 Phosphorus Level 4.6 Magnesium Level 1.3 L Triglycerides Level 66 Cholesterol Level 123 LDL Cholesterol, Calculated 67 HDL Cholesterol 43 Cholesterol/HDL Ratio 2.8 Thyroid Stimulating Hormone (TSH) 0.743 Bedside Glucose 230 H Medications Medications Current Medications Ondansetron HCl (Zofran Inj) 4 mg Q6H PRN IV NAUSEA AND/OR VOMITING; Start 12/16 at 16:00 Acetaminophen (Tylenol Tab) 650 mg Q6H PRN PO PAIN LEVEL 1-3 OR FEVER; Start at 16:00 Acetaminophen/ Hydrocodone Bitart (Helm (5/325)) 1 tab Q6H PRN PO MODERATE PAIN LEVEL 4-6; Start 12/16/16 at 16:00 Morphine Sulfate (morphine) 2 mg Q4H PRN IV SEVERE PAIN LEVEL 7-10; Start at 16:00 Docusate Sodium (Colace) 100 mg Q12H PRN PO CONSTIPATION; Start 12/16/16 at 16: 00 Magnesium Hydroxide (Milk Of Mag) 30 ml DAILY PRN PO CONSTIPATION; Start at 16:00 Sodium Biphosphate/ Sodium Phosphate (Fleet Enema) 133 ml DAILY PRN [place] CONSTIPATION; Start 12/16/16 at 16:00 Pantoprazole (Protonix Tab) 40 mg DAILY@06 PO Last administered on 12/17/16 05: 58; Admin Dose 40 MG; Start 12/17/16 at 06:00 Heparin Sodium (Porcine) (Heparin (5000 Units/0.5 ml)) 5,000 unit Q12 SC Last administered on 12/17/16 10:42; Admin Dose 5,000 UNIT; Start 12/16/16 at 21:00 Lorazepam (Ativan) 0.5 mg Q6H PRN PO ANXIETY; Start 12/16/16 at 17:00 Hydralazine HCl (Apresoline) 10 mg Q6H PRN IV ELEVATED BLOOD PRESSURE; Start at 16:00 Nitroglycerin (Nitroglycerin (Sl Tab) 0.4 Mg) 1 tab Q5M PRN SL ANGINA; Start at 16:00 Allopurinol (Zyloprim) 300 mg DAILY PO Last administered on 12/17/16 10:06; Admin Dose 300 MG; Start 12/17/16 at 09:00 Aspirin (Halfprin) 81 mg DAILY PO Last administered on 12/17/16 10:07; Admin Dose 81 MG; Start 12/17/16 at 09:00 Atorvastatin Calcium (Lipitor) 20 mg QHS PO Last administered on 12/16/16 20:34 ; Admin Dose 20 MG; Start 12/16/16 at 21:00 Hydralazine HCl (Apresoline) 50 mg Q8 PO Last administered on 12/17/16 05:58; Admin Dose 50 MG; Start 12/16/16 at 22:00 Metoprolol Succinate (Toprol Xl) 25 mg DAILY PO Last administered on 12/17/16 10:08; Admin Dose 25 MG; Start 12/17/16 at 09:00 Salmeterol Xinafoate/ Fluticasone (Advair 250/50 Diskus) 1 inh BID INH Last administered on 12/17/16 10:06; Admin Dose 1 INH; Start 12/16/16 at 21:00 Methylprednisolone Sodium Succinate (Solu-Medrol) 80 mg Q6 IV Last administered on 12/17/16 05:58; Admin Dose 80 MG; Start 12/16/16 at 18:00 Furosemide (Lasix) 40 mg DAILY IV Last administered on 12/17/16 10:08; Admin Dose 40 MG; Start 12/16/16 at 16:00 Prasugrel (Effient) 10 mg DAILY PO Last administered on 12/17/16 10:06; Admin Dose 10 MG; Start 12/17/16 at 09:00 Insulin Aspart (Novolog Insulin Pen) NOVOLOG *MILD* ALGORI... Q4 SC Last administered on 12/17/16 08:44; Admin Dose 3 UNIT; Start 12/16/16 at 17:00 Miscellaneous Information 1 ea NOTE XX ; Start 12/16/16 at 16:30 Glucose (Glutose) 15 gm Q15M PRN PO DECREASED GLUCOSE; Start 12/16/16 at 16:30 Glucose (Glutose) 22.5 gm Q15M PRN PO DECREASED GLUCOSE; Start 12/16/16 at 16:30 Dextrose (D50w Syringe) 25 ml Q15M PRN IV DECREASED GLUCOSE; Start 12/16/16 at 16:30 Dextrose (D50w Syringe) 50 ml Q15M PRN IV DECREASED GLUCOSE; Start 12/16/16 at 16:30 Glucagon (Glucagen) 1 mg Q15M PRN IM DECREASED GLUCOSE; Start 12/16/16 at 16:30 Glucose 15 gm 15 gm Q15M PRN BUCCAL DECREASED GLUCOSE; Start 12/16/16 at 16:30 Levofloxacin/ Dextrose 100 ml @ 100 mls/hr Q48H IVPB ; Start 12/18/16 at 17:00 Magnesium Sulfate/ Sodium Chloride (Magnesium Sulfate/NS) 106 ml @ 35.333 mls/ hr ONCE ONCE IVPB ; Start 12/17/16 at 13:30; Stop 12/17/16 at 16:29 ALEXANDER BENNETT Dec 17, 2016 12:52
[2016-12-17] MEDS ORDERED: MAGNESIUM SULFATE 3 GM in SOD CHLORIDE 0.9% 100 ML IVPB ONE (13:30)
[2016-12-17] MEDS ORDERED: INSULIN ASPART [NOVOLOG] 3 ML PEN SC SCH (17:25)
[2016-12-17] MEDS: Insulin NOVOLOG SS MILD Algorithm (SS with meals and bedtime) SC SCH ×2 (18:06→21:38)
[2016-12-17] MEDS: ATORVASTATIN 20 MG TAB PO SCH (21:27)
--- NOTE | 2016-12-17 22:04 | CONS ---
Date/Time of Note Date/Time of Note DATE: 12/17/16 TIME: 22:02 Assessment/Plan Assessment/Plan Additional Assessment/Plan 1. Acute kidney injury on chronic kidney disease secondary to hemodynamics from CHF and also possibly secondary to diastolic heart failure. 2. Acute chronic obstructive pulmonary disease exacerbation. 3. Acute congestive heart failure exacerbation, acute on chronic, diastolic dysfunction. 4. History of chronic kidney disease secondary to diabetes, hypertension and congestive heart failure. 5. Hypertension. 6. Hyperlipidemia. 7. Mild Hyperkalemia PLAN: Cr improved to 1.75, BP stable HCo3 19, start bicitra 30 ml PO BID expecting renal function to improve K normal today will continue to follow up Consultation Date/Type/Reason Admit Date/Time Dec 16, 2016 at 13:57 Initial Consult Date 12/16/16 Type of Consultation: NEPHROLOGY Reason for Consultation acute kidney injury on CKD Referring Provider: CASANDRA BABIN 24 HR Interval Summary Free Text/Dictation Cr improved to 1.75, Mag low, Bp stable, afebrile, HCo3 19 Exam/Review of Systems Vital Signs Vitals Vital Signs Date Time Temp Pulse Resp B/P Pulse Ox O2 Delivery O2 Flow Rate FiO2 12/17/16 21:15 102 20 90 Nasal Cannula 3.0 12/17/16 19:53 97.8 131/75 Intake and Output 12/16/16 12/16/16 12/17/16 15:00 23:00 07:00 Intake Total 50 ml 300 ml 120 ml Output Total 700 ml Balance 50 ml 300 ml -580 ml Exam GENERAL: Awake, alert, mild to moderate distress due to his hypoxia and shortness of breath. HEENT: Pupils equal, round, reactive to light and accommodation. Extraocular muscles are intact. NECK: Supple, jugular venous distention up to the mid neck. No lymphadenopathy. LUNGS: Bibasilar rales present/crackles present. HEART: S1, S2, with regular rhythm, no murmur. ABDOMEN: Soft, nontender, nondistended. Bowel sounds are present. EXTREMITIES: 1 to 2+ pitting edema, no clubbing, no cyanosis. PSYCHIATRIC: Appropriate affect and mood. Results Result Diagram: 12/17/16 0600 12/17/16 0600 Results 24 hrs Laboratory Tests Test 12/17/16 00:32 12/17/16 05:07 12/17/16 06:00 12/17/16 08:31 Bedside Glucose 175 212 230 H White Blood Count 5.1 Red Blood Count 4.23 L Hemoglobin 12.6 L Hematocrit 38.3 L Mean Corpuscular Volume 90.5 Mean Corpuscular Hemoglobin 29.8 Mean Corpuscular Hemoglobin Concent 32.9 Red Cell Distribution Width 14.9 H Platelet Count 182 Mean Platelet Volume 11.4 H Neutrophils % 91.9 H Lymphocytes % 6.3 L Monocytes % 1.0 Eosinophils % 0.0 Basophils % 0.0 Nucleated Red Blood Cells % 0.0 Neutrophils # 4.7 Lymphocytes # 0.3 L Monocytes # 0.1 L Eosinophils # 0.0 Basophils # 0.0 Nucleated Red Blood Cells # 0.0 Sodium Level 144 Potassium Level 4.2 Chloride Level 110 Carbon Dioxide Level 19 L Anion Gap 19 H Blood Urea Nitrogen 56 H Creatinine 1.75 H Glucose Level 208 Hemoglobin A1c 7.4 H Calcium Level 9.3 Phosphorus Level 4.6 Magnesium Level 1.3 L Triglycerides Level 66 Cholesterol Level 123 LDL Cholesterol, Calculated 67 HDL Cholesterol 43 Cholesterol/HDL Ratio 2.8 Thyroid Stimulating Hormone (TSH) 0.743 Test 12/17/16 13:04 12/17/16 17:23 12/17/16 21:24 Bedside Glucose 244 H 245 H 245 H Medications Medications Current Medications Ondansetron HCl (Zofran Inj) 4 mg Q6H PRN IV NAUSEA AND/OR VOMITING; Start 12/16 at 16:00 Acetaminophen (Tylenol Tab) 650 mg Q6H PRN PO PAIN LEVEL 1-3 OR FEVER; Start at 16:00 Acetaminophen/ Hydrocodone Bitart ([place] (5/325)) 1 tab Q6H PRN PO MODERATE PAIN LEVEL 4-6; Start 12/16/16 at 16:00 Morphine Sulfate (morphine) 2 mg Q4H PRN IV SEVERE PAIN LEVEL 7-10; Start at 16:00 Docusate Sodium (Colace) 100 mg Q12H PRN PO CONSTIPATION; Start 12/16/16 at 16: 00 Magnesium Hydroxide (Milk Of Mag) 30 ml DAILY PRN PO CONSTIPATION; Start at 16:00 Sodium Biphosphate/ Sodium Phosphate (Fleet Enema) 133 ml DAILY PRN [place] CONSTIPATION; Start 12/16/16 at 16:00 Pantoprazole (Protonix Tab) 40 mg DAILY@06 PO Last administered on 12/17/16 05: 58; Admin Dose 40 MG; Start 12/17/16 at 06:00 Heparin Sodium (Porcine) (Heparin (5000 Units/0.5 ml)) 5,000 unit Q12 SC Last administered on 12/17/16 21:29; Admin Dose 5,000 UNIT; Start 12/16/16 at 21:00 Lorazepam (Ativan) 0.5 mg Q6H PRN PO ANXIETY; Start 12/16/16 at 17:00 Hydralazine HCl (Apresoline) 10 mg Q6H PRN IV ELEVATED BLOOD PRESSURE; Start at 16:00 Nitroglycerin (Nitroglycerin (Sl Tab) 0.4 Mg) 1 tab Q5M PRN SL ANGINA; Start at 16:00 Allopurinol (Zyloprim) 300 mg DAILY PO Last administered on 12/17/16 10:06; Admin Dose 300 MG; Start 12/17/16 at 09:00 Aspirin (Halfprin) 81 mg DAILY PO Last administered on 12/17/16 10:07; Admin Dose 81 MG; Start 12/17/16 at 09:00 Atorvastatin Calcium (Lipitor) 20 mg QHS PO Last administered on 12/17/16 21:27 ; Admin Dose 20 MG; Start 12/16/16 at 21:00 Hydralazine HCl (Apresoline) 50 mg Q8 PO Last administered on 12/17/16 21:26; Admin Dose 50 MG; Start 12/16/16 at 22:00 Metoprolol Succinate (Toprol Xl) 25 mg DAILY PO Last administered on 12/17/16 10:08; Admin Dose 25 MG; Start 12/17/16 at 09:00 Salmeterol Xinafoate/ Fluticasone (Advair 250/50 Diskus) 1 inh BID INH Last administered on 12/17/16 21:26; Admin Dose 1 INH; Start 12/16/16 at 21:00 Methylprednisolone Sodium Succinate (Solu-Medrol) 80 mg Q6 IV Last administered on 12/17/16 17:26; Admin Dose 80 MG; Start 12/16/16 at 18:00 Furosemide (Lasix) 40 mg DAILY IV Last administered on 12/17/16 10:08; Admin Dose 40 MG; Start 12/16/16 at 16:00 Prasugrel (Effient) 10 mg DAILY PO Last administered on 12/17/16 10:06; Admin Dose 10 MG; Start 12/17/16 at 09:00 Miscellaneous Information 1 ea NOTE XX ; Start 12/16/16 at 16:30 Glucose (Glutose) 15 gm Q15M PRN PO DECREASED GLUCOSE; Start 12/16/16 at 16:30 Glucose (Glutose) 22.5 gm Q15M PRN PO DECREASED GLUCOSE; Start 12/16/16 at 16:30 Dextrose (D50w Syringe) 25 ml Q15M PRN IV DECREASED GLUCOSE; Start 12/16/16 at 16:30 Dextrose (D50w Syringe) 50 ml Q15M PRN IV DECREASED GLUCOSE; Start 12/16/16 at 16:30 Glucagon (Glucagen) 1 mg Q15M PRN IM DECREASED GLUCOSE; Start 12/16/16 at 16:30 Glucose 15 gm 15 gm Q15M PRN BUCCAL DECREASED GLUCOSE; Start 12/16/16 at 16:30 Levofloxacin/ Dextrose (Levaquin 500mg/ D5W 100 ml (Pmx)) 100 ml @ 100 mls/hr Q48H IVPB ; Start 12/18/16 at 17:00 Diagnostic Test (Pha) (Accu-Chek) 1 ea 02 XX ; Start 12/18/16 at 02:00 LUBNA TAVARES MD Dec 17, 2016 22:04
[2016-12-17] MEDS ORDERED: GUAIFENESIN/DM 5ML CUP PO PRN (23:30)
[2016-12-17] MEDS ORDERED: INSULIN GLARGINE [LANtus] 3 ML PEN SC ONE (23:30)
[2016-12-17] MEDS ORDERED: GLUCAGON 1 MG INJ IM PRN (23:45)
[2016-12-17] MEDS ORDERED: GLUCOSE GEL 15 GRAM TUBE BUCCAL PRN (23:45)
[2016-12-17] MEDS ORDERED: GLUCOSE GEL 15 GRAM TUBE PO PRN ×2 (23:45)
[2016-12-17] MEDS ORDERED: DEXTROSE 50% 50 ML SYRINGE IV PRN ×2 (23:45)
[2016-12-18] VITALS (9 sets, daily range): BP systolic 113–142; BP diastolic 60–87; PULSE 99–109; RESP 16–20
[2016-12-18] MEDS ORDERED: GUAIFENESIN 20 MG/ML 5ML CUP PO PRN (00:25)
[2016-12-18] MEDS: METHYLPREDNISOLONE 125 MG INJ IV SCH ×2 (00:28→05:28)
[2016-12-18] MEDS: ALBUTEROL/IPRATROPIUM (NEB) 3 ML AMP HHN SCH ×5 (01:17→16:43)
[2016-12-18] MEDS ORDERED: ACCUCHECK AT 2AM (Patients on SS coverage) XX SCH (02:00)
[2016-12-18] MEDS ORDERED: ACCU-CHEK XX SCH ×2 (02:00)
[2016-12-18] MEDS: PANTOPRAZOLE (EC) 40 MG TAB PO SCH (05:28)
[2016-12-18 07:04] LABS: ADD SCAN DIFF NO
[2016-12-18 07:10] LABS: ABNORMAL IP MESSAGE 1; BASOPHILS % 0.1 % (0.0-2.0); HEMATOCRIT 42.5 % (42.0-52.0); LYMPHOCYTES # 0.3 10^3/ul (0.8-2.9); LYMPHOCYTES % 2.1 % (15.0-51.0); MEAN CORPUSCULAR HEMOGLOBIN 29.8 pg (29.0-33.0); MEAN CORPUSCULAR HGB CONC 32.9 g/dl (32.0-37.0); MEAN CORPUSCULAR VOLUME 90.4 fl (82.0-101.0); MEAN PLATELET VOLUME 11.3 fl (7.4-10.4); MONOCYTE # 0.2 10^3/ul (0.3-0.9); MONOCYTES % 1.8 % (0.0-11.0); NEUTROPHIL # 11.9 10^3/ul (1.6-7.5); NEUTROPHILS % 95.6 % (39.0-77.0); PLATELET COUNT 204 10^3/UL (140-415); RED CELL DISTRIBUTION WIDTH 15.2 % (11.5-14.5); WHITE BLOOD COUNT 12.5 10^3/ul (4.8-10.8)
[2016-12-18 07:55] LABS: ALBUMIN 4.9 g/dl (3.3-4.9); ALBUMIN/GLOBULIN RATIO 2.33; BILIRUBIN,INDIRECT 0.6 mg/dl (0-1.1); BILIRUBIN,TOTAL 0.6 mg/dl (0.2-1.3); CALCIUM 9.5 mg/dl (8.4-10.2); CREATININE 1.69 mg/dl (0.61-1.24); MAGNESIUM 2.1 mg/dl (1.7-2.5); POTASSIUM 3.9 mmol/L (3.5-5.1)
[2016-12-18] MEDS: ASPIRIN (EC) 81 MG TAB PO SCH (08:26)
[2016-12-18] MEDS: METOPROLOL (XL) 25 MG TAB PO SCH (08:27)
[2016-12-18] MEDS: ALLOPURINOL 300 MG TAB PO SCH (08:27)
[2016-12-18] MEDS: PRASUGREL HYDROCHLORIDE 10 MG TABLET PO SCH (08:27)
[2016-12-18] MEDS: FUROSEMIDE 40 MG INJ IV SCH (08:27)
[2016-12-18] MEDS: SALMETEROL/FLUTICASONE 250/50 INHA INH SCH (08:29)
[2016-12-18] MEDS: INSULIN ASPART [NOVOLOG] 3 ML PEN SC SCH ×5 (08:45→18:16)
[2016-12-18] MEDS: HEPARIN 5,000 UNIT/0.5 ML VIAL SC SCH (08:46)
[2016-12-18 08:51] LABS: TROPONIN-I 0.038 ng/ml (0.00-0.12)
[2016-12-18 08:52] LABS: CK-MB 5.66 ng/ml (0.0-2.4)
[2016-12-18] MEDS ORDERED: CITRIC ACID/SODIUM CITRATE 15 ML CUP PO SCH (09:00)
--- NOTE | 2016-12-18 09:27 | PN ---
DATE: 12/18/2016 CARDIOLOGY FOLLOWUP PROGRESS NOTE SUBJECTIVE: Discussed with the staff. Rhythm strip was reviewed. The patient remains in sinus rhy thm. No chest pain or pressure. No palpitations. Does complain of cough. Does complains of short ness of breath. No chest pain or pressure. The lower extremity edema has improved. MEDICATIONS: Reviewed, which include: 1. Insulin. 2. Levaquin. 3. ____. 4. Aspirin. 5. Toprol. 6. Effient. 7. Protonix. 8. Hydralazine. 9. Lipitor. 10. Solu-Medrol. 11. Albuterol. 12. Lasix 40 IV daily. PHYSICAL EXAMINATION: VITAL SIGNS: Temperature 97.3, heart rate 96, blood pressure 113/60, respiratory rate 18, saturatin g 97%. HEENT: Normocephalic, atraumatic. GENERAL: Appears in moderate respiratory distress. CARDIOVASCULAR: Regular rate and rhythm, systolic murmur. PULMONARY: With mild rhonchi, no wheezes. GASTROINTESTINAL: Soft, nontender. EXTREMITIES: Positive lower extremity edema. NEUROLOGIC: Awake, responds appropriately. PSYCHIATRIC: Appears to be calm and pleasant. LABORATORY: Shows WBC of 12.5, hemoglobin of 4.7, platelets of 204. Sodium 142, potassium 3.9, BUN of 50, creatinine 1.69, glucose of 203. Troponin from today is still pending. ASSESSMENT AND PLAN: 1. Hypoxemic respiratory failure. 2. Severe pulmonary hypertension. 3. Severe coronary artery disease. 4. Status post percutaneous coronary intervention. RECOMMENDATIONS: Continue with current diuresis. Renal failure appears to be stabilizing. ____ wi ll be followed up. I will start the patient on Viagra. Again, hold off on any nitrates for now. I will order a VQ scan as well to rule out chronic PE ____ pulmonary hypertension. Dictated By: LEELEE BARROS MD AV/JOVANNY Conf#: [id number] DID#: [id number] CC: LUBNA TAVARES MD;*End*
[2016-12-18] MEDS: SILDENAFIL 20 MG TAB PO SCH ×2 (09:31→12:19)
--- NOTE | 2016-12-18 11:43 | PN ---
Date/Time of Note Date/Time of Note DATE: 12/18/16 TIME: 11:38 Assessment/Plan VTE Prophylaxis VTE Prophylaxis Intervention: heparin Lines/Catheters IV [facility] Urinary Cath still in place: No Assessment/Plan Chief Complaint/Hosp Course ASSESSMENT/PLAN: 71-year-old male coming in with shortness of breath symptoms, likely secondary to chronic obstructive pulmonary disease and congestive heart failure exacerbation along with renal insufficiency, and with severe pulm HTN now. 1. Shortness of breath. Again secondary to combination of chronic obstructive pulmonary disease and CHF along with severe pulm HTN - slowly improving - f/u cardiology consult, f/u PT and OT consults as well (still pending), will taper steroids now. - continue DuoNeb q.4h. around the clock, IV Lasix for now, although cautiously given his elevated creatinine. - Monitor ins and outs, keep the head of the bed greater than 30 degrees. - started on Revatio TID as well for pulm HTN, V/Q scan f/u this (pending) 2. Type 2 diabetes - A1c = 7.4, - continue sliding scale insulin. 3. Essential hypertension. Again, continue current cardiac medications. Blood pressure is presently stable. Hydralazine p.r.n. 4. History of coronary artery disease status post stent in the past. - Continue aspirin and Effient. - f/u cardiology consult rec's. 5. History of chronic obstructive pulmonary disease, see #1. Again, breathing treatments and steroids. 6. History of hepatorenal syndrome - f/u renal consult rec's, monitor Cr, Monitor ins and outs as well. 7. Gastrointestinal prophylaxis -Protonix. 8. Deep venous thrombosis prophylaxis, heparin subcu. Problems: Subjective 24 Hr Interval Summary Free Text/Dictation Pt has less SOB. Awaiting VQ scan to r/o PE. Started on Revatio. Exam/Review of Systems Vital Signs Vitals Vital Signs Date Time Temp Pulse Resp B/P Pulse Ox O2 Delivery O2 Flow Rate FiO2 12/18/16 09:10 100 22 92 Aerosol Mask 3.0 12/18/16 07:21 97.6 113/60 Intake and Output 12/17/16 12/17/16 12/18/16 15:00 23:00 07:00 Intake Total 1200 ml 120 ml Output Total 1500 ml 700 ml Balance -300 ml -580 ml Exam GENERAL: The patient is sitting up in bed, answering questions appropriately, alert HEENT: Pupils equal, round, react to light. Extraocular muscles intact. NECK: Supple, no thyromegaly. LUNGS: less decreased breath sounds, no rhonchi. CARDIOVASCULAR: S1, S2 heard. No rubs or gallops. ABDOMEN: Soft, nontender, nondistended. Normal bowel sounds. No rebound or guarding. MUSCULOSKELETAL: 1+ pitting edema bilateral lower extremities to the mid calves. NEUROLOGIC: No focal deficits. Results Result Diagram: 12/18/16 0553 12/18/16 0553 Results 24 hrs Laboratory Tests Test 12/17/16 13:04 12/17/16 17:23 12/17/16 21:24 12/18/16 00:56 Bedside Glucose 244 H 245 H 245 H 226 H Test 12/18/16 05:53 12/18/16 07:59 White Blood Count 12.5 #H Red Blood Count 4.70 Hemoglobin 14.0 Hematocrit 42.5 Mean Corpuscular Volume 90.4 Mean Corpuscular Hemoglobin 29.8 Mean Corpuscular Hemoglobin Concent 32.9 Red Cell Distribution Width 15.2 H Platelet Count 204 Mean Platelet Volume 11.3 H Neutrophils % 95.6 H Lymphocytes % 2.1 L Monocytes % 1.8 Eosinophils % 0.0 Basophils % 0.1 Nucleated Red Blood Cells % 0.0 Neutrophils # 11.9 H Lymphocytes # 0.3 L Monocytes # 0.2 L Eosinophils # 0.0 Basophils # 0.0 Nucleated Red Blood Cells # 0.0 Sodium Level 143 Potassium Level 3.9 Chloride Level 106 Carbon Dioxide Level 22 Anion Gap 19 H Blood Urea Nitrogen 50 H Creatinine 1.69 H Glucose Level 203 Calcium Level 9.5 Phosphorus Level 4.6 Magnesium Level 2.1 Total Bilirubin 0.6 Direct Bilirubin 0.00 Indirect Bilirubin 0.6 Aspartate Amino Transf (AST/SGOT) 39 Alanine Aminotransferase (ALT/SGPT) 48 Alkaline Phosphatase 85 Creatine Kinase 203 H Creatine Kinase Index 2.8 Creatinine Kinase MB (Mass) 5.66 H Troponin I 0.038 B-Type Natriuretic Peptide 6570 H Total Protein 7.0 Albumin 4.9 Globulin 2.10 Albumin/Globulin Ratio 2.33 Bedside Glucose 248 H Medications Medications Current Medications Ondansetron HCl (Zofran Inj) 4 mg Q6H PRN IV NAUSEA AND/OR VOMITING; Start 12/16 at 16:00 Acetaminophen (Tylenol Tab) 650 mg Q6H PRN PO PAIN LEVEL 1-3 OR FEVER; Start at 16:00 Acetaminophen/ Hydrocodone Bitart ([place] (5/325)) 1 tab Q6H PRN PO MODERATE PAIN LEVEL 4-6; Start 12/16/16 at 16:00 Morphine Sulfate (morphine) 2 mg Q4H PRN IV SEVERE PAIN LEVEL 7-10; Start at 16:00 Docusate Sodium (Colace) 100 mg Q12H PRN PO CONSTIPATION; Start 12/16/16 at 16: 00 Magnesium Hydroxide (Milk Of Mag) 30 ml DAILY PRN PO CONSTIPATION; Start at 16:00 Sodium Biphosphate/ Sodium Phosphate (Fleet Enema) 133 ml DAILY PRN [place] CONSTIPATION; Start 12/16/16 at 16:00 Pantoprazole (Protonix Tab) 40 mg DAILY@06 PO Last administered on 12/18/16 05: 28; Admin Dose 40 MG; Start 12/17/16 at 06:00 Heparin Sodium (Porcine) (Heparin (5000 Units/0.5 ml)) 5,000 unit Q12 SC Last administered on 12/18/16 08:46; Admin Dose 5,000 UNIT; Start 12/16/16 at 21:00 Lorazepam (Ativan) 0.5 mg Q6H PRN PO ANXIETY; Start 12/16/16 at 17:00 Hydralazine HCl (Apresoline) 10 mg Q6H PRN IV ELEVATED BLOOD PRESSURE; Start at 16:00 Nitroglycerin (Nitroglycerin (Sl Tab) 0.4 Mg) 1 tab Q5M PRN SL ANGINA; Start at 16:00 Allopurinol (Zyloprim) 300 mg DAILY PO Last administered on 12/18/16 08:27; Admin Dose 300 MG; Start 12/17/16 at 09:00 Aspirin (Halfprin) 81 mg DAILY PO Last administered on 12/18/16 08:26; Admin Dose 81 MG; Start 12/17/16 at 09:00 Atorvastatin Calcium (Lipitor) 20 mg QHS PO Last administered on 12/17/16 21:27 ; Admin Dose 20 MG; Start 12/16/16 at 21:00 Hydralazine HCl (Apresoline) 50 mg Q8 PO Last administered on 12/18/16 05:28; Admin Dose 50 MG; Start 12/16/16 at 22:00 Metoprolol Succinate (Toprol Xl) 25 mg DAILY PO Last administered on 12/18/16 08:27; Admin Dose 25 MG; Start 12/17/16 at 09:00 Salmeterol Xinafoate/ Fluticasone (Advair 250/50 Diskus) 1 inh BID INH Last administered on 12/18/16 08:29; Admin Dose 1 INH; Start 12/16/16 at 21:00 Methylprednisolone Sodium Succinate (Solu-Medrol) 80 mg Q6 IV Last administered on 12/18/16 05:28; Admin Dose 80 MG; Start 12/16/16 at 18:00 Furosemide (Lasix) 40 mg DAILY IV Last administered on 12/18/16 08:27; Admin Dose 40 MG; Start 12/16/16 at 16:00 Prasugrel (Effient) 10 mg DAILY PO Last administered on 12/18/16 08:27; Admin Dose 10 MG; Start 12/17/16 at 09:00 Miscellaneous Information 1 ea 1 ea NOTE XX ; Start 12/16/16 at 16:30 Levofloxacin/ Dextrose (Levaquin 500mg/ D5W 100 ml (Pmx)) 100 ml @ 100 mls/hr Q48H IVPB ; Start 12/18/16 at 17:00 Citric Acid/ Sodium Citrate (Bicitra) 30 ml BID PO Last administered on 09:31; Admin Dose 30 ML; Start 12/18/16 at 09:00 Diagnostic Test (Pha) (Accu-Chek) 1 ea 02 XX Last administered on 12/18/16 02: 16; Admin Dose 1 EA; Start 12/18/16 at 02:00 Miscellaneous Information 1 ea NOTE XX ; Start 12/17/16 at 23:45 Glucose (Glutose) 15 gm Q15M PRN PO DECREASED GLUCOSE; Start 12/17/16 at 23:45 Glucose (Glutose) 22.5 gm Q15M PRN PO DECREASED GLUCOSE; Start 12/17/16 at 23:45 Dextrose (D50w Syringe) 25 ml Q15M PRN IV DECREASED GLUCOSE; Start 12/17/16 at 23:45 Dextrose (D50w Syringe) 50 ml Q15M PRN IV DECREASED GLUCOSE; Start 12/17/16 at 23:45 Glucagon (Glucagen) 1 mg Q15M PRN IM DECREASED GLUCOSE; Start 12/17/16 at 23:45 Glucose (Glutose) 15 gm Q15M PRN BUCCAL DECREASED GLUCOSE; Start 12/17/16 at 23: 45 Guaifenesin (Robitussin Liquid Cup) 200 mg Q4H PRN PO COUGH Last administered on 12/18/16 01:04; Admin Dose 200 MG; Start 12/18/16 at 00:25 Sildenafil Citrate (Revatio) 20 mg TID PO Last administered on 12/18/16 09:31; Admin Dose 20 MG; Start 12/18/16 at 09:00 Insulin Glargine (Lantus) 15 unit DAILY@20 SC ; Start 12/18/16 at 20:00; Status UNFLY SINGH Dec 18, 2016 11:43
--- NOTE | 2016-12-18 12:04 | CONS ---
Date/Time of Note Date/Time of Note DATE: 12/18/16 TIME: 12:00 Assessment/Plan Assessment/Plan Additional Assessment/Plan Assessment and recommendations; 1. Patient admitted with right ventricular failure causing peripheral edema with significant interval clinical improvement. 2. Severe underlying pulmonary hypertension with right ventricular strain. Etiology is unclear possibly chronic thrombi embolic disease. 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 Difficult to rule out superimposed interstitial lung disease. 4. Chronic renal insufficiency. 5. Coronary artery disease. With ongoing needs for periodic nitrate use. 6. Diabetes and hypertension. Next Continue current treatment. As outlined earlier, patient is not a candidate for a CTA of the chest on account of renal insufficiency. Also not a candidate for phosphodiesterase inhibitors on account of underlying coronary artery disease with ongoing nitrate use. Patient however could potentially benefit from empiric anticoagulation and I would recommend administration of apixaban 2.5 mg twice daily on a chronic basis. Consultation Date/Type/Reason Admit Date/Time Dec 16, 2016 at 13:57 Initial Consult Date 12/17/16 Type of Consultation: Pulmonary Referring Provider: CASANDRA BABIN 24 HR Interval Summary Free Text/Dictation Patient condition stable. Still complains of dyspnea on mild exertion. Complains of very mild lower extremity swelling. Denies any chest pain, coughing, hemoptysis. General exam; elderly male, awake alert currently in no distress. Exam/Review of Systems Vital Signs Vitals Vital Signs Date Time Temp Pulse Resp B/P Pulse Ox O2 Delivery O2 Flow Rate FiO2 12/18/16 09:10 100 22 92 Aerosol Mask 3.0 12/18/16 07:21 97.6 113/60 Intake and Output 12/17/16 12/17/16 12/18/16 15:00 23:00 07:00 Intake Total 1200 ml 120 ml Output Total 1500 ml 700 ml Balance -300 ml -580 ml Exam HEENT exam is; supple neck, no JVD. No lymphadenopathy. Midline trachea. No thyromegaly. Patient is edentulous and wears dentures. Chest examination; diminished but clear vessel. S1-S2 audible, no gallop. No murmurs. Regular rhythm. Abdomen examination; soft, no organomegaly. Bowel sounds audible. Nontender. Nondistended. Extremity examination; trace lower extremity peripheral edema. Pulses 1+ bilaterally. No clubbing. [employer] examination; no focal motor deficit. Results Result Diagram: 12/18/16 0553 12/18/16 0553 Results 24 hrs Laboratory Tests Test 12/17/16 13:04 12/17/16 17:23 12/17/16 21:24 12/18/16 00:56 Bedside Glucose 244 H 245 H 245 H 226 H Test 12/18/16 05:53 12/18/16 07:59 12/18/16 11:27 White Blood Count 12.5 #H Red Blood Count 4.70 Hemoglobin 14.0 Hematocrit 42.5 Mean Corpuscular Volume 90.4 Mean Corpuscular Hemoglobin 29.8 Mean Corpuscular Hemoglobin Concent 32.9 Red Cell Distribution Width 15.2 H Platelet Count 204 Mean Platelet Volume 11.3 H Neutrophils % 95.6 H Lymphocytes % 2.1 L Monocytes % 1.8 Eosinophils % 0.0 Basophils % 0.1 Nucleated Red Blood Cells % 0.0 Neutrophils # 11.9 H Lymphocytes # 0.3 L Monocytes # 0.2 L Eosinophils # 0.0 Basophils # 0.0 Nucleated Red Blood Cells # 0.0 Sodium Level 143 Potassium Level 3.9 Chloride Level 106 Carbon Dioxide Level 22 Anion Gap 19 H Blood Urea Nitrogen 50 H Creatinine 1.69 H Glucose Level 203 Calcium Level 9.5 Phosphorus Level 4.6 Magnesium Level 2.1 Total Bilirubin 0.6 Direct Bilirubin 0.00 Indirect Bilirubin 0.6 Aspartate Amino Transf (AST/SGOT) 39 Alanine Aminotransferase (ALT/SGPT) 48 Alkaline Phosphatase 85 Creatine Kinase 203 H Creatine Kinase Index 2.8 Creatinine Kinase MB (Mass) 5.66 H Troponin I 0.038 B-Type Natriuretic Peptide 6570 H Total Protein 7.0 Albumin 4.9 Globulin 2.10 Albumin/Globulin Ratio 2.33 Bedside Glucose 248 H 287 H Medications Medications Current Medications Ondansetron HCl (Zofran Inj) 4 mg Q6H PRN IV NAUSEA AND/OR VOMITING; Start 12/16 at 16:00 Acetaminophen (Tylenol Tab) 650 mg Q6H PRN PO PAIN LEVEL 1-3 OR FEVER; Start at 16:00 Acetaminophen/ Hydrocodone Bitart ([place] (5/325)) 1 tab Q6H PRN PO MODERATE PAIN LEVEL 4-6; Start 12/16/16 at 16:00 Morphine Sulfate (morphine) 2 mg Q4H PRN IV SEVERE PAIN LEVEL 7-10; Start at 16:00 Docusate Sodium (Colace) 100 mg Q12H PRN PO CONSTIPATION; Start 12/16/16 at 16: 00 Magnesium Hydroxide (Milk Of Mag) 30 ml DAILY PRN PO CONSTIPATION; Start at 16:00 Sodium Biphosphate/ Sodium Phosphate (Fleet Enema) 133 ml DAILY PRN [place] CONSTIPATION; Start 12/16/16 at 16:00 Pantoprazole (Protonix Tab) 40 mg DAILY@06 PO Last administered on 12/18/16 05: 28; Admin Dose 40 MG; Start 12/17/16 at 06:00 Heparin Sodium (Porcine) (Heparin (5000 Units/0.5 ml)) 5,000 unit Q12 SC Last administered on 12/18/16 08:46; Admin Dose 5,000 UNIT; Start 12/16/16 at 21:00 Lorazepam (Ativan) 0.5 mg Q6H PRN PO ANXIETY; Start 12/16/16 at 17:00 Hydralazine HCl (Apresoline) 10 mg Q6H PRN IV ELEVATED BLOOD PRESSURE; Start at 16:00 Nitroglycerin (Nitroglycerin (Sl Tab) 0.4 Mg) 1 tab Q5M PRN SL ANGINA; Start at 16:00 Allopurinol (Zyloprim) 300 mg DAILY PO Last administered on 12/18/16 08:27; Admin Dose 300 MG; Start 12/17/16 at 09:00 Aspirin (Halfprin) 81 mg DAILY PO Last administered on 12/18/16 08:26; Admin Dose 81 MG; Start 12/17/16 at 09:00 Atorvastatin Calcium (Lipitor) 20 mg QHS PO Last administered on 12/17/16 21:27 ; Admin Dose 20 MG; Start 12/16/16 at 21:00 Hydralazine HCl (Apresoline) 50 mg Q8 PO Last administered on 12/18/16 05:28; Admin Dose 50 MG; Start 12/16/16 at 22:00 Metoprolol Succinate (Toprol Xl) 25 mg DAILY PO Last administered on 12/18/16 08:27; Admin Dose 25 MG; Start 12/17/16 at 09:00 Salmeterol Xinafoate/ Fluticasone (Advair 250/50 Diskus) 1 inh BID INH Last administered on 12/18/16 08:29; Admin Dose 1 INH; Start 12/16/16 at 21:00 Furosemide (Lasix) 40 mg DAILY IV Last administered on 12/18/16 08:27; Admin Dose 40 MG; Start 12/16/16 at 16:00 Prasugrel (Effient) 10 mg DAILY PO Last administered on 12/18/16 08:27; Admin Dose 10 MG; Start 12/17/16 at 09:00 Miscellaneous Information 1 ea 1 ea NOTE XX ; Start 12/16/16 at 16:30 Levofloxacin/ Dextrose (Levaquin 500mg/ D5W 100 ml (Pmx)) 100 ml @ 100 mls/hr Q48H IVPB ; Start 12/18/16 at 17:00 Citric Acid/ Sodium Citrate (Bicitra) 30 ml BID PO Last administered on 09:31; Admin Dose 30 ML; Start 12/18/16 at 09:00 Diagnostic Test (Pha) (Accu-Chek) 1 ea 02 XX Last administered on 12/18/16 02: 16; Admin Dose 1 EA; Start 12/18/16 at 02:00 Miscellaneous Information 1 ea NOTE XX ; Start 12/17/16 at 23:45 Glucose (Glutose) 15 gm Q15M PRN PO DECREASED GLUCOSE; Start 12/17/16 at 23:45 Glucose (Glutose) 22.5 gm Q15M PRN PO DECREASED GLUCOSE; Start 12/17/16 at 23:45 Dextrose (D50w Syringe) 25 ml Q15M PRN IV DECREASED GLUCOSE; Start 12/17/16 at 23:45 Dextrose (D50w Syringe) 50 ml Q15M PRN IV DECREASED GLUCOSE; Start 12/17/16 at 23:45 Glucagon (Glucagen) 1 mg Q15M PRN IM DECREASED GLUCOSE; Start 12/17/16 at 23:45 Glucose (Glutose) 15 gm Q15M PRN BUCCAL DECREASED GLUCOSE; Start 12/17/16 at 23: 45 Guaifenesin (Robitussin Liquid Cup) 200 mg Q4H PRN PO COUGH Last administered on 12/18/16 01:04; Admin Dose 200 MG; Start 12/18/16 at 00:25 Sildenafil Citrate (Revatio) 20 mg TID PO Last administered on 12/18/16t 09:31; Admin Dose 20 MG; Start 12/18/16 at 09:00 Insulin Glargine (Lantus) 15 unit DAILY@20 SC ; Start 12/18/16 at 20:00 Prednisone (Prednisone) 60 mg DAILY PO ; Start 12/19/16 at 09:00 ALEXANDER BENNETT Dec 18, 2016 12:04
--- NOTE | 2016-12-18 14:00 | PDOCDIS ---
Discharge Instructions CONDITION Patient Condition: Stable HOME CARE INSTRUCTIONS: Special Diet: Carb Controlled ACTIVITY: Activity Restrictions: Slowly Increase Activity Rest between Activity Avoid heavy lifting FOLLOW UP/APPOINTMENTS Appointments Please take your medications as prescribed, see your doctor in the clinic in 1 week. FLY BROTHERS Dec 18, 2016 14:00
[2016-12-18] MEDS ORDERED: SILD20TA13 PO (14:03)
[2016-12-18] MEDS ORDERED: LEVO750T25 PO (14:03)
[2016-12-18] MEDS ORDERED: PRAS10TA6 PO (14:03)
[2016-12-18] MEDS ORDERED: ALBU8.5H3 INH (14:03)
[2016-12-18] MEDS ORDERED: APIX2.5T PO (14:20)
--- NOTE | 2016-12-18 14:40 | DS ---
DATE OF ADMISSION: 12/16/2016 DATE OF DISCHARGE: 12/18/2016 This is a 71-year-old male originally admitted on 12/16/2016, being discharged home pending results of V/Q scan on 12/18/2016. HOSPITAL COURSE: The patient came in with shortness of breath symptoms and cough. He was found with a combination of chronic obstructive pulmonary disease and congestive heart failure exacerbation. In addition to that, he was found to have severe pulmonary hypertension. His echocardiogram was performed and showed the following: Hyperdynamic left ventricular systolic function, normal left ventricular cavity size, mild concentric left ventricular hypertrophy, ejection fraction of 70%. There is severe right ventricular systolic dysfunction, severe enlargement of the right ventricle, flattened septum in systole and diastole consistent with increased right ventricular pressure and volume overload, severe enlargement of the right atrium, dilated IVC without respiratory collapse consistent with elevated right atrial pressure. Estimated peak PA systolic pressure 101 mmHg. Tricuspid valve appears mildly thickened. Severe tricuspid regurg. In any event, the patient was given diuresis medications and also breathing treatments, steroids, and antibiotics. The patient's breathing symptoms slowly improved. He was also started on Bicitra as well as he had some renal insufficiency, which was improving by the time of discharge. His creatinine was 2.4 on admission, trending down to 1.6 on the day of discharge. His hemoglobin A1c was found to be 7.4. He was placed on appropriate insulin regimen for that. His sugars improved. The patient was ____ to ambulate and tolerate a p.o. diet. His vital signs were stable as well. His blood culture results were negative as well for any growth. After being seen by cardiology team, speech team, and pulmonary team, again the patient's breathing symptoms improved. Pending the results of the V/Q scan, if the results are negative probability, the patient will be discharged home today in improved condition. DISCHARGE MEDICATIONS: 1. He will be sent with ProAir HFA 2 puffs inhaled q.4 hours p.r.n. 2. Levaquin 750 mg p.o. daily for 5 days. 3. Effient 10 mg daily. 4. Revatio 20 mg t.i.d. 5. Allopurinol 300 mg daily. 6. Amlodipine 10 mg daily. 7. Aspirin 81 mg daily. 8. Atorvastatin 20 mg at bedtime. 9. Symbicort 2 puffs inhaled b.i.d. 10. Furosemide 40 mg daily. 11. Hydralazine 50 mg q.8 hours. 12. Metformin 1000 mg b.i.d. 13. Toprol-XL 25 mg daily. 14. K-Dur 10 mEq daily. 15. Eliquis 2.5 mg p.o. b.i.d. This was discussed with pulmonary team as well. He will need to follow up with primary care doctor in the clinic in the next 1 to 2 weeks. FINAL DIAGNOSES: 1. Shortness of breath. Again, secondary to a combination of chronic obstructive pulmonary disease, congestive heart failure, and severe pulmonary hypertension, slowly improving. 2. Type 2 diabetes with A1c of 7.4. 3. Essential hypertension. 4. History of coronary artery disease, status post cardiac stent in the past, on aspirin and Effient. 5. History of chronic obstructive pulmonary disease on home oxygen. 6. History of hepatorenal syndrome, improving. 7. Presently being ruled out for pulmonary embolism. Time spent discharging patient 45 minutes. Dictated By: FLY RAMIREZ Conf#: [id number] DID#: [id number]
--- NOTE | 2016-12-18 15:33 | RADRPT ---
PROCEDURE: Ventilation-perfusion lung scan CLINICAL INDICATION: 71 -year-old patient with shortness of breath. TECHNIQUE: Following the inhalation of approximately 1.0 mCi of Tc-99m stannous DTPA aerosol, vent ilation images were obtained. The patient was then given an intravenous injection of 4.0 mCi of Tc- 99m MAA, in perfusion images were obtained. COMPARISON: Previous VQ scan dated August 20, 2016. Correlation was made with chest x-ray dated December 16, 2016. FINDINGS: Ventilation images demonstrate an area of reduced ventilation in the right lung, best visualized on the posterior view and, otherwise, unchanged nonhomogeneous distribution of activity in the lungs bi laterally. Perfusion images reveal matched area of reduced perfusion in the right lung posteriorly and, otherwi se, unchanged matched nonhomogeneous distribution of activity in both lungs. Given the presence of a right lower lung infiltrates and right pleural effusion on the chest x-ray d ated December 16, 2016, the findings of low intermediate probability for pulmonary embolus. IMPRESSION: Low intermediate probability for pulmonary embolus. A call report was made to Dr. Swanson at 03:30 p.m. on December 18, 2016 RPTAT: HH .Gail Chino MD, Date Time Electronically viewed and signed by .Gail Chino MD, on 12/18/2016 15:33 .L/
--- NOTE | 2016-12-18 16:59 | CONS ---
Date/Time of Note Date/Time of Note DATE: 12/18/16 TIME: 16:58 Assessment/Plan Assessment/Plan Additional Assessment/Plan 1. Acute kidney injury on chronic kidney disease secondary to hemodynamics from CHF and also possibly secondary to diastolic heart failure. 2. Acute chronic obstructive pulmonary disease exacerbation. 3. Acute congestive heart failure exacerbation, acute on chronic, diastolic dysfunction. 4. History of chronic kidney disease secondary to diabetes, hypertension and congestive heart failure. 5. Hypertension. 6. Hyperlipidemia. 7. Mild Hyperkalemia PLAN: Cr improved to 1.69, BP stable HCo3 19,on bicitra 30 ml PO BID expecting renal function to improve K normal today will continue to follow up Consultation Date/Type/Reason Admit Date/Time Dec 16, 2016 at 13:57 Initial Consult Date 12/16/16 Type of Consultation: NEPHROLOGY Referring Provider: CASANDRA BABIN 24 HR Interval Summary Free Text/Dictation Cr improving, pt stable, less SOB Exam/Review of Systems Vital Signs Vitals Vital Signs Date Time Temp Pulse Resp B/P Pulse Ox O2 Delivery O2 Flow Rate FiO2 12/18/16 16:44 96 20 93 3.0 12/18/16 15:51 97.8 121/71 12/18/16 09:10 Aerosol Mask Intake and Output 12/17/16 12/17/16 12/18/16 15:00 23:00 07:00 Intake Total 1200 ml 120 ml Output Total 1500 ml 700 ml Balance -300 ml -580 ml Results Result Diagram: 12/18/16 0553 12/18/16 0553 Results 24 hrs Laboratory Tests Test 12/17/16 17:23 12/17/16 21:24 12/18/16 00:56 12/18/16 05:53 Bedside Glucose 245 H 245 H 226 H White Blood Count 12.5 #H Red Blood Count 4.70 Hemoglobin 14.0 Hematocrit 42.5 Mean Corpuscular Volume 90.4 Mean Corpuscular Hemoglobin 29.8 Mean Corpuscular Hemoglobin Concent 32.9 Red Cell Distribution Width 15.2 H Platelet Count 204 Mean Platelet Volume 11.3 H Neutrophils % 95.6 H Lymphocytes % 2.1 L Monocytes % 1.8 Eosinophils % 0.0 Basophils % 0.1 Nucleated Red Blood Cells % 0.0 Neutrophils # 11.9 H Lymphocytes # 0.3 L Monocytes # 0.2 L Eosinophils # 0.0 Basophils # 0.0 Nucleated Red Blood Cells # 0.0 Sodium Level 143 Potassium Level 3.9 Chloride Level 106 Carbon Dioxide Level 22 Anion Gap 19 H Blood Urea Nitrogen 50 H Creatinine 1.69 H Glucose Level 203 Calcium Level 9.5 Phosphorus Level 4.6 Magnesium Level 2.1 Total Bilirubin 0.6 Direct Bilirubin 0.00 Indirect Bilirubin 0.6 Aspartate Amino Transf (AST/SGOT) 39 Alanine Aminotransferase (ALT/SGPT) 48 Alkaline Phosphatase 85 Creatine Kinase 203 H Creatine Kinase Index 2.8 Creatinine Kinase MB (Mass) 5.66 H Troponin I 0.038 B-Type Natriuretic Peptide 6570 H Total Protein 7.0 Albumin 4.9 Globulin 2.10 Albumin/Globulin Ratio 2.33 Test 12/18/16 07:59 12/18/16 11:27 Bedside Glucose 248 H 287 H Medications Medications Current Medications Ondansetron HCl (Zofran Inj) 4 mg Q6H PRN IV NAUSEA AND/OR VOMITING; Start 12/16 at 16:00 Acetaminophen (Tylenol Tab) 650 mg Q6H PRN PO PAIN LEVEL 1-3 OR FEVER; Start at 16:00 Acetaminophen/ Hydrocodone Bitart ([place] (5/325)) 1 tab Q6H PRN PO MODERATE PAIN LEVEL 4-6; Start 12/16/16 at 16:00 Morphine Sulfate (morphine) 2 mg Q4H PRN IV SEVERE PAIN LEVEL 7-10; Start at 16:00 Docusate Sodium (Colace) 100 mg Q12H PRN PO CONSTIPATION; Start 12/16/16 at 16: 00 Magnesium Hydroxide (Milk Of Mag) 30 ml DAILY PRN PO CONSTIPATION; Start at 16:00 Sodium Biphosphate/ Sodium Phosphate (Fleet Enema) 133 ml DAILY PRN IA CONSTIPATION; Start 12/16/16 at 16:00 Pantoprazole (Protonix Tab) 40 mg DAILY@06 PO Last administered on 12/18/16 05: 28; Admin Dose 40 MG; Start 12/17/16 at 06:00 Heparin Sodium (Porcine) (Heparin (5000 Units/0.5 ml)) 5,000 unit Q12 SC Last administered on 12/18/16 08:46; Admin Dose 5,000 UNIT; Start 12/16/16 at 21:00 Lorazepam (Ativan) 0.5 mg Q6H PRN PO ANXIETY; Start 12/16/16 at 17:00 Hydralazine HCl (Apresoline) 10 mg Q6H PRN IV ELEVATED BLOOD PRESSURE; Start at 16:00 Nitroglycerin (Nitroglycerin (Sl Tab) 0.4 Mg) 1 tab Q5M PRN SL ANGINA; Start at 16:00 Allopurinol (Zyloprim) 300 mg DAILY PO Last administered on 12/18/16 08:27; Admin Dose 300 MG; Start 12/17/16 at 09:00 Aspirin (Halfprin) 81 mg DAILY PO Last administered on 12/18/16 08:26; Admin Dose 81 MG; Start 12/17/16 at 09:00 Atorvastatin Calcium (Lipitor) 20 mg QHS PO Last administered on 12/17/16 21:27 ; Admin Dose 20 MG; Start 12/16/16 at 21:00 Hydralazine HCl (Apresoline) 50 mg Q8 PO Last administered on 12/18/16 14:13; Admin Dose 50 MG; Start 12/16/16 at 22:00 Metoprolol Succinate (Toprol Xl) 25 mg DAILY PO Last administered on 12/18/16 08:27; Admin Dose 25 MG; Start 12/17/16 at 09:00 Salmeterol Xinafoate/ Fluticasone (Advair 250/50 Diskus) 1 inh BID INH Last administered on 12/18/16 08:29; Admin Dose 1 INH; Start 12/16/16 at 21:00 Furosemide (Lasix) 40 mg DAILY IV Last administered on 12/18/16 08:27; Admin Dose 40 MG; Start 12/16/16 at 16:00 Prasugrel (Effient) 10 mg DAILY PO Last administered on 12/18/16 08:27; Admin Dose 10 MG; Start 12/17/16 at 09:00 Miscellaneous Information 1 ea 1 ea NOTE XX ; Start 12/16/16 at 16:30 Levofloxacin/ Dextrose (Levaquin 500mg/ D5W 100 ml (Pmx)) 100 ml @ 100 mls/hr Q48H IVPB ; Start 12/18/16 at 17:00 Citric Acid/ Sodium Citrate (Bicitra) 30 ml BID PO Last administered on 09:31; Admin Dose 30 ML; Start 12/18/16 at 09:00 Diagnostic Test (Pha) (Accu-Chek) 1 ea 02 XX Last administered on 12/18/16 02: 16; Admin Dose 1 EA; Start 12/18/16 at 02:00 Miscellaneous Information 1 ea NOTE XX ; Start 12/17/16 at 23:45 Glucose (Glutose) 15 gm Q15M PRN PO DECREASED GLUCOSE; Start 12/17/16 at 23:45 Glucose (Glutose) 22.5 gm Q15M PRN PO DECREASED GLUCOSE; Start 12/17/16 at 23:45 Dextrose (D50w Syringe) 25 ml Q15M PRN IV DECREASED GLUCOSE; Start 12/17/16 at 23:45 Dextrose (D50w Syringe) 50 ml Q15M PRN IV DECREASED GLUCOSE; Start 12/17/16 at 23:45 Glucagon (Glucagen) 1 mg Q15M PRN IM DECREASED GLUCOSE; Start 12/17/16 at 23:45 Glucose (Glutose) 15 gm Q15M PRN BUCCAL DECREASED GLUCOSE; Start 12/17/16 at 23: 45 Guaifenesin (Robitussin Liquid Cup) 200 mg Q4H PRN PO COUGH Last administered on 12/18/16 01:04; Admin Dose 200 MG; Start 12/18/16 at 00:25 Sildenafil Citrate (Revatio) 20 mg TID PO Last administered on 12/18/16 12:19; Admin Dose 20 MG; Start 12/18/16 at 09:00 Insulin Glargine (Lantus) 15 unit DAILY@20 SC ; Start 12/18/16 at 20:00 Prednisone (Prednisone) 60 mg DAILY PO ; Start 12/19/16 at 09:00 LUBNA TAVARES MD Dec 18, 2016 16:59
[2016-12-18] MEDS ORDERED: LEVOFLOXACIN 500MG/D5W (PMX) 100 ML IVPB SCH (17:00)
[2016-12-18] MEDS ORDERED: INSULIN GLARGINE [LANtus] 3 ML PEN SC SCH ×2 (20:00)
[2016-12-19] MEDS ORDERED: ACCU-CHEK XX SCH (02:00)
[2016-12-19] MEDS ORDERED: predniSONE 20 MG TAB PO SCH (09:00)
== END 2016-12-18 19:59 | disposition home or self-care (01) | DRG 291 ==
LOC: E/R 09:17 → TEL 13:57
PROVIDERS: ADMIT Internal Medicine; ATTEND Internal Medicine
DX: I13.0 Hypertensive heart and chronic kidney disease with heart failure and stage 1 through stage 4 chronic kidney disease, or unspecified chronic kidney disease (principal); J96.91 Respiratory failure, unspecified with hypoxia; N17.9 Acute kidney failure, unspecified; J18.9 Pneumonia, unspecified organism; J96.92 Respiratory failure, unspecified with hypercapnia; I50.33 Acute on chronic diastolic (congestive) heart failure; J44.1 Chronic obstructive pulmonary disease with (acute) exacerbation; Z95.5 Presence of coronary angioplasty implant and graft; Z79.02 Long term (current) use of antithrombotics/antiplatelets; Z79.82 Long term (current) use of aspirin; Z87.891 Personal history of nicotine dependence; E87.5 Hyperkalemia; N18.9 Chronic kidney disease, unspecified; E11.22 Type 2 diabetes mellitus with diabetic chronic kidney disease; I27.2 Other secondary pulmonary hypertension; I07.1 Rheumatic tricuspid insufficiency
CPT/HCPCS: 36415; 71010; 78582; 80048; 80053; 80061; 82550; 82553; 82962; 83036; 83735; 83880; 84100; 84439; 84443; 84484; 85025; 85610; 85730; 87040; 92610; 93005; 93306; 94640; 94644; 96365; 96375; A9540; J0692; J1644; J1815; J1940; J1956; J2930; J3370; J3475

== ENCOUNTER 2016-12-25 11:47 | Inpatient (IN) | payer OTHER ==
[~2016-12-25] VITALS: Ht 170.2 cm; Wt 84.5 kg
[~2016-12-25 11:47] MED LIST changes: +ALBU8.5H3 INH; +APIX2.5T PO; +CA CHLORIDE 10% 10 ML SYRINGE ONE; +EPINEPHrine 0.1 MG/ML SYG ONE; -FURO-110 PO; +FURO40TA4 ORAL; +LEVO750T25 PO; -LOSA1TAB20 PO; +NA BICARBONATE 8.4% 50 ML SYG ONE; +POTA10TA37 ORAL; +SILD20TA13 PO
[2016-12-25] MEDS ORDERED: SOD CHLORIDE 0.9% 1,000 ML IV STA (12:44)
[2016-12-25] MEDS ORDERED: ONDANSETRON 4 MG INJ IV STA ×2 (12:44→15:13)
[2016-12-25 13:20] LABS: ADD SCAN DIFF NO
[2016-12-25 13:25] LABS: BASOPHILS % 0.1 % (0.0-2.0); EOSINOPHILS % 0.2 % (0.0-7.0); HEMATOCRIT 45.8 % (42.0-52.0); HEMOGLOBIN 14.9 g/dl (14.0-18.0); LYMPHOCYTES % 11.9 % (15.0-51.0); MEAN CORPUSCULAR HEMOGLOBIN 29.2 pg (29.0-33.0); MEAN CORPUSCULAR HGB CONC 32.5 g/dl (32.0-37.0); MEAN CORPUSCULAR VOLUME 89.8 fl (82.0-101.0); MEAN PLATELET VOLUME 11.5 fl (7.4-10.4); MONOCYTE # 0.7 10^3/ul (0.3-0.9); MONOCYTES % 7.7 % (0.0-11.0); NEUTROPHIL # 6.9 10^3/ul (1.6-7.5); NEUTROPHILS % 79.2 % (39.0-77.0); PLATELET COUNT 192 10^3/UL (140-415); RED CELL DISTRIBUTION WIDTH 15.5 % (11.5-14.5); WHITE BLOOD COUNT 8.7 10^3/ul (4.8-10.8)
[2016-12-25 13:39] LABS: ALBUMIN 4.7 g/dl (3.3-4.9); ALBUMIN/GLOBULIN RATIO 2.23; BILIRUBIN,INDIRECT 0.8 mg/dl (0-1.1); BILIRUBIN,TOTAL 0.8 mg/dl (0.2-1.3); CREATININE 2.11 mg/dl (0.61-1.24); POTASSIUM 4.3 mmol/L (3.5-5.1); TOTAL PROTEIN 6.8 g/dl (6.1-8.1)
--- NOTE | 2016-12-25 13:50 | RADRPT ---
PROCEDURE: CT Abdomen and pelvis without contrast. CLINICAL INDICATION: Abdominal pain. Vomiting. TECHNIQUE: CT scan of the abdomen and pelvis without contrast was performed on a multidetector hig h-resolution CT scan. . Coronal and sagittal reformatted images were obtained from the axial [facility] e images. Standard CT scan of the abdomen pelvis without contrast protocols were performed. The total exam CTDI equals 14.46 mGy and the total exam DLP equals 895.74 mGy-cm. One or more of the following dose reduction techniques were used: - Automated exposure control. - Adjustment of the mA and/or kV according to patient size. Use of iterative reconstruction technique. COMPARISON: None. FINDINGS: The there is a moderate right basilar pleural effusion. There are parenchymal changes at both lung bases which may all be due to atelectasis and scarring. Acute right basilar infiltrate cannot be ex cluded. There is coronary artery disease. There is mild abdominal ascites demonstrated in the pouch of Seamus and right and left upper quadra nts of the abdomen. No localized intra-abdominal fluid collections to suggest abscess. No evidence of intra-abdominal free air. There is mild right retrocrural lymphadenopathy. No other evidence o f abdominal or pelvic lymphadenopathy. There is mild presacral edema. The stomach and small bowel are unremarkable. The appendix is not f ully demonstrated though there is no CT evidence of appendicitis. There is diverticulosis of the co david but no CT evidence of diverticulitis. The colon is otherwise unremarkable. The liver spleen pancreas gallbladder and left adrenal gland are unremarkable. No evidence biliary ductal dilation. Punctate calcification of the lateral limb of the right adrenal gland with the rig ht adrenal gland otherwise unremarkable. The kidneys are normal in size without calcified renal calculi, hydronephrosis or intra renal masses bilaterally. The ureters are unremarkable. The urinary bladder is unremarkable. The prostate is unremarkable. Extensive atherosclerotic vascular disease of the aorta and iliac arteries but no evidence of aneury sm. Extensive degenerative changes of the lower thoracic and lumbar spine without acute osseous findings are osteoblastic/osteolytic lesions. IMPRESSION: 1. Moderate right pleural effusion. 2. Bilateral lower lobe scratch of bibasilar parenchymal changes most likely all due to atelectasis and scarring however an acute infiltrate at the right base cannot be excluded. 3. Mild abdominal ascites. No abdominal abscess or free air. 4. Mild right retrocrural lymphadenopathy. 5. Mild presacral edema. 6. Colonic diverticulosis without CT evidence of diverticulitis. 7. Anasarca. RPTAT:AAJJ Kaiden Florian Physician Date Time Electronically viewed and signed by Kaiden Florian, Physician on 12/25/2016 13:49 BM/
[2016-12-25 13:51] LABS: TROPONIN-I 0.037 ng/ml (0.00-0.12)
[2016-12-25 14:18] LABS: ADD UMIC NO; UR BILIRUBIN (Dip) NEGATIVE (NEGATIVE); UR BLOOD (Dip) NEGATIVE (NEGATIVE); UR CLARITY CLEAR (CLEAR); UR COLOR LT. YELLOW (YELLOW); UR GLUCOSE (Dip) NEGATIVE (NEGATIVE); UR KETONES (Dip) NEGATIVE (NEGATIVE); UR LEUKOCYTE ESTERASE (Dip) NEGATIVE (NEGATIVE); UR NITRITE (Dip) NEGATIVE (NEGATIVE); UR TOTAL PROTEIN (Dip) NEGATIVE (NEGATIVE); UR UROBILINOGEN (Dip) 0.2 E.U./dL (0.1-1.0)
[2016-12-25 15:12] VITALS: TEMP 99
--- NOTE | 2016-12-25 15:23 | ERA ---
ER Documentation Chief Complaint Date/Time DATE: 12/25/16 TIME: 15:19 Chief Complaint n/v x 2 days; general weakness; recently discharge from hospital HPI 71-year-old male presents to the emergency room with vomiting for 2 days as well as whole body weakness. He does not particularly have any abdominal pain. He has chronic shortness of breath on home O2. He states the shortness of breath is no worse than usual. He denies chest pain. States that he really has no pain. He is not able to tolerate any p.o. solids and when he drinks liquid he feels like he has to vomit. Denies fever and chills. ROS All systems reviewed and are negative except as per history of present illness. Medications Home Meds Active Scripts Apixaban* (Eliquis*) 2.5 Mg Tablet, 2.5 MG PO BID, #60 TAB Prov:KATIEFLY S. 12/18/16 Albuterol Sulfate* (Proair HFA*) 8.5 Gm Hfa.aer.ad, 2 PUFF INH Q4H Y for WHEEZING AND SOB, #1 INHALER 4 Refills Prov:ISAC BROTHERSP S. 12/18/16 Prasugrel Hydrochloride* (Effient*) 10 Mg Tablet, 10 MG PO DAILY, #30 TAB 4 Refills Prov:ISAC BROTHERSP S. 12/18/16 Sildenafil Citrate* (Revatio*) 20 Mg Tab, 20 MG PO TID, #90 TAB 4 Refills Prov:ZEVFLY S. 12/18/16 Levofloxacin* (Levaquin*) 750 Mg Tablet, 750 MG PO DAILY for 5 Days, TAB Prov:ISAC BROTHERSP S. 12/18/16 Reported Medications Potassium Chloride* (K-Dur*) 10 Meq Tab.prt.sr, 10 MEQ ORAL DAILY, #30 12/16/16 Furosemide* (Furosemide*) 40 Mg Tablet, 40 MG ORAL DAILY, #30 12/16/16 Budesonide-Formoterol Fumarate* (Symbicort*) 160-4.5 Hfa.aer.ad, 2 PUFF INHALATION BID, #1 EACH 08/20/16 Hydralazine Hcl* (Hydralazine Hcl*) 50 Mg Tab, 50 MG PO Q8, #90 TAB 08/20/16 Atorvastatin Calcium* (Atorvastatin Calcium*) 20 Mg Tablet, 20 MG PO QHS, #30 TAB 08/23/15 Aspirin* (Aspirin* EC) 81 Mg Tablet.dr, 81 MG PO DAILY, TAB 08/23/15 Metoprolol Succinate* (Toprol XL*) 25 Mg Tab.sr.24h, 25 MG PO DAILY, #30 TAB 08/23/15 Amlodipine Besylate* (Amlodipine Besylate*) 10 Mg Tablet, 10 MG PO DAILY, #30 TAB 08/23/15 Metformin* (Glucophage*) 1,000 Mg Tablet, 1000 MG PO BID, #60 TAB 08/23/15 Allopurinol* (Allopurinol*) 300 Mg Tablet, 300 MG PO DAILY, TAB 08/23/15 Discontinued Reported Medications Losartan Potassium* (Losartan Potassium*) 100 Mg Tablet, 100 MG ORAL DAILY, #90 12/16/16 Allergies Allergies: Coded Allergies: No Known Allergy (Unverified , 12/25/16) PMhx/Soc History of Surgery: No (stents x2m, foot sx ) Anesthesia Reaction: No Hx Neurological Disorder: No Hx Respiratory Disorders: Yes (copd) Hx Cardiac Disorders: Yes (chf, stents) Hx Psychiatric Problems: No Hx Miscellaneous Medical Probl: No Hx Alcohol Use: No Hx Substance Use: No Hx Tobacco Use: Yes Smoking Status: Never smoker Physical Exam Vitals Vital Signs Date Time Temp Pulse Resp B/P Pulse Ox O2 Delivery O2 Flow Rate FiO2 12/25/16 11:58 97.3 104 20 137/82 92 Physical Exam Const: [] Mild distress, appears uncomfortable Head: Atraumatic Eyes: Normal Conjunctiva ENT: Normal External Ears, Nose and Mouth. Slightly dry mucous membranes of mouth Neck: Full range of motion..~ No meningismus., No JVD Resp: Clear to auscultation bilaterally except for decreased bibasilar breath sounds. No wheezes Cardio: Regular tachycardia, no murmurs Abd: Soft, non tender, non distended. Normal bowel sounds Skin: No petechiae or rashes Back: No midline or flank tenderness Ext: No cyanosis, or edema Neur: Awake and alert and oriented 3, no focal deficits Psych: Normal Mood and Affect Result Diagram: 12/25/16 1313 12/25/16 1313 Results 24 hrs Laboratory Tests Test 12/25/16 13:13 12/25/16 13:40 12/25/16 13:55 White Blood Count 8.710^3/ul Red Blood Count 5.1010^6/ul Hemoglobin 14.9g/dl Hematocrit 45.8% Mean Corpuscular Volume 89.8fl Mean Corpuscular Hemoglobin 29.2pg Mean Corpuscular Hemoglobin Concent 32.5g/dl Red Cell Distribution Width 15.5% Platelet Count 28572^3/UL Mean Platelet Volume 11.5fl Neutrophils % 79.2% Lymphocytes % 11.9% Monocytes % 7.7% Eosinophils % 0.2% Basophils % 0.1% Nucleated Red Blood Cells % 0.0/100WBC Neutrophils # 6.910^3/ul Lymphocytes # 1.010^3/ul Monocytes # 0.710^3/ul Eosinophils # 0.010^3/ul Basophils # 0.010^3/ul Nucleated Red Blood Cells # 0.010^3/ul Sodium Level 143mmol/L Potassium Level 4.3mmol/L Chloride Level 103mmol/L Carbon Dioxide Level 25mmol/L Anion Gap 19 Blood Urea Nitrogen 80mg/dl Creatinine 2.11mg/dl Glucose Level 130mg/dl Calcium Level 10.0mg/dl Total Bilirubin 0.8mg/dl Direct Bilirubin 0.00mg/dl Indirect Bilirubin 0.8mg/dl Aspartate Amino Transf (AST/SGOT) 71IU/L Alanine Aminotransferase (ALT/SGPT) 104IU/L Alkaline Phosphatase 86IU/L Troponin I 0.037ng/ml Total Protein 6.8g/dl Albumin 4.7g/dl Globulin 2.10g/dl Albumin/Globulin Ratio 2.23 Lipase 367U/L Lactic Acid Level 2.5mmol/L Urine Color LT. YELLOW Urine Clarity CLEAR Urine pH 5.5 Urine Specific [place] 1.020 Urine Ketones NEGATIVE Urine Nitrite NEGATIVE Urine Bilirubin NEGATIVE Urine Urobilinogen 0.2 E.U./dL Urine Leukocyte Esterase NEGATIVE Urine Hemoglobin NEGATIVE Urine Glucose NEGATIVE% Urine Total Protein NEGATIVE Current Medications Medications (Trade) Dose Ordered Sig/Renato Route PRN Reason Start Time Stop Time Status Last Admin Dose Admin Sodium Chloride (NS) 1,000 ml @ 1,000 mls/hr Q1H STAT IV 12/25/16 12:44 12/25/16 13:43 DC 12/25/16 13:07 Ondansetron HCl (Zofran Inj) 4 mg ONCE STAT IV 12/25/16 12:44 12/25/16 12:46 DC 12/25/16 13:05 Ondansetron HCl (Zofran Inj) 4 mg ONCE STAT IV 12/25/16 15:13 12/25/16 15:15 DC Lorazepam (Ativan) 1 mg ONCE ONCE IV 12/25/16 15:30 12/25/16 15:31 Procedures/MDM Intractable nausea and vomiting as well as dehydration and acute kidney injury secondary to dehydration. Patient is persistently tachycardic even after fluid administration. Elevated lactic acid. No signs of any acute infection with a normal white count. Does have a history of congestive heart failure with pleural effusion on CT. No signs of acute cardiac ischemia. Patient does have baseline elevated creatinine but was previously discharged with creatinine around 1.5 and 1.7. Also has a highly elevated BUN which may be contributing to his generalized weakness because of uremia. Patient will be admitted for control of his nausea as well as careful hydration in a patient with active congestive heart failure. EKG interpretation: Normal sinus rhythm without ST elevation or depression suggestive of ischemia. latrine cleaner interpretation: Persistent mild tachycardia. No other arrhythmias CT abdomen pelvis interpretation: Pleural effusion with no signs of acute intra- abdominal process, no free air, no obstruction, no abnormal fat stranding, no fractures. Departure Diagnosis: Primary Impression: Intractable vomiting Additional Impressions: Dehydration Acute kidney injury Lactic acidosis Congestive heart failure Condition: Serious CLARENCEIRENEEDWIN DO Dec 25, 2016 15:23
[2016-12-25] MEDS ORDERED: SOD CHLORIDE 0.9% 1,000 ML IV ONE (15:30)
[2016-12-25] MEDS ORDERED: LORAZEPAM 2 MG INJ IV ONE (15:30)
--- NOTE | 2016-12-25 17:55 | QN ---
Documentation Comment Time: 17:50. Discussed with Dr. Yeison Kwong. He follows Mr Alicja as an outpatient and knows him very well. He will admit the patient to [facility] for further evaluation and management. JOHNNY MICHAELS MD Dec 25, 2016 17:55
[2016-12-25] MEDS ORDERED: ONDANSETRON 4 MG INJ IV PRN ×2 (18:00→19:30)
[2016-12-25] MEDS ORDERED: ACETAMINOPHEN 325 MG TAB PO PRN ×2 (18:00→19:30)
--- NOTE | 2016-12-25 18:24 | RADRPT ---
PROCEDURE: XR Chest. CLINICAL INDICATION: Shortness of breath. TECHNIQUE: Single frontal view. COMPARISON: 12/16/2016. FINDINGS: Surgical clips are present in the left side of the neck. There is atelectasis at the lung bases. R ight basilar pneumonia and small right pleural effusion are improved. There is no left pleural effu ham. The heart is enlarged. There is calcification in the aorta consistent with atherosclerosis. There is no pneumothorax. IMPRESSION: 1. Improved appearance of the right lung base and smaller right pleural effusion. 2. No other change from 12/16/2016. RPTAT: QQ .Ji Cintron MD, MD Date Time Electronically viewed and signed by .Ji Cintron MD, MD on 12/25/2016 18:23 .R/
[2016-12-25 19:03] VITALS: PULSE 105
[2016-12-25] MEDS ORDERED: SOD CHLORIDE 0.9% 1,000 ML IV SCH (19:08)
[2016-12-25] MEDS ORDERED: LORAZEPAM 2 MG INJ IV PRN (19:30)
[2016-12-25] MEDS ORDERED: MAGNESIUM HYDROXIDE 30ML CUP PO PRN (19:30)
[2016-12-25] MEDS ORDERED: NACL 0.9% 3 ML SYG IV SCH (19:30)
[2016-12-25] MEDS ORDERED: NITROGLYCERIN (SL) 0.4 MG TAB SL PRN (19:30)
[2016-12-25] MEDS ORDERED: ZOLPIDEM 5 MG TAB PO PRN (19:30)
[2016-12-25] MEDS ORDERED: HYDROCODONE/APAP (5/325) TAB PO PRN (19:30)
[2016-12-25] MEDS ORDERED: morphine 2 MG INJ IV PRN (19:30)
[2016-12-25] MEDS ORDERED: DOCUSATE SODIUM 100 MG CAP PO PRN (19:30)
[2016-12-25 19:53] VITALS: Ht 170.2 cm; Wt 84.5 kg
[2016-12-25] MEDS ORDERED: LEVALBUTEROL (NEB) 0.63 MG/3 ML AMP HHN PRN (20:00)
[2016-12-25] MEDS ORDERED: GLUCAGON 1 MG INJ IM PRN (20:00)
[2016-12-25] MEDS ORDERED: IPRATROPIUM (NEB) 0.5 MG/2.5 ML AMP HHN PRN (20:00)
[2016-12-25] MEDS ORDERED: IPRATROPIUM (NEB) 0.5 MG/2.5 ML AMP HHN SCH (20:00)
[2016-12-25] MEDS ORDERED: GLUCOSE GEL 15 GRAM TUBE BUCCAL PRN (20:00)
[2016-12-25] MEDS ORDERED: GLUCOSE GEL 15 GRAM TUBE PO PRN ×2 (20:00)
[2016-12-25] MEDS ORDERED: LEVALBUTEROL (NEB) 0.63 MG/3 ML AMP HHN SCH (20:00)
[2016-12-25] MEDS ORDERED: DEXTROSE 50% 50 ML SYRINGE IV PRN ×2 (20:00)
[2016-12-25 20:19] VITALS: BP 127/79; RESP 20
[2016-12-25] MEDS ORDERED: INSULIN ASPART [NOVOLOG] 3 ML PEN SC SCH (21:00)
[2016-12-25] MEDS ORDERED: ATORVASTATIN 20 MG TAB PO SCH (21:00)
[2016-12-25] MEDS ORDERED: CEFEPIME 1GM/50 ML (PMX) 50 ML IVPB SCH (21:00)
[2016-12-25] MEDS ORDERED: METOPROLOL 25 MG TAB PO SCH (21:00)
[2016-12-25] MEDS ORDERED: APIXABAN 5 MG TABLET PO SCH (21:00)
[2016-12-25 21:59] LABS: TROPONIN-I 0.039 ng/ml (0.00-0.12)
[2016-12-25 22:02] LABS: CK-MB 2.26 ng/ml (0.0-2.4)
--- NOTE | 2016-12-25 22:12 | HP ---
DATE OF ADMISSION: 12/25/2016 REASON FOR ADMISSION: Nausea, progressive ongoing shortness of breath, acute renal failure, periphe ral edema and anasarca. HISTORY OF PRESENT ILLNESS: The patient is a very unfortunate, very sick 71-year-old Ghanaian male with history of diabetes mellitus; COPD, heavy former smoker; hypertension; pulmonary hypertension; CKD; coronary artery disease, status post PCI at [facility] about a year ago, on Effient; a lso O2 dependent who was admitted just recently to the hospital at [facility] on 0 12/16/2016 secondary to shortness of breath and cough. During his hospital stay, he was seen by medical center hospital physicians including Dr. Aryan Epstein, the animal husbandry technician; Dr. Yuan Gonzalez, the bushel girl; susanne Swanson, the cardiology clinical consultant. The patient was started on empiric anticoagulation with Eliquis secondary to his underlying severe pulmonary hypertension and right ventricular strain, which may be due to chronic thromboembolic disease. During that hospitalization, a VQ scan showed low indeterminate probability for PE. The patient was started also on Viagra for pulmonary hyperten ham. He was discharged with 40 mg of oral Lasix and Levaquin for possible pneumonia. Unfortunatel y, in the past 2 days, the patient has not been able to eat much as he feels very nauseated. He wou ld try to vomit, but nothing would come out. He continues to have shortness of breath which is over all chronic for him as he's unable to walk more than a few steps. In addition, he continues to have significant lower extremity edema. In the ER, he was evaluated today, was found to have elevated B UN and creatinine of 80 over 2.1, lactic acid of 2.5. Because of nausea and vomiting, he underwent a CT scan of the abdomen and pelvis which showed moderate right pleural effusion, bilateral lower lo be ____ parenchymal changes most likely due to atelectasis and scarring. However, an acute infiltra te at the right base cannot be excluded. There is mild abdominal ascites. No abdominal abscess or free air. There is mild right retrocrural lymphadenopathy, mild presacral edema, colonic diverticul osis without evidence of diverticulitis, and anasarca was seen. The patient stated that he has also problems swallowing. He denies any new weaknesses or numbness. He denies any possibility of strok e. He denies chest pain but does report shortness of breath as he does use home O2. In the ER, calixto gomez received a fluid challenge, Juanpablo Goldberg, and he was admitted in guarded condition, will be a dmitted to the telemetry unit. Family is at bedside including his and grandson. I spoke with them. The patient is admitted for further care. PAST MEDICAL HISTORY: Includes diabetes mellitus, COPD; O2 dependence; coronary artery disease, sta tus post PCI; diastolic dysfunction heart failure; severe pulmonary hypertension; questionable hepat orenal syndrome; CKD; peripheral edema; dyslipidemia. SURGICAL HISTORY: PCI x2, history of left carotid endarterectomy and foot surgery in the past. FAMILY HISTORY: Mother . She was paralyzed. She had hypertension. Father was a soldier. He when the patient was in the womb with his mother. SOCIAL HISTORY: Tobacco: Used to smoke up to 7 years ago, 1 pack a day most of his life. Alcohol: Used to drink beer routinely, but he quit that as well. IV ____ denies. The patient is + 3. ALLERGIES: NO KNOWN DRUG ALLERGIES. MEDICATIONS: Recent medications that he was discharged on and I believe he was taking include the f ollowin. Levaquin 750 for 5 days. 2. ProAir HFA q.4 p.r.n. 3. Effient 10 mg daily. 4. Revatio or Viagra 20 mg t.i.d. 5. Allopurinol 300 mg daily. 6. Amlodipine 10 mg daily. 7. Aspirin 81 mg daily. 8. Atorvastatin 20 mg at bedtime. 9. Symbicort 2 puffs b.i.d. 10. Lasix 40 mg daily. 11. Hydralazine 50 q.8 hours. 12. Metformin 1 gram b.i.d. 13. Toprol-XL 25 mg daily. 14. KCl 10 mEq daily. 15. Eliquis 2.5 mg b.i.d. The patient's no experience is at [facility], the one who performed the PCI, and he also has an outside PMD. I was his PMD more than a year ago as the [facility] REVIEW OF SYSTEMS: See HPI. PHYSICAL EXAMINATION: VITAL SIGNS: Temperature is 99, pulse is 105, respirations 18, blood pressure 140/90, saturation 94 % on a face mask 6 L. GENERAL: The patient is in no acute distress but sick looking. The patient is pale. NECK: No sherwin JVD. CARDIOVASCULAR: S1 and S2, slightly tachycardic. LUNGS: Mild rhonchi bilaterally. ABDOMEN: Distended with evidence of slight ascites. EXTREMITIES: Lower extremity +2 to +3 edema of the lower extremities, right greater than left. No evidence of skin breakdown. Upper extremity trace edema. The patient is moving all of his extremit ies. NEUROLOGIC: Speech appears to be intact. LABORATORY DATA: White count is 8.7, hemoglobin 14.9, hematocrit 46, platelet count is 192. Neutro phils 79%, lymphocytes 12%. Chemistry: Sodium is 143, potassium 4.3, chloride 103, bicarbonate 25, BUN is 80, creatinine 2.11, glucose of 130, lactic acid is high at 2.5, calcium 10.0, AST 71, ALT i s 104, alkaline phosphatase 86. Troponin is negative at 0.037. Albumin 4.7. Lipase is slightly hi gh at 367. UA essentially negative. IMAGING: Chest x-ray does show improved appearance of the right lung base and small right pleural e ffusion. No other change from 12/16/2016. CT scan of the abdomen and pelvis was reviewed, see above. EKG shows sinus tachycardia at 101, possible left atrial enlargement, left posterior fascicular bloc k, T-wave abnormality ____ inferior and anterior ischemia. ASSESSMENT AND PLAN: This is a very unfortunate 71-year-old [place]ian male with history of diabetes mellitus, coronary artery disease, chronic obstructive pulmonary disease, pulmonary hypertension, O2 dependent, chronic kidney disease, peripheral edema who continues to have progressive shortness of breath, now presents with nausea, vomiting, dehydration, worsening kidney function and lower extremi ty edema. 1. Respiratory. The patient with shortness of breath. This may be multifactorial secondary to isaac stolic dysfunction heart failure and his pulmonary hypertension. Overall, chest x-ray actually show s improvement. Other possibility includes aspiration pneumonia as the patient does have some dyspha yajaira per patient. Speech Therapy will be consulted. Will start the patient on cefepime, obtain MRSA of the nares. Breathing treatments will be provided as needed. Again, I would hold diuretic thera py for now at least until tomorrow as I would like to monitor patient's kidney function. 2. Cardiovascular. The patient with pulmonary hypertension with preserved ejection fraction on rec ent echocardiogram, but he does have severe pulmonary hypertension and diastolic dysfunction heart f ailure. The patient will be placed on aspirin, Effient and Eliquis. Cardiology to follow. Will st art the patient on beta blockers as the patient is tachycardic. Will consult Cardiology, obtain ser ial troponins. 3. Infectious disease. The patient with mild low-grade fever, has been discharged recently on Leva phillip. Will switch to cefepime for now as patient with lactic acidosis. 4. Renal. The patient with acute renal failure, likely from dehydration as the patient has been ta анна diuretics and also has not been drinking or eating the past 2 days. Will hydrate him gently an d observe, but of course I am concerned about his pulmonary hypertension and fluid overload state. The patient may continue to worsen, and dialysis is a possibility in the future if he continues to h ave anasarca, significant edema and fluid overload state in the setting of renal insufficiency, and administration of diuretics may worsen his condition. 5. The patient will be placed on Eliquis for possible thrombosis. Lower extremity ultrasound will be provided. Dr. Epstein, the animal husbandry technician, recommended him to be on anticoagulation therapy. 6. Dysphagia. Speech Therapy to evaluate. In the meantime will advance to clear liquid diet as to lerated. 7. The patient will be placed on Protonix for gastrointestinal prophylaxis. 8. Diabetes mellitus. Check Accu-Chek q.a.c. and bedtime. Check hemoglobin A1c. In the meantime, the patient will be placed on insulin sliding scale until diet is advanced fully and will start him on weight-based insulin. 9. Anxiolytic p.r.n. for anxiety. Overall, the patient's condition is guarded. The patient has mu ltisystem problems including pulmonary, cardiovascular, renal. 10. Anasarca, most likely secondary to his pulmonary hypertension. Other possibility includes cirr hosis as the patient was a former alcohol user. Check hepatitis panel. Check alpha-fetoprotein. 11. History of coronary artery disease. Continue aspirin and Effient and statins. The patient had recent echocardiogram. Will obtain also a carotid ultrasound as he had history of endarterectomy. Also patient can be admitted to the telemetry unit in guarded condition. We will follow. Dictated By: ASHWINI MEJIA/JOVANNY Conf#: [id number] DID#: [id number]
[2016-12-26] MEDS ORDERED: MAGNESIUM SULFATE 1 GM/100 ML D5W IVPB ONE
[2016-12-26] MEDS ORDERED: DOPamine-D5W 1.6 MG/ML 250 ML ONE
[2016-12-26] MEDS ORDERED: EPINEPHrine 0.1 MG/ML SYG ONE ×3 (01:11→01:27)
--- NOTE | 2016-12-26 03:34 | DES ---
DATE OF ADMISSION: 12/25/2016 DATE OF : SUMMARY The patient was admitted on 12/25/2016. The patient on 12/26/2016. TIME OF : 1:46 a.m. REASON FOR ADMISSION: Nausea, vomiting, acute renal failure, shortness of breath, peripheral edema. HOSPITAL COURSE: The patient is a very unfortunate, very sick 71-year-old Lebanese male with history of diabetes mellitus, COPD, former heavy smoker, hypertension, pulmonary hypertension, CKD, coronary artery disease, status post PCI at [facility] about a year ago, on Effient, he is O2 dependent, recently admitted to [facility] on 12/16/2016, secondary to shortness of breath and cough. Patient was treated for pneumonia, diagnosed with pulmonary hypertension, diastolic dysfunction heart failure, also has baseline CKD. He was placed on anticoagulation. The patient was discharged with 40 mg of Lasix and treated with Levaquin for pneumonia. In the past 2 days prior to admission he states that he has not been eating much as he stays nauseated and with the sensation to vomit. He presented to the ER. He was found to have a lactic acid of 2.5, BUN and creatinine elevated at 80/2.1. Chest x-ray revealed improved appearance of the right lung base and small right pleural effusion. CT scan of the abdomen and pelvis was done as well which showed moderate right pleural effusion, bilateral lower lobe parenchymal changes most likely due to atelectasis and scarring; however, an acute infiltrate at the right base cannot be excluded. There is mild abdominal ascites. I saw the patient in the emergency department and also requested cardiology and nephrology to see the patient in consultation. Both consultants were contacted. My order was to admit the patient to the telemetry unit. I started the patient on gentle hydration, antibiotics with cefepime, anticoagulation with Eliquis and continued aspirin and Effient as the patient is status post PCI. The patient was placed on insulin sliding scale and I placed him only on clear liquid diet until speech therapist to evaluate him. He was found to have lower extremity edema and I ordered a venous ultrasound, but in the meantime, I did anticoagulate him with Eliquis. Recent also VQ scan showed low probability of pulmonary embolism. I received a call at about 1:30, the patient was found nonresponsive. Per nursing staff, the patient was conversing just not too long ago before that. ER physician performed full CPR and unfortunately the patient was pronounced at 1:46 a.m. I spoke to the family and informed them of the patient's . FINAL DIAGNOSES: 1. Status post cardiac arrest. 2. Acute renal failure. 3. Lactic acidosis. 4. Shortness of breath, ongoing and chronic. 5. Chronic obstructive pulmonary disease, O2 dependent. 6. Coronary artery disease. 7. Diabetes mellitus. 8. Severe pulmonary hypertension. 9. Congestive heart failure, diastolic dysfunction. 10. Dysphagia. 11. Nausea and vomiting. 12. Low grade fever, temperature of 99, rule out pneumonia, rule out aspiration pneumonia. 13. Questionable hepatorenal syndrome. 14. Transaminitis. 15. Rule out cirrhosis. Overall, the patient was very sick as he was O2 dependent, apparently not doing well for quite some time. The patient again unfortunately at 1:46 a.m. on 12/26/2016. Dictated By: ASHWINI MEJIA/JOVANNY Conf#: [id number] DID#: [id number] CC: ASHWINI STARK MD;*EndCC* MTDD
[2016-12-26] MEDS ORDERED: PANTOPRAZOLE (EC) 40 MG TAB PO SCH (06:00)
--- NOTE | 2016-12-26 06:36 | QN ---
Documentation Comment CODE BLUE note I was called to the [facility] floor for a CODE BLUE. Reportedly the nurse was doing rounds on the patient when he noticed the patient did not have a pulse and was unresponsive. His downtime was unknown. CPR was started immediately. 1 dose of epinephrine was given prior to my arrival. CPR was in progress when I arrived. The patient was cyanotic with no spontaneous respirations and no pulses. ACLS was performed. See CODE BLUE note for details. Patient had multiple episodes where he had return of spontaneous circulation with a faint pulse then became asystolic again. CPR was continued for about 45 minutes, after which time of was called after recurrent asystole. The patient's EKG showed changes but nothing consistent with acute STEMI. Even though the patient had new EKG changes, he was not anywhere near stable for the cardiac laborer pipelines. Dr. Kwong, the admitting physician, was informed. He contacted the family. EKG: Rate/Rhythm: Sinus tachycardia at 114 QRS, ST, T-waves: Right bundle branch block, possible anteroseptal infarct Impression: Possible acute ischemia, no STEMI Emergent endotracheal Intubation by me: RSI: None Blade: [place] scope 4 ET Tube: 7.5 cm Depth: 23 cm at the lip Intubation confirmed by colorimetric CO2, equal breath sounds, quiet over the stomach. Critical Care Time: 45 minutes Treatments/Evaluations: Close monitoring and treatment of unstable vital signs, cardiorespiratory, and neurologic status, while maintaining tight balance of fluid, respiratory, and cardiac interventions. This time includes discussing the case with the patient and the patients family. This time does not include all procedures stated elsewhere in this record. This time also includes reviewing old records, labs and radiological studies. This time includes examining and re-examining the patient. Additionally, this time also includes arranging care with admitting and consulting physicians. DAJA PRATT MD Dec 26, 2016 06:36
--- NOTE | 2016-12-26 08:20 | RADRPT ---
PROCEDURE: US Carotids. CLINICAL INDICATION: bruit , dysphagia, hx cad, ascvd TECHNIQUE: Multiple sonographic of the carotid bifurcation region and vertebral arteries were obta ined utilizing pink scale, duplex and color-flow imaging. The images were reviewed on a PACS worksta tion. COMPARISON: No prior studies are available for comparison. FINDINGS: Evaluation of the right carotid bifurcation region reveals moderate calcific atherosclerotic disease . Evaluation of the left carotid bifurcation region reveals mild calcific atherosclerotic disease. There is antegrade flow within the vertebral arteries bilaterally. RIGHT CAROTID MEASUREMENTS: Common Carotid Ezbmnb95.4 (cm/sec) Internal Carotid Artery - swymzybz20.2 (cm/sec) Internal Carotid Artery - mid72.8 (cm/sec) Internal Carotid Artery - jqdyii40.4 (cm/sec) Internal Carotid/Common Carotid1.9 LEFT CAROTID MEASUREMENTS: Common Carotid Wzkval30.3 (cm/sec) Internal Carotid Artery - mstwmywn77.1 (cm/sec) Internal Carotid Artery - mid39.7 (cm/sec) Internal Carotid Artery - goqaaf21.2 (cm/sec) Internal Carotid/Common Carotid0.98 RPTAT: AA IMPRESSION: No evidence for hemodynamically significant stenosis in the bilateral internal carotid arteries - va lidated velocity measurements with angiographic measurements, velocity criteria are extrapolated fro m diameter data as defined by the Society of Radiologists in Ultrasound Consensus Conference Radiolo gy 2003; 229;340-346. This study does indirectly reference the measurement of the distal ICA diamet er as the denominator for stenosis measurement. Normal antegrade flow in the vertebral arteries bilaterally. .David Hughes MD, Date Time Electronically viewed and signed by .David Hughes MD, MD on 12/26/2016 08:20 .S/
--- NOTE | 2016-12-26 08:22 | RADRPT ---
PROCEDURE: BILATERAL US DVT. CLINICAL INDICATION: Lower extremity edema. TECHNIQUE: Multiple longitudinal and transverse images of the bilateral lower extremity veins were obtained with pink scale and color Doppler imaging with augmentation and compression techniques. COMPARISON: No prior studies are available for comparison. FINDINGS: RIGHT: The right common femoral, femoral, and popliteal veins are normally compressible throughout w ith color flow demonstrating normal filling of these vessels. No filling defects are seen. LEFT: The left common femoral, femoral, and popliteal veins are normally compressible throughout wi th color flow demonstrate normal filling of these vessel.No filling defects are seen. IMPRESSION: 1. No evidence of a deep vein thrombosis involving the bilateral lower extremities. RPTAT:PP .Benjamin Dowling MD, MD Date Time Electronically viewed and signed by .Benjamin Dowling MD, on 12/26/2016 08:21 .V/
[2016-12-26] MEDS ORDERED: ASPIRIN (EC) 81 MG TAB PO SCH (09:00)
[2016-12-26] MEDS ORDERED: PRASUGREL HYDROCHLORIDE 10 MG TABLET PO SCH (09:00)
--- NOTE | 2016-12-26 15:46 | RADRPT ---
Vent Rate: 114 bpm RR Interval: 0 msec NM Interval: 192 msec QRS Duration: 128 msec QT Interval: 330 msec QTC Interval: 454 msec P-R-T [place]: 79 - 178 - 61 degrees Sinus tachycardia Right bundle branch block Anteroseptal infarct , age undetermined Abnormal ECG Electronically Signed By: Eddie Gutierrez [id number]
== END 2016-12-26 01:50 | disposition expired | DRG 682 ==
LOC: E/R 11:47 → MS2 17:53
PROVIDERS: ADMIT Internal Medicine; ATTEND Internal Medicine
PROC: 0BH17EZ Insertion of Endotracheal Airway into Trachea, Via Natural or Artificial Opening (ICD-10-PCS; principal; 2016-12-26)
PROC: 5A12012 Performance of Cardiac Output, Single, Manual (ICD-10-PCS; 2016-12-26)
DX: N17.9 Acute kidney failure, unspecified (principal); I50.33 Acute on chronic diastolic (congestive) heart failure; E87.2 Acidosis; E11.22 Type 2 diabetes mellitus with diabetic chronic kidney disease; I13.0 Hypertensive heart and chronic kidney disease with heart failure and stage 1 through stage 4 chronic kidney disease, or unspecified chronic kidney disease; Z99.81 Dependence on supplemental oxygen; N18.9 Chronic kidney disease, unspecified; E86.0 Dehydration; I25.10 Atherosclerotic heart disease of native coronary artery without angina pectoris; F41.9 Anxiety disorder, unspecified; J44.9 Chronic obstructive pulmonary disease, unspecified; Z79.4 Long term (current) use of insulin; Z87.891 Personal history of nicotine dependence
CPT/HCPCS: 31500; 36415; 71010; 74176; 80053; 81003; 82550; 82553; 82962; 83605; 83690; 84484; 85025; 92950; 93005; 93880; 93970; 94664; 96374; 96375; 96376; J0171; J0692; J1265; J1815; J2060; J2405; J3475; J7030